=== PATIENT | female | born 1980 | race African-American/Black ===

== ENCOUNTER 2017-03-05 08:26 | Emergency (ER) | payer MEDICARE, MEDICAID ==
[~2017-03-05] VITALS: Ht 165.1 cm; Wt 99.8 kg
[~2017-03-05 08:26] MED LIST: DEXAMETHASONE PO; INSLANTI SUBCUT; LEVE100012 PO; NOVOLOG INSULIN SUBCUT
[2017-03-05 08:37] VITALS: BP 148/95
== END 2017-03-05 09:20 | disposition home or self-care (01) ==
LOC: ER 08:29
DX: J03.90 Acute tonsillitis, unspecified (principal); E11.9 Type 2 diabetes mellitus without complications; E78.5 Hyperlipidemia, unspecified; I10 Essential (primary) hypertension; Z98.51 Tubal ligation status

== ENCOUNTER 2017-07-09 14:19 | Emergency (ER) | payer MEDICARE, MEDICAID ==
[~2017-07-09] VITALS: Ht 165.1 cm; Wt 100.7 kg
[2017-07-09 14:36] VITALS: BP 144/93
[2017-07-09] MEDS ORDERED: methylPREDNISolone SOD SUCC 125 MG/2 ML VL IM ONE (19:00)
[2017-07-09] MEDS ORDERED: KETOROLAC TROMETH 60MG/2ML VIAL IM ONE (19:00)
== END 2017-07-09 19:11 | disposition home or self-care (01) ==
LOC: ER 14:25
DX: M54.16 Radiculopathy, lumbar region (principal); M79.1 Myalgia; E11.9 Type 2 diabetes mellitus without complications; E78.5 Hyperlipidemia, unspecified; I10 Essential (primary) hypertension; Z79.899 Other long term (current) drug therapy; Z98.51 Tubal ligation status
CPT/HCPCS: 96372; 99284; J1885; J2930

== ENCOUNTER 2017-09-16 08:16 | Emergency (ER) | payer MEDICAID, MEDICARE ==
[~2017-09-16] VITALS: Ht 165.1 cm; Wt 99.8 kg
[2017-09-16 08:35] VITALS: BP 138/91
== END 2017-09-16 09:39 | disposition home or self-care (01) ==
LOC: ER 08:16
DX: J20.9 Acute bronchitis, unspecified (principal); E11.9 Type 2 diabetes mellitus without complications; E78.5 Hyperlipidemia, unspecified; I10 Essential (primary) hypertension; Z98.51 Tubal ligation status

== ENCOUNTER 2018-04-25 17:12 | Emergency (ER) | payer MEDICARE ==
[~2018-04-25] VITALS: Ht 165.1 cm; Wt 103.9 kg
[2018-04-25 17:54] VITALS: BP 143/97
== END 2018-04-25 18:35 | disposition home or self-care (01) ==
LOC: ER 17:12
DX: R05 Cough (principal); E11.9 Type 2 diabetes mellitus without complications; E78.5 Hyperlipidemia, unspecified; I10 Essential (primary) hypertension; Z98.51 Tubal ligation status

== ENCOUNTER 2019-04-07 19:25 | Emergency (ER) | payer MEDICARE ==
[~2019-04-07] VITALS: Ht 165.1 cm; Wt 99.8 kg
[~2019-04-07 19:25] MED LIST changes: -DEXAMETHASONE PO; +KEP500T PO; -LEVE100012 PO; +LISI-646 PO; +SIMV-8 PO; +TRAZ100T2 PO
[2019-04-07 19:30] VITALS: BP 118/68
[2019-04-07 22:23] LABS: Urine Bacteria NONE SEEN /hpf (None Seen); Urine Blood Negative /uL (Negative); Urine Mucus FEW (None Seen); Urine Specific Gravity 1.034 (1.001-1.035); Urine WBC 3 /hpf (0 - 5)
[2019-04-07] MEDS ORDERED: methylPREDNISolone SOD SUCC 125 MG/2 ML VL IM ONE (22:45)
[2019-04-07] MEDS ORDERED: KETOROLAC TROMETH 60MG/2ML VIAL IM ONE (22:45)
== END 2019-04-07 23:46 | disposition home or self-care (01) ==
LOC: ER 19:28
DX: S86.912A Strain of unspecified muscle(s) and tendon(s) at lower leg level, left leg, initial encounter (principal); S86.911A Strain of unspecified muscle(s) and tendon(s) at lower leg level, right leg, initial encounter; M65.231 Calcific tendinitis, right forearm; E11.9 Type 2 diabetes mellitus without complications; E78.5 Hyperlipidemia, unspecified; I10 Essential (primary) hypertension; Z98.51 Tubal ligation status; X58.XXXA Exposure to other specified factors, initial encounter; Y93.89 Activity, other specified; Y99.8 Other external cause status; Y92.89 Other specified places as the place of occurrence of the external cause
CPT/HCPCS: 81001; 96372; 99283; J1885; J2930

== ENCOUNTER 2020-05-09 18:35 | Emergency (ER) | payer MEDICARE ==
[~2020-05-09] VITALS: Ht 165.1 cm; Wt 104.3 kg
[~2020-05-09 18:35] MED LIST changes: -TRAZ100T2 PO; +TRAZ100T3 PO
[2020-05-09 21:08] VITALS: BP 134/83
== END 2020-05-09 21:28 | disposition home or self-care (01) ==
LOC: ER 18:35
DX: S16.1XXA Strain of muscle, fascia and tendon at neck level, initial encounter (principal); M62.838 Other muscle spasm; M25.511 Pain in right shoulder; E11.9 Type 2 diabetes mellitus without complications; E78.5 Hyperlipidemia, unspecified; I10 Essential (primary) hypertension; Z98.51 Tubal ligation status; W18.39XA Other fall on same level, initial encounter; Y93.89 Activity, other specified; Y92.89 Other specified places as the place of occurrence of the external cause; Y99.8 Other external cause status

== ENCOUNTER 2021-09-08 07:27 | Emergency (ER) | payer MEDICARE, OTHER ==
[~2021-09-08] VITALS: Ht 165.1 cm; Wt 102.1 kg
[~2021-09-08 07:27] MED LIST changes: -LISI-646 PO; +LISI20TA28 PO
[2021-09-08] MEDS ORDERED: predniSONE 20 MG TAB PO ONE (08:00)
[2021-09-08] MEDS ORDERED: AZITHROMYCIN 250 MG TAB PO ONE (10:00)
[2021-09-08] MEDS ORDERED: AZIT250T9 PO (10:05)
[2021-09-08 10:43] VITALS: BP 142/93
== END 2021-09-08 10:50 | disposition home or self-care (01) ==
LOC: ER 07:27
DX: R05.9 Cough, unspecified (principal); H00.019 Hordeolum externum unspecified eye, unspecified eyelid; J32.9 Chronic sinusitis, unspecified; I10 Essential (primary) hypertension; E11.9 Type 2 diabetes mellitus without complications; E78.5 Hyperlipidemia, unspecified; Z79.4 Long term (current) use of insulin; Z79.899 Other long term (current) drug therapy; Z20.822 Contact with and (suspected) exposure to COVID-19
CPT/HCPCS: 36415; 87426; 99283; J7512

== ENCOUNTER 2023-12-30 07:24 | Emergency (ER) | payer OTHER ==
[~2023-12-30] VITALS: Ht 165.1 cm; Wt 108.2 kg
[~2023-12-30 07:24] MED LIST changes: -LISI20TA28 PO; +LISI20TA56 PO; -SIMV-8 PO; +SIMV20TA20 PO; +TRAZ-228 PO; -TRAZ100T3 PO
[2023-12-30 08:11] LABS: Hemoglobin 11.2 g/dL (12.2-16.2); Lymphocytes # (auto) 2.2 10 ^3/uL (0.4-5.4); Monocytes # (auto) 0.6 10 ^3/uL (0-1.3); Red Cell Distribution Width 15.4 % (11.8-14.3)
[2023-12-30 08:12] LABS: Basophils # (auto) 0 10 ^3/uL (0-0.2); Basophils % (auto) 0.5 % (0.0-2.0); Eosinophils # (auto) 0.2 10 ^3/uL (0-0.8); Hematocrit 34.9 % (36.0-46.0); Lymphocytes % (auto) 27.9 % (10.0-50.0); Mean Corpuscular Hgb Conc. 32.1 g/dL (32.0-36.0); Mean Corpuscular Volume 81.1 fL (80.0-100.0); Monocytes % (auto) 7.4 % (0.0-12.0); Neutrophils # (auto) 4.9 10 ^3/uL (1.6-8.6); Neutrophils % (auto) 61.2 % (37.0-80.0); Red Blood Cells 4.31 10^6/uL (4.0-5.20); White Blood Cell 8.1 10^3/uL (4.4-10.8)
[2023-12-30 09:08] LABS: Urine Bacteria FEW /hpf (None Seen); Urine Blood 3+ /uL (Negative); Urine Clarity HAZY (Clear); Urine Color Red (Yellow); Urine Protein, UAD 1+ (Negative); Urine Urobilinogen Normal (Negative); Urine WBC 87 /hpf (0 - 5); Urine pH 6.5 (5.0-8.0)
[2023-12-30] MEDS ORDERED: MEDR5TAB28 PO ×3 (11:27→11:58)
[2023-12-30] MEDS ORDERED: CEPH500T PO ×3 (11:31→11:58)
[2023-12-30 12:00] VITALS: BP 157/100; PULSE 83; RESP 16; TEMP 98; O2SAT 95
== END 2023-12-30 12:02 | disposition home or self-care (01) ==
LOC: ER 07:24
DX: N85.00 Endometrial hyperplasia, unspecified (principal); R10.2 Pelvic and perineal pain; N39.0 Urinary tract infection, site not specified; I10 Essential (primary) hypertension; E11.9 Type 2 diabetes mellitus without complications; E78.5 Hyperlipidemia, unspecified; Z98.890 Other specified postprocedural states; Z79.899 Other long term (current) drug therapy
CPT/HCPCS: 36415; 76856; 81001; 84702; 85025

== ENCOUNTER → 2024-01-10 | Outpatient (CLI) | payer OTHER ==
[~2024-01-10] MED LIST changes: +CEPH500T PO; +MEDR5TAB28 PO
[2024-01-10 14:18] LABS: Monocytes # (auto) 0.5 10 ^3/uL (0-1.3); Neutrophils # (auto) 4.5 10 ^3/uL (1.6-8.6)
[2024-01-10 14:20] LABS: Basophils # (auto) 0.1 10 ^3/uL (0-0.2); Basophils % (auto) 0.8 % (0.0-2.0); Eosinophils # (auto) 0.1 10 ^3/uL (0-0.8); Eosinophils % (auto) 2.1 % (0.0-7.0); Hematocrit 33.4 % (36.0-46.0); Hemoglobin 10.8 g/dL (12.2-16.2); Lymphocytes % (auto) 27.7 % (10.0-50.0); Mean Corpuscular Hgb Conc. 32.5 g/dL (32.0-36.0); Mean Corpuscular Volume 80.2 fL (80.0-100.0); Monocytes % (auto) 6.3 % (0.0-12.0); Neutrophils % (auto) 63.1 % (37.0-80.0); Red Blood Cells 4.16 10^6/uL (4.0-5.20); Red Cell Distribution Width 15.4 % (11.8-14.3); White Blood Cell 7.2 10^3/uL (4.4-10.8)
[2024-01-10 14:27] LABS: Urine Bacteria NONE SEEN /hpf (None Seen); Urine Blood 3+ /uL (Negative); Urine Clarity HAZY (Clear); Urine Color Yellow (Yellow); Urine Protein, UAD 1+ (Negative); Urine Specific Gravity 1.022 (1.001-1.035); Urine Urobilinogen Normal (Negative); Urine WBC 21 /hpf (0 - 5); Urine pH 6.5 (5.0-8.0)
[2024-01-10 14:55] LABS: Alanine Aminotransferase 13 U/L (7-40); Albumin 4.2 g/dL (3.2-4.8); Alkaline Phosphatase 111 U/L (46-116); Anion Gap 4 (5-15); Aspartate Aminotransferase 11 U/L (13-40); BUN/Creatinine Ratio 13.3 (10.0-20.0); Bilirubin, Total 0.5 mg/dL (0.2-1.0); Blood Urea Nitrogen 11 mg/dL (9-23); Calcium 8.7 mg/dL (8.7-10.4); Carbon Dioxide 28 mmol/L (20-30); Chloride 108 mmol/L (98-107); Glucose 86 mg/dL (74-106); Potassium 3.6 mmol/L (3.5-5.1); Sodium 140 mmol/L (136-145); Total Protein 7.2 g/dL (5.7-8.2)
[2024-01-10 15:09] LABS: Triglycerides 49 mg/dL (< 150)
[2024-01-10 15:10] LABS: LDL Cholesterol 77 mg/dL (< 100)
[2024-01-10 15:11] LABS: Cholesterol 119 mg/dL (< 200); HDL Cholesterol 33 mg/dL (40-59)
== END | disposition home or self-care (01) ==
LOC: LAB 13:55
PROVIDERS: ATTEND Nurse Practitioner Gerontology
DX: Z29.9 Encounter for prophylactic measures, unspecified (principal); I10 Essential (primary) hypertension; G93.89 Other specified disorders of brain; Z86.73 Personal history of transient ischemic attack (TIA), and cerebral infarction without residual deficits
CPT/HCPCS: 36415; 80053; 80061; 81001; 83036; 84436; 84443; 84480; 85025; 87086

== ENCOUNTER 2024-01-16 13:37 | Emergency (ER) | payer OTHER ==
[~2024-01-16] VITALS: Ht 165.1 cm; Wt 108.3 kg
[2024-01-16 15:36] LABS: Basophils # (auto) 0 10 ^3/uL (0-0.2); Basophils % (auto) 0.6 % (0.0-2.0); Eosinophils # (auto) 0.3 10 ^3/uL (0-0.8); Eosinophils % (auto) 3.3 % (0.0-7.0); Hematocrit 33.4 % (36.0-46.0); Hemoglobin 10.8 g/dL (12.2-16.2); Lymphocytes # (auto) 2.4 10 ^3/uL (0.4-5.4); Lymphocytes % (auto) 29.4 % (10.0-50.0); Mean Corpuscular Hemoglobin 25.9 pg (28.0-32.0); Mean Corpuscular Hgb Conc. 32.4 g/dL (32.0-36.0); Mean Corpuscular Volume 80.1 fL (80.0-100.0); Monocytes # (auto) 0.6 10 ^3/uL (0-1.3); Monocytes % (auto) 7.2 % (0.0-12.0); Neutrophils # (auto) 4.8 10 ^3/uL (1.6-8.6); Neutrophils % (auto) 59.5 % (37.0-80.0); Nucleated Red Blood Cells % 0.1 %; Red Blood Cells 4.17 10^6/uL (4.0-5.20); Red Cell Distribution Width 15.1 % (11.8-14.3)
[2024-01-16 15:52] LABS: Alanine Aminotransferase 12 U/L (7-40); Albumin 4.4 g/dL (3.2-4.8); Alkaline Phosphatase 124 U/L (46-116); Anion Gap 5 (5-15); Aspartate Aminotransferase 14 U/L (13-40); BUN/Creatinine Ratio 12.6 (10.0-20.0); Bilirubin, Total 0.4 mg/dL (0.2-1.0); Blood Urea Nitrogen 11 mg/dL (9-23); Calcium 9.2 mg/dL (8.5-10.1); Carbon Dioxide 29 mmol/L (20-30); Chloride 106 mmol/L (98-107); Glucose 124 mg/dL (74-106); Potassium 4.1 mmol/L (3.5-5.1); Sodium 140 mmol/L (136-145); Total Protein 7.1 g/dL (5.7-8.2)
[2024-01-16] MEDS: KETOROLAC TROMETH 60MG/2ML VIAL IM ONE (19:16)
[2024-01-16 19:20] VITALS: BP 156/95; PULSE 84; RESP 18; O2SAT 97
== END 2024-01-16 19:21 | disposition home or self-care (01) ==
LOC: ER 13:37
DX: N85.00 Endometrial hyperplasia, unspecified (principal); D50.0 Iron deficiency anemia secondary to blood loss (chronic); N93.9 Abnormal uterine and vaginal bleeding, unspecified; I10 Essential (primary) hypertension; E11.9 Type 2 diabetes mellitus without complications; E78.5 Hyperlipidemia, unspecified; Z98.890 Other specified postprocedural states; Z79.899 Other long term (current) drug therapy
CPT/HCPCS: 36415; 76856; 80053; 83690; 83735; 85025; 96372; 99285; J1885

== ENCOUNTER 2024-01-23 16:42 | Emergency (ER) | payer OTHER ==
[~2024-01-23] VITALS: Ht 165.1 cm; Wt 109.0 kg
[2024-01-23 16:42] VITALS: BP 157/93; PULSE 92; RESP 18; O2SAT 97
[2024-01-23 18:48] LABS: Basophils # (auto) 0.1 10 ^3/uL (0-0.2); Basophils % (auto) 0.6 % (0.0-2.0); Eosinophils # (auto) 0.2 10 ^3/uL (0-0.8); Eosinophils % (auto) 2.4 % (0.0-7.0); Hematocrit 31.6 % (36.0-46.0); Hemoglobin 10.1 g/dL (12.2-16.2); Lymphocytes # (auto) 2.3 10 ^3/uL (0.4-5.4); Lymphocytes % (auto) 24.3 % (10.0-50.0); Mean Corpuscular Hemoglobin 25.4 pg (28.0-32.0); Mean Corpuscular Hgb Conc. 31.9 g/dL (32.0-36.0); Mean Corpuscular Volume 79.6 fL (80.0-100.0); Monocytes # (auto) 0.8 10 ^3/uL (0-1.3); Neutrophils # (auto) 6.2 10 ^3/uL (1.6-8.6); Neutrophils % (auto) 64.7 % (37.0-80.0); Red Blood Cells 3.98 10^6/uL (4.0-5.20); Red Cell Distribution Width 15.1 % (11.8-14.3); White Blood Cell 9.6 10^3/uL (4.4-10.8)
[2024-01-23 19:13] LABS: Chloride 108 mmol/L (98-107); Potassium 3.8 mmol/L (3.5-5.1); Sodium 141 mmol/L (136-145)
[2024-01-23 19:14] LABS: Anion Gap 4 (5-15); Calcium 9.2 mg/dL (8.5-10.1); Carbon Dioxide 29 mmol/L (20-30)
[2024-01-23 19:19] LABS: Blood Urea Nitrogen 10 mg/dL (9-23); Glucose 83 mg/dL (74-106)
[2024-01-23] MEDS ORDERED: MEDR10TA9 PO (20:57)
[2024-01-23] MEDS ORDERED: HYDR-4902 PO (20:57)
== END 2024-01-23 22:11 | disposition home or self-care (01) ==
LOC: ER 16:42
DX: D50.0 Iron deficiency anemia secondary to blood loss (chronic) (principal); N93.9 Abnormal uterine and vaginal bleeding, unspecified; R93.89 Abnormal findings on diagnostic imaging of other specified body structures; I10 Essential (primary) hypertension; E11.9 Type 2 diabetes mellitus without complications; E78.5 Hyperlipidemia, unspecified; Z98.890 Other specified postprocedural states; Z79.899 Other long term (current) drug therapy
CPT/HCPCS: 36415; 80048; 85025; 86850; 86900; 86901

== ENCOUNTER 2024-05-01 14:28 | Emergency (ER) | payer OTHER ==
[~2024-05-01] VITALS: Ht 165.1 cm; Wt 107.3 kg
[~2024-05-01 14:28] MED LIST changes: +HYDR-4902 PO; +MEDR10TA9 PO
[2024-05-01 15:40] LABS: Urine Bacteria None Seen /hpf (None Seen)
[2024-05-01 15:57] LABS: Urine Blood 3+ /uL (Negative); Urine Clarity Ex.Turbid (Clear); Urine Color Light-Red (Yellow); Urine Mucus FEW (None Seen); Urine Protein, UAD 1+ (Negative); Urine Specific Gravity 1.026 (1.001-1.035); Urine Urobilinogen Normal (Negative); Urine WBC 312 /hpf (0 - 5); Urine WBC Clumps PRESENT /hpf (None Seen); Urine pH 5.5 (5.0-9.0)
[2024-05-01 16:07] LABS: Basophils # (auto) 0 10 ^3/uL (0-0.2); Basophils % (auto) 0.5 % (0.0-2.0); Hemoglobin 9.4 g/dL (12.2-16.2); Lymphocytes # (auto) 1.7 10 ^3/uL (0.4-5.4); Monocytes # (auto) 0.5 10 ^3/uL (0-1.3); Red Cell Distribution Width 17.9 % (11.8-14.3); White Blood Cell 7.2 10^3/uL (4.4-10.8)
[2024-05-01 16:09] LABS: Eosinophils # (auto) 0.2 10 ^3/uL (0-0.8); Eosinophils % (auto) 2.2 % (0.0-7.0); Hematocrit 30.2 % (36.0-46.0); Lymphocytes % (auto) 23.3 % (10.0-50.0); Mean Corpuscular Hemoglobin 21.8 pg (28.0-32.0); Mean Corpuscular Hgb Conc. 31.1 g/dL (32.0-36.0); Mean Corpuscular Volume 70.2 fL (80.0-100.0); Monocytes % (auto) 7.1 % (0.0-12.0); Neutrophils # (auto) 4.9 10 ^3/uL (1.6-8.6); Neutrophils % (auto) 66.9 % (37.0-80.0); Nucleated Red Blood Cells % 0.1 %
[2024-05-01 16:27] LABS: Alanine Aminotransferase 12 U/L (7-40); Alkaline Phosphatase 93 U/L (46-116); Anion Gap 3 (5-15); Aspartate Aminotransferase < 8 U/L (13-40); BUN/Creatinine Ratio 12.5 (10.0-20.0); Blood Urea Nitrogen 11 mg/dL (9-23); Calcium 9.5 mg/dL (8.5-10.1); Carbon Dioxide 30 mmol/L (20-30); Chloride 106 mmol/L (98-107); Glucose 91 mg/dL (74-106); Potassium 3.7 mmol/L (3.5-5.1); Sodium 139 mmol/L (136-145)
[2024-05-01 16:28] LABS: Bilirubin, Total 0.3 mg/dL (0.2-1.0)
[2024-05-01 16:29] LABS: Total Protein 6.8 g/dL (5.7-8.2)
[2024-05-01] MEDS: SODIUM CHLORIDE 0.9% 1,000 ML IV ONE (17:17)
[2024-05-01] MEDS ORDERED: NITR-87 PO (18:19)
[2024-05-01 19:16] LABS: Hemoglobin 9.6 g/dL (12.2-16.2)
[2024-05-01 19:19] LABS: Hematocrit 30.5 % (36.0-46.0)
[2024-05-01 21:00] VITALS: BP 146/92; PULSE 83; RESP 18; TEMP 98.3; O2SAT 100
== END 2024-05-01 21:09 | disposition home or self-care (01) ==
LOC: ER 14:28
DX: N93.9 Abnormal uterine and vaginal bleeding, unspecified (principal); D50.0 Iron deficiency anemia secondary to blood loss (chronic); N39.0 Urinary tract infection, site not specified; I10 Essential (primary) hypertension; E11.9 Type 2 diabetes mellitus without complications; E78.5 Hyperlipidemia, unspecified; Z98.890 Other specified postprocedural states; Z79.899 Other long term (current) drug therapy
CPT/HCPCS: 36415; 76830; 76856; 80053; 81001; 85014; 85018; 85025; 86850; 86900; 86901; 96360; 99284; J7030

== ENCOUNTER 2024-05-13 00:58 | Emergency (ER) | payer OTHER ==
[~2024-05-13] VITALS: Ht 165.1 cm; Wt 107.8 kg
[~2024-05-13 00:58] MED LIST changes: +NITR-87 PO
[2024-05-13 01:30] VITALS: BP 117/87; PULSE 74; RESP 16; O2SAT 99
[2024-05-13] MEDS: FAMOTIDINE (10MG/ML) 2ML VL IV ONE (01:57)
[2024-05-13] MEDS: DexAMETHasone SOD PHOS 10MG/1ML VIAL INJ IV ONE (01:57)
[2024-05-13] MEDS: diphenhdrAMINE HCL 50 MG/1 ML VL IV ONE (01:57)
[2024-05-13] MEDS ORDERED: methylPREDNISolone SOD SUCC 125 MG/2 ML VL IM ONE (02:00)
[2024-05-13] MEDS ORDERED: FAMO20TA10 PO (02:07)
[2024-05-13] MEDS ORDERED: DIPH25TA54 PO (02:07)
[2024-05-13] MEDS ORDERED: PRED20TA2 PO (02:07)
[2024-05-13] MEDS: EPINEPHrine HCL 1 MG/1 ML AMP IM ONE (02:22)
== END 2024-05-13 03:22 | disposition home or self-care (01) ==
LOC: ER 00:58
DX: T78.40XA Allergy, unspecified, initial encounter (principal); E78.5 Hyperlipidemia, unspecified; I10 Essential (primary) hypertension; Z79.899 Other long term (current) drug therapy; Z98.51 Tubal ligation status; Z79.4 Long term (current) use of insulin; X58.XXXA Exposure to other specified factors, initial encounter
CPT/HCPCS: 96372; 96374; 96375; 99284; J0171; J1100; J1200; J3490

== ENCOUNTER 2024-05-21 21:43 | Emergency (ER) | payer OTHER ==
[~2024-05-21] VITALS: Ht 165.1 cm; Wt 107.1 kg
[~2024-05-21 21:43] MED LIST changes: +DIPH25TA54 PO; +FAMO20TA10 PO; +PRED20TA2 PO
[2024-05-21 22:56] LABS: Basophils # (auto) 0.1 10 ^3/uL (0-0.2); Basophils % (auto) 0.8 % (0.0-2.0); Eosinophils # (auto) 0.3 10 ^3/uL (0-0.8); Eosinophils % (auto) 2.5 % (0.0-7.0); Hematocrit 26.8 % (36.0-46.0); Hemoglobin 8.4 g/dL (12.2-16.2); Lymphocytes # (auto) 2.5 10 ^3/uL (0.4-5.4); Lymphocytes % (auto) 22.1 % (10.0-50.0); Mean Corpuscular Hemoglobin 21.6 pg (28.0-32.0); Mean Corpuscular Hgb Conc. 31.2 g/dL (32.0-36.0); Monocytes % (auto) 8.5 % (0.0-12.0); Neutrophils # (auto) 7.4 10 ^3/uL (1.6-8.6); Neutrophils % (auto) 66.1 % (37.0-80.0); Nucleated Red Blood Cells % 0.1 %; Red Blood Cells 3.88 10^6/uL (4.0-5.20); Red Cell Distribution Width 18.3 % (11.8-14.3); White Blood Cell 11.2 10^3/uL (4.4-10.8)
[2024-05-21 23:03] LABS: Urine Bacteria None Seen /hpf (None Seen)
[2024-05-21 23:17] LABS: Chloride 108 mmol/L (98-107); Potassium 3.6 mmol/L (3.5-5.1); Sodium 140 mmol/L (136-145)
[2024-05-21 23:18] LABS: Anion Gap 6 (5-15); Carbon Dioxide 26 mmol/L (20-30)
[2024-05-21 23:19] LABS: Calcium 8.9 mg/dL (8.5-10.1)
[2024-05-21 23:23] LABS: Urine Blood 3+ /uL (Negative); Urine Clarity Turbid (Clear); Urine Mucus FEW (None Seen); Urine Protein, UAD 1+ (Negative); Urine Specific Gravity 1.026 (1.001-1.035); Urine Urobilinogen Normal (Negative); Urine WBC 9 /hpf (0 - 5); Urine pH 7.5 (5.0-9.0)
[2024-05-21 23:23] LABS: Glucose 121 mg/dL (74-106)
[2024-05-21 23:24] LABS: BUN/Creatinine Ratio 14.5 (10.0-20.0); Blood Urea Nitrogen 12 mg/dL (9-23)
[2024-05-21 23:25] LABS: Urine Color Red (Yellow)
[2024-05-22 06:20] VITALS: PULSE 71; RESP 16; O2SAT 97
[2024-05-22 07:25] VITALS: PULSE 70; RESP 13; TEMP 97.9; O2SAT 99
[2024-05-22] MEDS: SULFAMETHOX W/TRIMETH(800/160MG) DS TAB PO ONE (08:02)
[2024-05-22] MEDS ORDERED: BACDST PO (08:52)
[2024-05-22 09:35] VITALS: BP 133/77; PULSE 76; RESP 12; O2SAT 99
== END 2024-05-22 09:53 | disposition home or self-care (01) ==
LOC: ER 21:43
DX: N39.0 Urinary tract infection, site not specified (principal); E78.5 Hyperlipidemia, unspecified; I10 Essential (primary) hypertension; Z98.51 Tubal ligation status; Z79.52 Long term (current) use of systemic steroids; Z79.4 Long term (current) use of insulin; Z79.899 Other long term (current) drug therapy
CPT/HCPCS: 36415; 80048; 81001; 81025; 85025; 86850; 86900; 86901

== ENCOUNTER → 2024-05-27 | Outpatient (CLI) | payer OTHER ==
[~2024-05-27] MED LIST changes: +BACDST PO; -FAMO20TA10 PO
[2024-05-27 08:26] LABS: Urine Bacteria None Seen /hpf (None Seen)
[2024-05-27 08:31] LABS: Red Cell Distribution Width 18.5 % (11.8-14.3)
[2024-05-27 08:37] LABS: Basophils # (auto) 0.1 10 ^3/uL (0-0.2); Basophils % (auto) 0.7 % (0.0-2.0); Eosinophils # (auto) 0.2 10 ^3/uL (0-0.8); Eosinophils % (auto) 2.5 % (0.0-7.0); Hematocrit 26.3 % (36.0-46.0); Hemoglobin 8.5 g/dL (12.2-16.2); Lymphocytes # (auto) 2.3 10 ^3/uL (0.4-5.4); Mean Corpuscular Hgb Conc. 32.1 g/dL (32.0-36.0); Mean Corpuscular Volume 68.5 fL (80.0-100.0); Monocytes # (auto) 0.7 10 ^3/uL (0-1.3); Monocytes % (auto) 7.2 % (0.0-12.0); Neutrophils # (auto) 6.3 10 ^3/uL (1.6-8.6); Neutrophils % (auto) 65.6 % (37.0-80.0); Red Blood Cells 3.85 10^6/uL (4.0-5.20); White Blood Cell 9.5 10^3/uL (4.4-10.8)
[2024-05-27 08:46] LABS: Urine Blood Negative /uL (Negative); Urine Clarity Clear (Clear); Urine Color Yellow (Yellow); Urine Mucus FEW (None Seen); Urine Protein, UAD TRACE (Negative); Urine Specific Gravity 1.025 (1.001-1.035); Urine Urobilinogen Normal (Negative); Urine WBC 4 /hpf (0 - 5)
[2024-05-27 09:07] LABS: Alanine Aminotransferase 11 U/L (7-40); Alkaline Phosphatase 105 U/L (46-116); Anion Gap 5 (5-15); Aspartate Aminotransferase < 8 U/L (13-40); BUN/Creatinine Ratio 14.2 (10.0-20.0); Blood Urea Nitrogen 15 mg/dL (9-23); Calcium 9.1 mg/dL (8.5-10.1); Carbon Dioxide 24 mmol/L (20-30); Chloride 109 mmol/L (98-107); Glucose 147 mg/dL (74-106); LDL Cholesterol 92 mg/dL (< 100); Potassium 3.7 mmol/L (3.5-5.1); Sodium 138 mmol/L (136-145); Triglycerides 104 mg/dL (< 150)
[2024-05-27 09:08] LABS: Bilirubin, Total 0.2 mg/dL (0.2-1.0); Cholesterol 130 mg/dL (< 200); HDL Cholesterol 28 mg/dL (40-59); Total Protein 6.5 g/dL (5.7-8.2)
== END | disposition home or self-care (01) ==
LOC: LAB 08:17
PROVIDERS: ATTEND Internal Medicine
DX: Z13.1 Encounter for screening for diabetes mellitus (principal); Z00.01 Encounter for general adult medical examination with abnormal findings; D50.9 Iron deficiency anemia, unspecified; N39.0 Urinary tract infection, site not specified; D21.9 Benign neoplasm of connective and other soft tissue, unspecified; Z79.899 Other long term (current) drug therapy
CPT/HCPCS: 36415; 80053; 80061; 81001; 83036; 84439; 84443; 85025

== ENCOUNTER → 2024-05-28 | Outpatient (CLI) | payer OTHER ==
[2024-05-29 08:06] LABS: RPR Non Reactive (Non Reactive)
[2024-05-30 08:06] LABS: Chlamydia Trachomatis, NAA Negative (Negative); Neisseria gonorrhoeae, NAA Negative (Negative)
== END | disposition home or self-care (01) ==
LOC: LAB 09:37
PROVIDERS: ATTEND Obstetrics & Gynecology
DX: Z11.3 Encounter for screening for infections with a predominantly sexual mode of transmission (principal)
CPT/HCPCS: 36415; 86592; 86703; 87340; 87902

== ENCOUNTER → 2024-08-12 | Outpatient (CLI) | payer OTHER ==
[~2024-08-12] MED LIST changes: +METH4PAK PO
[2024-08-12 11:27] LABS: Basophils # (auto) 0.1 10 ^3/uL (0-0.2); Basophils % (auto) 0.9 % (0.0-2.0); Eosinophils # (auto) 0.3 10 ^3/uL (0-0.8); Eosinophils % (auto) 4.1 % (0.0-7.0); Hematocrit 25.4 % (36.0-46.0); Lymphocytes # (auto) 2.1 10 ^3/uL (0.4-5.4); Lymphocytes % (auto) 33.3 % (10.0-50.0); Mean Corpuscular Hemoglobin 19.7 pg (28.0-32.0); Mean Corpuscular Hgb Conc. 31.5 g/dL (32.0-36.0); Mean Corpuscular Volume 62.6 fL (80.0-100.0); Monocytes # (auto) 0.6 10 ^3/uL (0-1.3); Monocytes % (auto) 9.6 % (0.0-12.0); Neutrophils # (auto) 3.3 10 ^3/uL (1.6-8.6); Neutrophils % (auto) 52.1 % (37.0-80.0); Platelet Count (auto) 435 10^3/uL (140-450); Red Blood Cells 4.06 10^6/uL (4.0-5.20); Red Cell Distribution Width 17.8 % (11.8-14.3); White Blood Cell 6.3 10^3/uL (4.4-10.8)
[2024-08-12 11:47] LABS: Chloride 109 mmol/L (98-107); Potassium 3.6 mmol/L (3.5-5.1); Sodium 140 mmol/L (136-145)
[2024-08-12 11:48] LABS: Anion Gap 3 (5-15); Carbon Dioxide 28 mmol/L (20-30)
[2024-08-12 11:49] LABS: Calcium 9.4 mg/dL (8.7-10.4)
[2024-08-12 11:53] LABS: BUN/Creatinine Ratio 11.5 (10.0-20.0); Blood Urea Nitrogen 10 mg/dL (9-23); Glucose 119 mg/dL (74-106)
== END | disposition home or self-care (01) ==
LOC: LAB 11:01
PROVIDERS: ATTEND Internal Medicine
DX: I13.10 Hypertensive heart and chronic kidney disease without heart failure, with stage 1 through stage 4 chronic kidney disease, or unspecified chronic kidney disease (principal); N18.2 Chronic kidney disease, stage 2 (mild); D50.0 Iron deficiency anemia secondary to blood loss (chronic)
CPT/HCPCS: 36415; 80048; 85025

== ENCOUNTER 2024-09-27 18:01 | Emergency (ER) | payer OTHER ==
[~2024-09-27] VITALS: Ht 165.1 cm; Wt 106.2 kg
[~2024-09-27 18:01] MED LIST changes: +AMLO1TAB23 PO; +ATOR-507 PO; -BACDST PO; -CEPH500T PO; -DIPH25TA54 PO; +DOCU-94 PO; +FER325T PO; -HYDR-4902 PO; -INSLANTI SUBCUT; -KEP500T PO; -LISI20TA56 PO; -MEDR5TAB28 PO; -METH4PAK PO; -NITR-87 PO; -NOVOLOG INSULIN SUBCUT; -PRED20TA2 PO; -SIMV20TA20 PO; -TRAZ-228 PO
[2024-09-27 18:11] VITALS: TEMP 98
[2024-09-27 18:16] VITALS: BP 139/75; PULSE 94; RESP 18; O2SAT 98
[2024-09-27] MEDS ORDERED: METH4PAK PO (18:32)
[2024-09-27] MEDS ORDERED: BENZ100C97 PO (18:32)
== END 2024-09-27 18:40 | disposition home or self-care (01) ==
LOC: ER 18:01
DX: B08.5 Enteroviral vesicular pharyngitis (principal); E78.5 Hyperlipidemia, unspecified; I10 Essential (primary) hypertension; Z88.8 Allergy status to other drugs, medicaments and biological substances; Z79.899 Other long term (current) drug therapy; Z98.891 History of uterine scar from previous surgery

== ENCOUNTER 2024-11-14 05:55 | Inpatient (IN) | payer OTHER ==
[2024-11-10 11:03] LABS: Urine Bacteria None Seen /hpf (None Seen)
[2024-11-10 11:06] LABS: Basophils # (auto) 0.1 10 ^3/uL (0-0.2); Basophils % (auto) 1.1 % (0.0-2.0); Eosinophils # (auto) 0.2 10 ^3/uL (0-0.8); Eosinophils % (auto) 2.8 % (0.0-7.0); Hematocrit 29.9 % (36.0-46.0); Lymphocytes # (auto) 1.6 10 ^3/uL (0.4-5.4); Lymphocytes % (auto) 27.1 % (10.0-50.0); Mean Corpuscular Hgb Conc. 30.3 g/dL (32.0-36.0); Mean Corpuscular Volume 62.7 fL (80.0-100.0); Monocytes # (auto) 0.7 10 ^3/uL (0-1.3); Monocytes % (auto) 11.1 % (0.0-12.0); Neutrophils # (auto) 3.5 10 ^3/uL (1.6-8.6); Neutrophils % (auto) 57.9 % (37.0-80.0); Platelet Count (auto) 430 10^3/uL (140-450); Red Blood Cells 4.77 10^6/uL (4.0-5.20); Red Cell Distribution Width 20.1 % (11.8-14.3); White Blood Cell 6.1 10^3/uL (4.4-10.8)
[2024-11-10 11:14] LABS: Urine Blood Negative /uL (Negative); Urine Clarity Clear (Clear); Urine Color Colorless (Yellow); Urine Protein, UAD Negative (Negative); Urine Specific Gravity 1.009 (1.001-1.035); Urine Squamous Epithelial Cell FEW /hpf (<5); Urine Urobilinogen Normal (Negative); Urine WBC <1 /hpf (0 - 5); Urine pH 7.5 (5.0-9.0)
[2024-11-10 11:29] LABS: INR 1.01 (0.9-1.15); Prothrombin Time 10.7 sec (9.3-11.8)
[2024-11-10 11:50] LABS: Alanine Aminotransferase 13 U/L (7-40); Albumin 4.3 g/dL (3.2-4.8); Anion Gap 6 (5-15); BUN/Creatinine Ratio 9.8 (10.0-20.0); Calcium 9.4 mg/dL (8.7-10.4); Carbon Dioxide 29 mmol/L (20-31); Chloride 104 mmol/L (98-107); Glucose 88 mg/dL (74-106); Sodium 139 mmol/L (136-145); Total Protein 7.4 g/dL (5.7-8.2)
[2024-11-10 11:51] LABS: Potassium 3.5 mmol/L (3.5-5.1)
[2024-11-10 11:52] LABS: Alkaline Phosphatase 125 U/L (46-116); Aspartate Aminotransferase 11 U/L (13-40); Bilirubin, Total 0.3 mg/dL (0.2-1.0); Blood Urea Nitrogen 8 mg/dL (9-23)
[2024-11-14] VITALS (7 sets, daily range): BP systolic 96–123; BP diastolic 56–77; PULSE 82–104; RESP 13–18; TEMP 97.6–98.2; O2SAT 93–97
[~2024-11-14] VITALS: Ht 165.1 cm; Wt 111.8 kg
[~2024-11-14 05:55] MED LIST changes: -DOCU-94 PO; -FER325T PO; -MEDR10TA9 PO
[2024-11-14] MEDS ORDERED: METOCLOPRAMIDE HCL 5MG/ml INJ 2ml VIAL IV ONE (07:00)
[2024-11-14] MEDS ORDERED: HYDROmorphone HCL 2 MG/ML VL/or syr IV PRN (07:00)
[2024-11-14] MEDS ORDERED: fentaNYL CITRATE 100 MCG/2 ML VL IV PRN (07:00)
[2024-11-14] MEDS ORDERED: MORPHINE SULFATE INJ 2 MG/ml SYRG IV PRN (07:00)
[2024-11-14] MEDS ORDERED: MIDAZOLAM HCL 2MG/2ML 2ml VIAL (1mg/ml) ONE (07:03)
[2024-11-14] MEDS ORDERED: LIDOCAINE 1% INJ PF 5ML AMP ONE (07:03)
[2024-11-14] MEDS ORDERED: NEOSTIGMINE 1 MG/ML INJ (10mg/10ML VIAL) ONE (07:03)
[2024-11-14] MEDS ORDERED: GLYCOPYRROLATE 0.2 MG/ML 1ML VIAL ONE (07:03)
[2024-11-14] MEDS ORDERED: ROCURONIUM 10MG/ML 10ML VIAL IV ONE (07:03)
[2024-11-14] MEDS ORDERED: ONDANSETRON HCL 4 MG/2 ML VIAL ONE (07:03)
[2024-11-14] MEDS ORDERED: PROPOFOL 10 MG/ML 20 ML IV ONE (07:03)
[2024-11-14] MEDS ORDERED: LIDOCAINE 2% TOPICAL JELLY 5 ML URJT TOP ONE (07:03)
[2024-11-14] MEDS ORDERED: MEPERIDINE HCL (50 MG/ML) 1 ML VIAL ONE (07:03)
[2024-11-14] MEDS ORDERED: fentaNYL CITRATE 100 MCG/2 ML VL ONE ×2 (07:03→09:17)
--- NOTE | 2024-11-14 07:18 | DVHHP ---
ADMIT DATE: 11/14/2024 CHIEF COMPLAINT: Heavy menstrual bleeding. HISTORY OF PRESENT ILLNESS: This is a 44-year-old -[place] female, 8, para 8, status post BTL. Last menstrual period 10/10/2024. The patient has had 8 prior vaginal deliveries. She has had a long history of menorrhagia with symptomatic anemia. She has had a prior blood transfusion. Ultrasound shows an enlarged 13 cm uterus with multiple small intramural fibroids. The patient also endorses pelvic pain and dysmenorrhea. She has failed outpatient conservative therapy with Provera. Her hemoglobin is currently 9 and she is not currently bleeding. PAST MEDICAL HISTORY: Significant for hypertension, history of CVA with right-sided weakness and deafness, increased cholesterol, history of seizure disorder since 2016. PAST SURGICAL HISTORY: Brain surgery x 2 for aneurysm, status post bilateral tubal ligation. CURRENT MEDICATIONS: Amlodipine and atorvastatin. ALLERGIES: LISINOPRIL. FAMILY HISTORY: Negative and noncontributory. REVIEW OF SYSTEMS: Fourteen-point review of systems is negative as otherwise stated in history of present illness. PHYSICAL EXAMINATION: GENERAL: She is obese, pleasant, no acute distress. HEENT: Normocephalic, atraumatic. EOMI. CHEST AND LUNGS: Clear to auscultation. CARDIOVASCULAR: Normal heart sounds. No murmurs or gallops. ABDOMEN: Obese, soft, nontender. No palpable masses. EXTREMITIES: Without cyanosis, deformity, or edema. PELVIC: Exam shows normal external female genitalia. Vagina is without lesions or discharge. Cervix is parous, no gross lesions. Uterus is enlarged, 12-14 week size, mobile; multiple fibroids are palpated. There is a moderate amount of uterine descensus. No adnexal palpable masses. RECTOVAGINAL: Exam is within normal limits. No masses or nodularity in the cul-de-sac. DIAGNOSTIC TESTING: The patient's latest Pap smear is normal. HPV negative. Endometrial biopsy is negative for hyperplasia or malignancy. ASSESSMENT: * Symptomatic fibroid uterus. * Pelvic pain. * Anemia. PLAN: The patient will be admitted for hysterectomy. The approach is a vNOTES natural orifice vaginal hysterectomy, possible laparoscopy, possible laparotomy, possible cystoscopy. The patient is also consented for possible bilateral salpingo-oophorectomy. She desires to keep her ovaries if normal. We will just attempt to remove the fallopian tubes. The risks, benefits and alternatives to surgery have been discussed with the patient. Informed consent has been obtained. Risks of pain, scar, bleeding, infection, injury to bowel, bladder, adjacent organs, possible sexual dysfunction, possible need for blood transfusion, have all been discussed with the patient and informed consent has been obtained. DO BENEDICT Cheney/CASTILLO TID: [id number] RECEIPT: [id number] MTDD
[2024-11-14] MEDS: ceFAZolin 2 GM/D5W100ml 100 ML IV ONE (07:35)
[2024-11-14] MEDS: VASOPRESSIN 20 UNIT/ML ONE (08:07)
[2024-11-14] MEDS ORDERED: IBUPROFEN 800 MG TAB PO PRN (10:30)
[2024-11-14] MEDS ORDERED: ONDANSETRON HCL 4 MG/2 ML VIAL IV PRN (10:30)
--- NOTE | 2024-11-14 10:37 | DVHOP ---
DATE OF SURGERY: 11/14/2024 PREOPERATIVE DIAGNOSES: * Symptomatic uterine fibroids. * Menorrhagia. * Pelvic pain. * Blood loss anemia, chronic. * Morbid obesity. * Status post bilateral tubal ligation. FINAL DIAGNOSES: * Symptomatic uterine fibroids. * Menorrhagia. * Pelvic pain. * Blood loss anemia, chronic. * Morbid obesity. * Status post bilateral tubal ligation. PROCEDURES PERFORMED: * Pelvic exam under anesthesia. * vNOTES. Total vaginal hysterectomy. * Left salpingectomy. * Drainage of left ovarian cyst. * Diagnostic cystoscopy. SURGEON: Cleveland Corona DO DENTAL CERAMIST HELPER: Hemant Ardon NP TYPE OF ANESTHESIA: General endotracheal. ANESTHESIOLOGIST: Asuncion Adame MD INDICATION FOR PROCEDURE: The patient is a 44-year-old -[place] female with longstanding history of menorrhagia, symptomatic anemia, status post blood transfusion. Uterus is enlarged 14-week size with multiple uterine fibroids. The patient has pelvic pain. She has failed conservative therapy and desires definitive treatment with hysterectomy. She has had a prior bilateral tubal ligation in the past. She desires to keep her ovaries. DESCRIPTION OF FINDINGS: An enlarged uterus 14-week size with multiple intramural leiomyoma. Benign-appearing bilateral ovaries. Benign-appearing fallopian tubes. The left fallopian tube was removed. The right fallopian tube could not be accessed vaginally and was not removed. No intraperitoneal evidence of lesions or malignancy. TECHNICAL PROCEDURE: After informed consent was obtained, the patient was taken to the operating room where she underwent smooth induction with general anesthesia. The patient was placed in dorsal lithotomy position in [facility]. The vagina, perineum, and abdomen were thoroughly prepped and draped in usual sterile fashion. A pelvic exam was then performed under anesthesia with the above-noted findings. A weighted speculum was placed into the patient's vagina. A transurethral Treviño was placed. The vaginal mucosa was injected with a dilute solution of vasopressin until blanching of the tissue was noted. The cervix was circumscribed sharply with the scalpel. A posterior colpotomy was performed sharply with Constantino scissors. The incision was stretched laterally and a weighted speculum was placed into the incision. Anteriorly, the vesicocervical tissues were dissected sharply, and entry into the anterior cul-de-sac was performed sharply. The anterior colpotomy was extended digitally. A right-angle retractor was placed into this incision. Next, the left uterosacral ligament was clamped, transected, and suture ligated with 0 Vicryl suture. It was repeated on the contralateral uterosacral ligament. Next, the cardinal and uterine vessels were clamped, transected, and suture ligated with 0 Vicryl bilaterally. Good tissue hemostasis was obtained. Next, the Toño v- Path vaginal ring retractor was placed in usual fashion into the anterior and posterior cul-de-sacs with use of the introducer device. It was verified digitally that the ring was completely placed intraperitoneally.. The gel cap was placed over the Toño retractor and the patient was placed in 20 degrees of Trendelenburg position. Pressure of 10 mmHg was used for insufflation and pneumoperitoneum. The surgery proceeded laparoscopically where the GL 2ours laparoscopic bipolar energy device was used to divide the broad ligaments bilaterally with good tissue division and hemostasis obtained. The dissection was carried on the left all the way to the level of the uteroovarian ligament. The pedicle was left intact. The procedure was repeated on the contralateral broad ligament and pedicles dividing the vascular structures and the uteroovarian and round ligaments bilaterally. The uterus was removed transvaginally after removal of the gel port cap, The specimen was submitted to pathology. All vascular pedicles were inspected for hemostasis with no bleeding noted. Next, the left ovary contained a 3 cm follicular cyst that was drained with electrocautery transvaginally. Serous fluid was removed. The left fallopian tube was found and it had evidence of prior bilateral tubal ligation; only a small segment of remnant fallopian tube and its fimbriated end were seen. It was grasped with a tom clamps and the left tubal segment was dissected off the mesosalpinx with the bipolar device. Good hemostasis was noted. No bleeding from the left mesosalpinx. The right fallopian tube was high in the pelvis, and only a small fragment of tube was also present. Therefore, it was not attempted to remove the right fallopian tube transvaginally. The right ovary appeared visually normal.. At this point, the Toño vaginal retractor was removed. I then proceeded to close the vaginal cuff. The posterior vaginal cuff was closed with 0 Vicryl in running locking fashion incorporating the posterior peritoneum to obtain hemostasis. A Sullivan culdoplasty was performed approximating the posterior vaginal peritoneum using #1 Vicryl. Following this, the vaginal mucosa was closed in vertical fashion using a Stratafix PDS 0 suture in running vertical fashion. This was closed in continuous running fashion incorporating the ipsilateral cardinal and uterosacral ligaments. The uterosacral ligaments were approximated in the midline and the two sutures of 0 Vicryl tied together. The vaginal cuff was closed completely. The suture was cut. The vagina was packed with iodoform packing. Next, the Treviño was removed. A diagnostic cystoscopy was performed using normal saline to distend the bladder. Bilateral ureteral orifices were noted to efflux urine. The dome and trigone of the bladder were inspected. There was no evidence of suture material, injury, or lesions. The cystoscope was removed. The transurethral Treviño was replaced. The patient was taken out of lithotomy position, awakened, and taken to recovery room in stable condition. INTRAOPERATIVE COMPLICATIONS: None. ESTIMATED BLOOD LOSS: 100 mL. POSTOPERATIVE CONDITION: Stable. SPECIMENS: Uterus and cervix, left fallopian tube. COMPLICATIONS: None. MEDICATIONS: The patient received 2 grams of Ancef prior to skin incision. DO BENEDICT Cheney/SAVANNAH TID: [id number] RECEIPT: [id number] [facility] SYSTEM[facility]
[2024-11-14] MEDS: KETOROLAC TROMETH 30 MG/ML 1ML VIAL IV ONE (11:34)
[2024-11-14] MEDS: HYDROmorphone HCL 2 MG/ML VL/or syr IV PRN ×2 (11:34→15:34)
[2024-11-14] MEDS: LIDOCAINE W/ EPINEPHRINE 1% 20ML VIAL ONE (12:07)
[2024-11-14] MEDS: BUPIVACAINE 0.25% INJ 50ML VIAL ONE (12:07)
[2024-11-14] MEDS: ROCURONIUM 10MG/ML 10ML VIAL IV ONE (12:08)
[2024-11-14] MEDS: HYDROmorphone HCL 2 MG/ML VL/or syr ONE (12:08)
[2024-11-14] MEDS: DOXAPRAM HCL 20 MG/ML 20ML VIAL INJ IV ONE (12:08)
[2024-11-14] MEDS: SUCCINYLCHOLINE CHLORIDE 20 MG/ML 10ML VIAL IV ONE (12:08)
[2024-11-14] MEDS: METHYLENE BLUE 0.5% 5MG/ML 10ml AMP IV ONE (12:08)
[2024-11-14] MEDS: HYDROcodone-ACET 10/325MG TAB PO PRN (18:02)
[2024-11-14] MEDS: LACTATED RINGER'S 1,000 ML IV SCH (18:34)
[2024-11-14 20:41] LABS: Basophils # (auto) 0 10 ^3/uL (0-0.2); Eosinophils # (auto) 0 10 ^3/uL (0-0.8); Hemoglobin 8.8 g/dL (12.2-16.2); Monocytes # (auto) 0.2 10 ^3/uL (0-1.3); Monocytes % (auto) 1.4 % (0.0-12.0)
[2024-11-14 20:44] LABS: Lymphocytes # (auto) 0.7 10 ^3/uL (0.4-5.4); Lymphocytes % (auto) 4.6 % (10.0-50.0); Mean Corpuscular Hemoglobin 18.9 pg (28.0-32.0); Mean Corpuscular Hgb Conc. 30.4 g/dL (32.0-36.0); Mean Corpuscular Volume 62.3 fL (80.0-100.0); Neutrophils # (auto) 13.9 10 ^3/uL (1.6-8.6); Platelet Count (auto) 417 10^3/uL (140-450); Red Blood Cells 4.66 10^6/uL (4.0-5.20); Red Cell Distribution Width 19.8 % (11.8-14.3); White Blood Cell 14.8 10^3/uL (4.4-10.8)
[2024-11-14 20:51] LABS: Hypochromia Marked; Platelet Estimate Adequate
--- NOTE | 2024-11-14 21:58 | DVHPN2 ---
Subjective Progress Notes Subjective POD#0 s/p vNOTES vaginal Hysterectomy , Cystoscopy S: Pain mild to moderate. Currently no pain, resting comfortably. Ambulated today and voiding well w/out romero catheter. Denies fever/chills or N/V Objective PHYSICAL EXAM Physical Exam: Gen: sleeping comfortably Abd: soft, NT , ND Ext soft, neg navdeep sign Vagina: Vaginal packing removed, scant blood staining only, no vaginal bleeding noted. RN Guardian Ad Litem present. Vital Signs and I&O Vital Signs Date Time Temp Pulse Resp B/P (MAP) Pulse Ox O2 Delivery O2 Flow Rate FiO2 11/14/24 17:19 97.6 93 18 123/77 (92) 95 97.6 11/14/24 13:31 Nasal Cannula* 1 24 Intake and Output 11/14/24 07:00 Intake Total 200 ml Balance 200 ml IV Total 200 ml Lab results Laboratory Tests Test 11/10/24 10:43 11/14/24 20:00 Range/Units White Blood Count 6.1 14.8 #H 4.4-10.8 10^3/uL Red Blood Count 4.77 4.66 4.0-5.20 10^6/uL Hemoglobin 9.0 L 8.8 L 12.2-16.2 g/dL Hematocrit 29.9 L 29.0 L 36.0-46.0 % Mean Corpuscular Volume 62.7 L 62.3 L 80.0-100.0 fL Mean Corpuscular Hemoglobin 19.0 L 18.9 L 28.0-32.0 pg Mean Corpuscular Hemoglobin Concent 30.3 L 30.4 L 32.0-36.0 g/dL Red Cell Distribution Width 20.1 H 19.8 H 11.8-14.3 % Platelet Count 430 417 140-450 10^3/uL Mean Platelet Volume 8.5 9.0 6.9-10.8 fL Neutrophils (%) (Auto) 57.9 94.0 H 37.0-80.0 % Lymphocytes (%) (Auto) 27.1 4.6 L 10.0-50.0 % Monocytes (%) (Auto) 11.1 1.4 0.0-12.0 % Eosinophils (%) (Auto) 2.8 0.0 0.0-7.0 % Basophils (%) (Auto) 1.1 0.0 0.0-2.0 % Neutrophils # (Auto) 3.5 13.9 H 1.6-8.6 10 ^3/uL Lymphocytes # (Auto) 1.6 0.7 0.4-5.4 10 ^3/uL Monocytes # (Auto) 0.7 0.2 0-1.3 10 ^3/uL Eosinophils # (Auto) 0.2 0 0-0.8 10 ^3/uL Basophils # (Auto) 0.1 0 0-0.2 10 ^3/uL Nucleated Red Blood Cells 0.0 0.0 % Prothrombin Time 10.7 9.3-11.8 sec Prothrombin Time INR 1.01 0.9-1.15 Activated Partial Thromboplast Time 26.0 24.5-34.5 SEC Urine Color Colorless Yellow Urine Clarity Clear Clear Urine pH 7.5 5.0-9.0 Urine Specific [place] 1.009 1.001-1.035 Urine Protein Negative Negative Urine Ketones Negative Negative Urine Blood Negative Negative /uL Urine Nitrite Negative Negative Urine Bilirubin Negative Negative Urine Urobilinogen Normal Negative mg/dL Urine Leukocyte Esterase Negative Negative /uL Urine RBC None seen 0 - 4 /hpf Urine WBC <1 0 - 5 /hpf Urine Squamous Epithelial Cells Few <5 /hpf Urine Bacteria None seen None Seen /hpf Urine Glucose Normal Normal mg/dL Urine Test Negative Negative Sodium Level 139 136-145 mmol/L Potassium Level 3.5 3.5-5.1 mmol/L Chloride Level 104 98-107 mmol/L Carbon Dioxide Level 29 20-31 mmol/L Anion Gap 6 5-15 Blood Urea Nitrogen 8 L 9-23 mg/dL Creatinine 0.82 0.550-1.02 mg/dL Glomerular Filtration Rate Calc 89 >90 mL/min BUN/Creatinine Ratio 9.8 L 10.0-20.0 Serum Glucose 88 74-106 mg/dL Calcium Level 9.4 8.7-10.4 mg/dL Total Bilirubin 0.3 0.2-1.0 mg/dL Aspartate Amino Transferase (AST) 11 L 13-40 U/L Alanine Aminotransferase (ALT) 13 7-40 U/L Alkaline Phosphatase 125 H 46-116 U/L Total Protein 7.4 5.7-8.2 g/dL Albumin 4.3 3.2-4.8 g/dL Beta HCG, Quantitative 1.6 1.5-4.2 mIU/mL Platelet Estimate Adequate Hypochromasia (manual) Marked Microcytosis Marked Assessment and Plan ASSESSMENT AND PLAN Assessment and Plan POD#0 s/p vNOTES TVH doing well Chronic iron def anemia Plan: IV iron infusion tomorrow a.m. Regular diet Ambulate Pain control Possible D/C tomorrow evening if remains stable and pain controlled. My orders: Orders - CHARLIE RANDLE DO Electrocardigram (11/11/24 15:33) Admit (11/14/24 10:23) To Pacu For Recovery (11/14/24 10:23) Lactated Ringer's (11/14/24 10:30) Ondansetron Hcl (Zofran) (11/14/24 10:30) Hydromorphone Injection (Dilaudid Inject (11/14/24 10:30) Sequential Compression Device (11/14/24 10:23) Oxygen By Nasal Cannula (11/14/24 10:23) D/C Romero (11/14/24 10:23) Ketorolac Injection (Toradol Injection) (11/14/24 10:30) Hydrocodone-Acet 10/325mg Tab (Citronelle 10/ (11/14/24 10:30) Ibuprofen Tablet (Motrin Tablet) (11/14/24 10:30) Regular Diet (11/14/24 Lunch) Magnesium Hydroxide Suspension (Milk Of (11/14/24 22:00) Comprehensive Metabolic Panel (11/15/24 04:00) Ambulate X 4 Daily On Pod #1 (11/14/24 10:30) Complete Blood Count (11/15/24 04:00) Amlodipine Tablet (Norvasc Tablet) (11/15/24 10:00) Iron Ivpb (11/15/24 12:00) Plan discussed with: Patient Date of Service: Nov 14, 2024 Billing Provider: CHARLIE RANDLE DO Common Visit Codes: [id number] INP/OBS CARE(MOD) CHARLIE RANDLE DO Nov 14, 2024 21:58
[2024-11-14] MEDS ORDERED: IBUP-1455 PO (22:00)
[2024-11-14] MEDS ORDERED: FER325T PO (22:00)
[2024-11-14] MEDS ORDERED: HYDR-4798 PO (22:00)
[2024-11-14] MEDS: MILK OF MAGNESIA 30ML SUSP PO SCH (22:00)
[2024-11-15] VITALS (7 sets, daily range): BP systolic 109–135; BP diastolic 62–76; PULSE 79–91; RESP 18–20; TEMP 36.4; O2SAT 9–98
[2024-11-15 07:06] LABS: Basophils # (auto) 0 10 ^3/uL (0-0.2); Eosinophils # (auto) 0 10 ^3/uL (0-0.8); Lymphocytes # (auto) 1.1 10 ^3/uL (0.4-5.4); Monocytes % (auto) 5.7 % (0.0-12.0)
[2024-11-15 07:09] LABS: Hematocrit 24.4 % (36.0-46.0); Hemoglobin 7.5 g/dL (12.2-16.2); Lymphocytes % (auto) 6.5 % (10.0-50.0); Mean Corpuscular Hemoglobin 18.9 pg (28.0-32.0); Mean Corpuscular Hgb Conc. 30.5 g/dL (32.0-36.0); Mean Corpuscular Volume 61.8 fL (80.0-100.0); Neutrophils # (auto) 15.1 10 ^3/uL (1.6-8.6); Neutrophils % (auto) 87.8 % (37.0-80.0); Platelet Count (auto) 367 10^3/uL (140-450); Red Blood Cells 3.95 10^6/uL (4.0-5.20); White Blood Cell 17.2 10^3/uL (4.4-10.8)
--- NOTE | 2024-11-15 07:19 | DVHDS2 ---
Physician Discharge Progress N Final Diagnosis: s/p vNOTES vaginal hysterectomy for menorrhagia w/ anemia Secondary Diagnosis: Uterine leiomyoma Chronic blood loss anemia Operations or Procedures: Operations or Procedures vNOTES TVH Left salpingectomy, cystoscopy Commentary: Commentary Normal post op course VS stable normal bowel/bladder function post op Hb pending Anemia, Rx IV Iron before discharge and PO iron outpatient Condition on Discharge: Stable Disposition: Home Discharge Instructions: Diet: Regular Activity: Light activity Activity comment: Pelvic rest NO SEX, nothing per vagina x 6 weeks No heavy lifting > 20 lbs x 6 weeks Follow Up/Referral: [address] Randle office [employer] Medications: erx NOrco and Ibuprofen Follow Up Care: Discharge Statement: "Patient was advised to return to the ER or call 911 if any headaches, dizziness, shortness of breath, chest pain, abdominal pain, bleeding, fevers, or worsening of medical condition. Patient was counseled about treatment plan, medications, possible side effects, patientverbalized understanding. All questions were answered to the best of my ability. This discharge took greater then 30 minutes in planning, reviewing documentation, counseling the patient, and discussing with other team members." CHARLIE RANDLE DO Nov 15, 2024 07:19
[2024-11-15 07:22] LABS: Alanine Aminotransferase 15 U/L (7-40); Albumin 3.8 g/dL (3.2-4.8); Alkaline Phosphatase 98 U/L (46-116); Anion Gap 5 (5-15); Aspartate Aminotransferase 15 U/L (13-40); BUN/Creatinine Ratio 18.2 (10.0-20.0); Blood Urea Nitrogen 18 mg/dL (9-23); Calcium 9.6 mg/dL (8.7-10.4); Carbon Dioxide 29 mmol/L (20-31); Chloride 102 mmol/L (98-107); Potassium 3.9 mmol/L (3.5-5.1); Sodium 136 mmol/L (136-145); Total Protein 6.5 g/dL (5.7-8.2)
[2024-11-15 07:24] LABS: Bilirubin, Total 0.2 mg/dL (0.2-1.0); Glucose 151 mg/dL (74-106)
[2024-11-15] MEDS ORDERED: IRON SUCROSE COMPLEX 110 ML IV SCH ×2 (07:30→12:00)
[2024-11-15] MEDS: amLODIPine BESYLATE 5 MG TAB PO SCH (10:43)
[2024-11-15] MEDS: IRON SUCROSE COMPLEX 110 ML IV SCH (12:00)
[2024-11-15] MEDS: IBUPROFEN 800 MG TAB PO SCH (14:33)
[2024-11-15] MEDS: KETOROLAC TROMETH 30 MG/ML 1ML VIAL IV PRN (22:47)
[2024-11-16 01:00] VITALS: BP 120/69; PULSE 82; RESP 16; TEMP 97.8; O2SAT 91
[2024-11-16 05:06] VITALS: BP 134/76; PULSE 81; RESP 16; TEMP 97.5; O2SAT 93
[2024-11-16 09:00] VITALS: BP 108/57; PULSE 93; RESP 69; TEMP 98; O2SAT 90
--- NOTE | 2024-11-16 09:34 | DVHPN2 ---
Chief Complaints Patient reports: No new complaints (ambulating , tolerating diet , pain controlled 03/05 , No leg or calf pain, no CP, SOB, NO leg pain), Feels better Nursing reports: No new complaints, No abdominal pain, No chest pain, No dizziness, No cough Objective Vitals Vital Signs Date Time Temp Pulse Resp B/P (MAP) Pulse Ox O2 Delivery O2 Flow Rate FiO2 11/16/24 09:00 98.0 69 108/57 (74) 90 98.0 11/16/24 05:06 81 11/15/24 20:00 Room Air* 0 21 Medications Current Medications Medications (Trade) Dose Ordered Sig/Axel Route PRN Reason Start Time Stop Time Status Last Admin Amlodipine Besylate (Norvasc Tablet) 5 mg DAILY PO 11/15/24 10:00 11/15/24 10:43 Ibuprofen (Motrin Tablet) 800 mg Q8HP PO 11/15/24 14:00 11/16/24 05:28 Iron Sucrose 110 ml @ 110 mls/hr DAILY@1200 IV 11/15/24 12:00 11/19/24 12:59 11/15/24 12:00 General: Normal Lungs: Normal Cardiovascular: Normal Abdominal: Normal (soft + BS , minimal vaginal bleeding/ spotting per RN) Musculoskeletal: Normal Extremities: Normal Skin: Normal Neurological: Normal Studies Laboratory Tests 11/15/24 06:24 Test 11/15/24 06:24 Range/Units Serum Glucose 151 H 74-106 mg/dL Ass/Plan Assessment POD #2 stable improved ; help DC yesterday for pain control Plan See DC summary See Rebeka BOURNE Surgeon's DC orders. DIPESH BIRCH DO Nov 16, 2024 09:34
[2024-11-16 12:52] VITALS: BP 126/75; PULSE 92; RESP 17; TEMP 98.3; O2SAT 94
--- NOTE | 2024-11-16 15:22 | DVH ---
EXAM: XY CHEST XRAY 1 VIEW TECHNIQUE: Single frontal chest radiograph CLINICAL HISTORY: pna COMPARISON: None Findings/Impression: Frontal chest radiograph demonstrates no acute osseous or superficial soft tissue abnormalities. The trachea is midline. The cardiac silhouette and mediastinum are within normal limits. No pneumothorax, pleural effusions, or consolidations.
[2024-11-16 17:00] VITALS: BP 125/83; PULSE 98; RESP 18; TEMP 98.1; O2SAT 96
--- NOTE | 2024-11-16 17:19 | DVH ---
Exam: CT CT AB PEL WO CON-NO ORAL OR IV History: HYSTERECTOMY Comparison Study: None available at time of dictation. TECHNIQUE: Multidetector CT of the abdomen and pelvis without contrast. Axial, coronal and sagittal m ultiplanar reformats were obtained from the axial data set by the technologist. Radiation Dose Information: CT Dose: CTDI volume is 16.96 mGy. Dose-length product is 849.86 mGy*cm FINDINGS: Bibasilar atelectasis/scarring. 3 mm left-sided pleural-based solid nodule. Partially visualized hear t is unremarkable. Liver, spleen, pancreas and adrenal glands unremarkable. The gallbladder is decompressed. 1.1 cm hyperdense right renal interpolar region lesion which may represent a hemorrhagic / proteinace ous cyst. Additional 1.9 cm right renal lower pole cyst is noted. No hydronephrosis or renal calculi bilaterally. Bilateral ureters unremarkable. There is focus of nondependent air within the mildly dis tended urinary bladder. No evidence of urinary bladder wall thickening. Uterus is not definitely visu alized consistent with history of hysterectomy. There is non-loculated density posterior to the urina ry bladder with associated internal areas of hypodensity. Stomach is unremarkable. Small bowel loops unremarkable. Appendix is not definitely visualized. Large amount of fecal material within the colon. No evidence of intraperitoneal free air. No evidence of aortic aneurysm. There is right-sided pelvic sidewall prominent lymph node measuring u p to 1.7 cm in short axis 2.8 x 3 cm nodular lesion of the left upper abdominal mesentery with irregular discontinuous wall bryce cification which may represent a lymph node. Additional 1.6 right 2.2 cm nodular lesion with irregula r peripheral calcification is noted over the right upper abdominal mesentery with a 1.3 by 1.1 cm nod ular lesion with peripheral continuous calcification of the left upper abdominal mesentery which May also represent lymph nodes. 0.7 cm focus of calcification of the left upper abdominal mesentery. Cipriano tional shotty mesenteric lymph nodes are noted. Moderate narrow neck fat and minimal fluidcontaining ventral upper abdominal hernia. Minimal fat stra nding of the bilateral lateral abdomen and pelvis. No destructive osseous lesions are noted. IMPRESSION: Status post hysterectomy with hypodensity with internal densities posterior to the urinary bladder wh ich may represent blood products associated with hysterectomy. Focus of nondependent air within the urinary bladder. Correlate for recent instrumentation. Infectio us process can not be excluded. 1.7 cm in short axis right pelvic wall prominent lymph node with additional upper abdominal periphera lly calcified nodules which may represent lymph nodes, largest measuring up to 0.8 cm in short axis. Correlate for possible neoplastic nodes. No prior CT is available for size comparison. Constipation. 3 mm left lateral lower lobe pleural-based solid nodule. Recommend follow-up per Fleischner criteria and CT chest for further evaluation. Additional findings as above.
[2024-11-16] MEDS ORDERED: METR-344 PO (20:46)
[2024-11-16] MEDS ORDERED: LEVO500T91 PO (20:46)
--- NOTE | 2024-11-16 20:52 | DVHPN2 ---
Subjective Progress Notes Subjective Chart Review Patient wtih minimal vaginal spotting/bleeding s/p CT Scan today with non specific non loculated fluid collection posterior to bladder (? hematoma) WBC trending up, but afebrile H/H decreased post op, but VS stable Dr. Chaudhary saw patient today, I am not in hospital, and related patient is clinically stable and appears well. Objective PHYSICAL EXAM Physical Exam: [place] [address] Ph: [phone] DIAGNOSTIC IMAGING Diagnostic Imaging Report : [id number] Signed PATIENT: RABIA KLINEACCT: [id number] UNIT: [id number] : 1980 LOC: [facility] ROOM / [facility] / A AGE / SEX: 44 / F ADM STATUS: ADM IN SERVICE 1140 ORDERING PHYSICIAN: DIPESH CHAUDHARY DO PROCEDURE(s): ABPL - CT AB PEL WO CON-NO ORAL OR IV REASON: HYSTERECTOMY ORDER NUMBER(s): [id number], ACCESSION NUMBER(s): [id number] Exam: CT CT AB PEL WO CON-NO ORAL OR IV History: HYSTERECTOMY Comparison Study: None available at time of dictation. TECHNIQUE: Multidetector CT of the abdomen and pelvis without contrast. Axial, coronal and sagittal multiplanar reformats were obtained from the axial data set by the technologist. Radiation Dose Information: CT Dose: CTDI volume is 16.96 mGy. Dose-length product is 849.86 mGy*cm FINDINGS: Bibasilar atelectasis/scarring. 3 mm left-sided pleural-based solid nodule. Partially visualized heart is unremarkable. Liver, spleen, pancreas and adrenal glands unremarkable. The gallbladder is decompressed. 1.1 cm hyperdense right renal interpolar region lesion which may represent a hemorrhagic / proteinaceous cyst. Additional 1.9 cm right renal lower pole cyst is noted. No hydronephrosis or renal calculi bilaterally. Bilateral ureters unremarkable. There is focus of nondependent air within the mildly distended urinary bladder. No evidence of urinary bladder wall thickening. Uterus is not definitely visualized consistent with history of hysterectomy. There is non- loculated density posterior to the urinary bladder with associated internal areas of hypodensity. Stomach is unremarkable. Small bowel loops unremarkable. Appendix is not definitely visualized. Large amount of fecal material within the colon. No evidence of intraperitoneal free air. No evidence of aortic aneurysm. There is right-sided pelvic sidewall prominent lymph node measuring up to 1.7 cm in short axis 2.8 x 3 cm nodular lesion of the left upper abdominal mesentery with irregular discontinuous wall calcification which may represent a lymph node. Additional 1.6 right 2.2 cm nodular lesion with irregular peripheral calcification is noted over the right upper abdominal mesentery with a 1.3 by 1.1 cm nodular lesion with peripheral continuous calcification of the left upper abdominal mesentery which May also represent lymph nodes. 0.7 cm focus of calcification of the left upper abdominal mesentery. Additional shotty mesenteric lymph nodes are noted. Moderate narrow neck fat and minimal fluidcontaining ventral upper abdominal hernia. Minimal fat stranding of the bilateral lateral abdomen and pelvis. No destructive osseous lesions are noted. IMPRESSION: Status post hysterectomy with hypodensity with internal densities posterior to the urinary bladder which may represent blood products associated with hysterectomy. Focus of nondependent air within the urinary bladder. Correlate for recent instrumentation. Infectious process can not be excluded. 1.7 cm in short axis right pelvic wall prominent lymph node with additional upper abdominal peripherally calcified nodules which may represent lymph nodes, largest measuring up to 0.8 cm in short axis. Correlate for possible neoplastic nodes. No prior CT is available for size comparison. Constipation. 3 mm left lateral lower lobe pleural-based solid nodule. Recommend follow-up per Fleischner criteria and CT chest for further evaluation. Additional findings as above. ATED BY: LINDSEY BUTT DO DICTATED DATE/TIME: 11/16/24 1716 Vital Signs and I&O Vital Signs Date Time Temp Pulse Resp B/P (MAP) Pulse Ox O2 Delivery O2 Flow Rate FiO2 11/16/24 17:00 98.1 98 18 125/83 (97) 96 98.1 11/16/24 08:00 Room Air* 0 21 Intake and Output 11/16/24 07:00 Intake Total 3660 ml Balance 3660 ml Intake Oral 1860 ml IV Total 1800 ml # Voids 6 Lab results Laboratory Tests Test 11/10/24 10:43 11/14/24 20:00 11/15/24 06:24 Range/Units White Blood Count 6.1 14.8 #H 17.2 H 4.4-10.8 10^3/uL Red Blood Count 4.77 4.66 3.95 L 4.0-5.20 10^6/uL Hemoglobin 9.0 L 8.8 L 7.5 L 12.2-16.2 g/dL Hematocrit 29.9 L 29.0 L 24.4 #L 36.0-46.0 % Mean Corpuscular Volume 62.7 L 62.3 L 61.8 L 80.0-100.0 fL Mean Corpuscular Hemoglobin 19.0 L 18.9 L 18.9 L 28.0-32.0 pg Mean Corpuscular Hemoglobin Concent 30.3 L 30.4 L 30.5 L 32.0-36.0 g/dL Red Cell Distribution Width 20.1 H 19.8 H 20.0 H 11.8-14.3 % Platelet Count 430 417 367 140-450 10^3/uL Mean Platelet Volume 8.5 9.0 9.0 6.9-10.8 fL Neutrophils (%) (Auto) 57.9 94.0 H 87.8 H 37.0-80.0 % Lymphocytes (%) (Auto) 27.1 4.6 L 6.5 L 10.0-50.0 % Monocytes (%) (Auto) 11.1 1.4 5.7 0.0-12.0 % Eosinophils (%) (Auto) 2.8 0.0 0.0 0.0-7.0 % Basophils (%) (Auto) 1.1 0.0 0.0 0.0-2.0 % Neutrophils # (Auto) 3.5 13.9 H 15.1 H 1.6-8.6 10 ^3/uL Lymphocytes # (Auto) 1.6 0.7 1.1 0.4-5.4 10 ^3/uL Monocytes # (Auto) 0.7 0.2 1.0 0-1.3 10 ^3/uL Eosinophils # (Auto) 0.2 0 0 0-0.8 10 ^3/uL Basophils # (Auto) 0.1 0 0 0-0.2 10 ^3/uL Nucleated Red Blood Cells 0.0 0.0 0.0 % Prothrombin Time 10.7 9.3-11.8 sec Prothrombin Time INR 1.01 0.9-1.15 Activated Partial Thromboplast Time 26.0 24.5-34.5 SEC Urine Color Colorless Yellow Urine Clarity Clear Clear Urine pH 7.5 5.0-9.0 Urine Specific [place] 1.009 1.001-1.035 Urine Protein Negative Negative Urine Ketones Negative Negative Urine Blood Negative Negative /uL Urine Nitrite Negative Negative Urine Bilirubin Negative Negative Urine Urobilinogen Normal Negative mg/dL Urine Leukocyte Esterase Negative Negative /uL Urine RBC None seen 0 - 4 /hpf Urine WBC <1 0 - 5 /hpf Urine Squamous Epithelial Cells Few <5 /hpf Urine Bacteria None seen None Seen /hpf Urine Glucose Normal Normal mg/dL Urine Test Negative Negative Sodium Level 139 136 136-145 mmol/L Potassium Level 3.5 3.9 3.5-5.1 mmol/L Chloride Level 104 102 98-107 mmol/L Carbon Dioxide Level 29 29 20-31 mmol/L Anion Gap 6 5 5-15 Blood Urea Nitrogen 8 L 18 9-23 mg/dL Creatinine 0.82 0.99 0.550-1.02 mg/dL Glomerular Filtration Rate Calc 89 71 >90 mL/min BUN/Creatinine Ratio 9.8 L 18.2 10.0-20.0 Serum Glucose 88 151 H 74-106 mg/dL Calcium Level 9.4 9.6 8.7-10.4 mg/dL Total Bilirubin 0.3 0.2 0.2-1.0 mg/dL Aspartate Amino Transferase (AST) 11 L 15 13-40 U/L Alanine Aminotransferase (ALT) 13 15 7-40 U/L Alkaline Phosphatase 125 H 98 46-116 U/L Total Protein 7.4 6.5 5.7-8.2 g/dL Albumin 4.3 3.8 3.2-4.8 g/dL Beta HCG, Quantitative 1.6 1.5-4.2 mIU/mL Platelet Estimate Adequate Hypochromasia (manual) Marked Microcytosis Marked Assessment and Plan ASSESSMENT AND PLAN Assessment and Plan POD#2 s/p vNOTES hysterectomy Possible post op hematoma vs other fluid collection Leukocytosis plan: Continue current care Repeat CBC in a.m Start on oral antibiotics Levaquin/Flagyl for possible pelvic abscess vs hematoma Urine culture pending. I will evaluate patient in the morning personally My orders: Orders - GARIBALDI,CHARLIE G DO Electrocardigram (11/11/24 15:33) Admit (11/14/24 10:23) To Pacu For Recovery (11/14/24 10:23) Lactated Ringer's (11/14/24 10:30) Ondansetron Hcl (Zofran) (11/14/24 10:30) Hydromorphone Injection (Dilaudid Inject (11/14/24 10:30) Sequential Compression Device (11/14/24 10:23) Oxygen By Nasal Cannula (11/14/24 10:23) D/C Treviño (11/14/24 10:23) Ketorolac Injection (Toradol Injection) (11/14/24 10:30) Hydrocodone-Acet 10/325mg Tab ([place] 10/ (11/14/24 10:30) Regular Diet (11/14/24 Lunch) Ambulate X 4 Daily On Pod #1 (11/14/24 10:30) Amlodipine Tablet (Norvasc Tablet) (11/15/24 10:00) Pt Request For Service (11/15/24 07:54) Iron Sucrose Complex (Venofer) (11/15/24 12:00) Ibuprofen Tablet (Motrin Tablet) (11/15/24 14:00) Communication Order (11/15/24 13:14) Discharge (11/16/24 15:00) * Application Architect Consult (11/15/24 ) Metronidazole Tablet (Flagyl Tablet) (11/16/24 20:45) Levofloxacin Tablet (Levaquin Tablet) (11/16/24 20:45) Plan discussed with: Other (Dr. Chaudhary) Date of Service: Nov 16, 2024 Billing Provider: CHARLIE RANDLE DO Common Visit Codes: NOT BILLABLE CHARLIE RANDLE DO Nov 16, 2024 20:52
[2024-11-16 21:00] VITALS: BP 145/89; PULSE 86; RESP 18; TEMP 98; O2SAT 93
[2024-11-16] MEDS: DOCUSATE SOD 100 MG CAP PO SCH (21:09)
[2024-11-16] MEDS: levoFLOXacin 250 MG TAB PO SCH (21:19)
[2024-11-16] MEDS: metroNIDAZOLE 500 MG TAB PO SCH (21:19)
[2024-11-16] MEDS ORDERED: ceFAZolin 1GM/50ML 50 ML IV SCH (22:00)
[2024-11-17 01:00] VITALS: BP 152/99; PULSE 90; RESP 19; TEMP 98.5; O2SAT 91
[2024-11-17 03:06] LABS: Basophils # (auto) 0.1 10 ^3/uL (0-0.2); Hemoglobin 8.3 g/dL (12.2-16.2); Monocytes # (auto) 0.8 10 ^3/uL (0-1.3); Monocytes % (auto) 7.1 % (0.0-12.0); Nucleated Red Blood Cells % 0.3 %; White Blood Cell 11.8 10^3/uL (4.4-10.8)
[2024-11-17 03:07] LABS: Basophils % (auto) 1.2 % (0.0-2.0); Eosinophils # (auto) 0.3 10 ^3/uL (0-0.8); Eosinophils % (auto) 2.9 % (0.0-7.0); Hematocrit 27.8 % (36.0-46.0); Lymphocytes # (auto) 2.1 10 ^3/uL (0.4-5.4); Lymphocytes % (auto) 17.5 % (10.0-50.0); Mean Corpuscular Hemoglobin 18.5 pg (28.0-32.0); Mean Corpuscular Hgb Conc. 29.7 g/dL (32.0-36.0); Mean Corpuscular Volume 62.3 fL (80.0-100.0); Neutrophils # (auto) 8.4 10 ^3/uL (1.6-8.6); Neutrophils % (auto) 71.3 % (37.0-80.0); Platelet Count (auto) 364 10^3/uL (140-450); Red Blood Cells 4.46 10^6/uL (4.0-5.20)
[2024-11-17 03:25] LABS: INR 1.05 (0.9-1.15); Partial Thromboplastin Time 26.6 SEC (24.5-34.5); Prothrombin Time 11.1 sec (9.3-11.8)
[2024-11-17 03:26] LABS: Alanine Aminotransferase 21 U/L (7-40); Albumin 4.2 g/dL (3.2-4.8); Alkaline Phosphatase 101 U/L (46-116); Anion Gap 7 (5-15); Aspartate Aminotransferase 13 U/L (13-40); BUN/Creatinine Ratio 14.7 (10.0-20.0); Blood Urea Nitrogen 11 mg/dL (9-23); Calcium 9.7 mg/dL (8.7-10.4); Carbon Dioxide 30 mmol/L (20-31); Chloride 101 mmol/L (98-107); Glucose 96 mg/dL (74-106); Potassium 3.5 mmol/L (3.5-5.1); Red Cell Distribution Width 20.2 % (11.8-14.3); Sodium 138 mmol/L (136-145)
[2024-11-17 03:27] LABS: Bilirubin, Total 0.3 mg/dL (0.2-1.0); Total Protein 7.2 g/dL (5.7-8.2)
[2024-11-17 05:00] VITALS: BP 130/80; PULSE 80; RESP 20; TEMP 98; O2SAT 93
[2024-11-17] MEDS ORDERED: DOCU-94 PO (07:38)
--- NOTE | 2024-11-17 07:43 | DVHPN2 ---
Subjective Progress Notes Subjective Patient doing better. Pain controlled. Denies Fever, Abd pain, or vaginal bleeding Tolerating regular diet, + flatus but no BM yet. Voiding well w/out difficulty or hematuria. Objective PHYSICAL EXAM Physical Exam: Alert, NAD CV RRR Pulm CTAB Abd Soft, NT, No guarding, BS x 4 normal Ext Soft, NT neg navdeep sign CXR negative for acute process CT SCAN PATIENT: RABIA KLINEACCT: [id number] UNIT: [id number] : 1980 LOC: [facility] ROOM / BED: [facility] / A AGE / SEX: 44 / F ADM STATUS: ADM IN SERVICE 1140 ORDERING PHYSICIAN: DIPESH BIRCH DO PROCEDURE(s): ABPL - CT AB PEL WO CON-NO ORAL OR IV REASON: HYSTERECTOMY ORDER NUMBER(s): [id number], ACCESSION NUMBER(s): [id number] Exam: CT CT AB PEL WO CON-NO ORAL OR IV History: HYSTERECTOMY Comparison Study: None available at time of dictation. TECHNIQUE: Multidetector CT of the abdomen and pelvis without contrast. Axial, coronal and sagittal multiplanar reformats were obtained from the axial data set by the technologist. Radiation Dose Information: CT Dose: CTDI volume is 16.96 mGy. Dose-length product is 849.86 mGy*cm FINDINGS: Bibasilar atelectasis/scarring. 3 mm left-sided pleural-based solid nodule. Partially visualized heart is unremarkable. Liver, spleen, pancreas and adrenal glands unremarkable. The gallbladder is decompressed. 1.1 cm hyperdense right renal interpolar region lesion which may represent a hemorrhagic / proteinaceous cyst. Additional 1.9 cm right renal lower pole cyst is noted. No hydronephrosis or renal calculi bilaterally. Bilateral ureters unremarkable. There is focus of nondependent air within the mildly distended uri nary bladder. No evidence of urinary bladder wall thickening. Uterus is not definitely visualized consistent with history of hysterectomy. There is non- loculated density posterior to the urinary bladder with associated internal areas of hypodensity. Stomach is unremarkable. Small bowel loops unremarkable. Appendix is not definitely visualized. Large amount of fecal material within the colon. No evidence of intraperitoneal free air. No evidence of aortic aneurysm. There is right-sided pelvic sidewall prominent lymph node measuring up to 1.7 cm in short axis 2.8 x 3 cm nodular lesion of the left upper abdominal mesentery with irregular discontinuous wall calcification which may represent a lymph node. Additional 1.6 right 2.2 cm nodular lesion with irregular peripheral calcification is noted over the right upper abdominal mesentery with a 1.3 by 1.1 cm nodular lesion with peripheral continuous calcification of the left upper abdominal mesentery which May also represent lymph nodes. 0.7 cm focus of calcification of the left upper abdominal mesentery. Additional shotty mesenteric lymph nodes are noted. Moderate narrow neck fat and minimal fluidcontaining ventral upper abdominal hernia. Minimal fat stranding of the bilateral lateral abdomen and pelvis. No destructive osseous lesions are noted. IMPRESSION: Status post hysterectomy with hypodensity with internal densities posterior to the urinary bladder which may represent blood products associated with hysterectomy. Focus of nondependent air within the urinary bladder. Correlate for recent instrumentation. Infectious process can not be excluded. 1.7 cm in short axis right pelvic wall prominent lymph node with additional upper abdominal peripherally calcified nodules which may represent lymph nodes, largest measuring up to 0.8 cm in short axis. Correlate for possible neoplastic nodes. No prior CT is available for size comparison. Constipation. 3 mm left lateral lower lobe pleural-based solid nodule. Recommend follow-up per Fleischner criteria and CT chest for further evaluation. Additional findings as above. ATED BY: LINDSEY BUTT DO DICTATED DATE/TIME: 11/16/24 1716 Vital Signs and I&O Vital Signs Date Time Temp Pulse Resp B/P (MAP) Pulse Ox O2 Delivery O2 Flow Rate FiO2 11/17/24 05:00 98.0 80 20 130/80 (97) 93 98.0 11/16/24 20:00 Room Air* 0 21 Intake and Output 11/17/24 07:00 Intake Total 1190 ml Balance 1190 ml Intake Oral 1080 ml IV Total 110 ml # Voids 7 # Bowel Movements 1 Lab results Laboratory Tests Test 11/10/24 10:43 11/14/24 20:00 11/15/24 06:24 11/17/24 02:40 Range/Units White Blood Count 6.1 14.8 #H 17.2 H 11.8 #H 4.4-10.8 10^3/uL Red Blood Count 4.77 4.66 3.95 L 4.46 4.0-5.20 10^6/uL Hemoglobin 9.0 L 8.8 L 7.5 L 8.3 L 12.2-16.2 g/dL Hematocrit 29.9 L 29.0 L 24.4 #L 27.8 #L 36.0-46.0 % Mean Corpuscular Volume 62.7 L 62.3 L 61.8 L 62.3 L 80.0-100.0 fL Mean Corpuscular Hemoglobin 19.0 L 18.9 L 18.9 L 18.5 L 28.0-32.0 pg Mean Corpuscular Hemoglobin Concent 30.3 L 30.4 L 30.5 L 29.7 L 32.0-36.0 g/dL Red Cell Distribution Width 20.1 H 19.8 H 20.0 H 20.2 H 11.8-14.3 % Platelet Count 430 417 367 364 140-450 10^3/uL Mean Platelet Volume 8.5 9.0 9.0 8.9 6.9-10.8 fL Neutrophils (%) (Auto) 57.9 94.0 H 87.8 H 71.3 37.0-80.0 % Lymphocytes (%) (Auto) 27.1 4.6 L 6.5 L 17.5 10.0-50.0 % Monocytes (%) (Auto) 11.1 1.4 5.7 7.1 0.0-12.0 % Eosinophils (%) (Auto) 2.8 0.0 0.0 2.9 0.0-7.0 % Basophils (%) (Auto) 1.1 0.0 0.0 1.2 0.0-2.0 % Neutrophils # (Auto) 3.5 13.9 H 15.1 H 8.4 1.6-8.6 10 ^3/uL Lymphocytes # (Auto) 1.6 0.7 1.1 2.1 0.4-5.4 10 ^3/uL Monocytes # (Auto) 0.7 0.2 1.0 0.8 0-1.3 10 ^3/uL Eosinophils # (Auto) 0.2 0 0 0.3 0-0.8 10 ^3/uL Basophils # (Auto) 0.1 0 0 0.1 0-0.2 10 ^3/uL Nucleated Red Blood Cells 0.0 0.0 0.0 0.3 % Prothrombin Time 10.7 11.1 9.3-11.8 sec Prothrombin Time INR 1.01 1.05 0.9-1.15 Activated Partial Thromboplast Time 26.0 26.6 24.5-34.5 SEC Urine Color Colorless Yellow Urine Clarity Clear Clear Urine pH 7.5 5.0-9.0 Urine Specific [place] 1.009 1.001-1.035 Urine Protein Negative Negative Urine Ketones Negative Negative Urine Blood Negative Negative /uL Urine Nitrite Negative Negative Urine Bilirubin Negative Negative Urine Urobilinogen Normal Negative mg/dL Urine Leukocyte Esterase Negative Negative /uL Urine RBC None seen 0 - 4 /hpf Urine WBC <1 0 - 5 /hpf Urine Squamous Epithelial Cells Few <5 /hpf Urine Bacteria None seen None Seen /hpf Urine Glucose Normal Normal mg/dL Urine Test Negative Negative Sodium Level 139 136 138 136-145 mmol/L Potassium Level 3.5 3.9 3.5 3.5-5.1 mmol/L Chloride Level 104 102 101 98-107 mmol/L Carbon Dioxide Level 29 29 30 20-31 mmol/L Anion Gap 6 5 7 5-15 Blood Urea Nitrogen 8 L 18 11 9-23 mg/dL Creatinine 0.82 0.99 0.75 0.550-1.02 mg/dL Glomerular Filtration Rate Calc 89 71 99 >90 mL/min BUN/Creatinine Ratio 9.8 L 18.2 14.7 10.0-20.0 Serum Glucose 88 151 H 96 74-106 mg/dL Calcium Level 9.4 9.6 9.7 8.7-10.4 mg/dL Total Bilirubin 0.3 0.2 0.3 0.2-1.0 mg/dL Aspartate Amino Transferase (AST) 11 L 15 13 13-40 U/L Alanine Aminotransferase (ALT) 13 15 21 7-40 U/L Alkaline Phosphatase 125 H 98 101 46-116 U/L Total Protein 7.4 6.5 7.2 5.7-8.2 g/dL Albumin 4.3 3.8 4.2 3.2-4.8 g/dL Beta HCG, Quantitative 1.6 1.5-4.2 mIU/mL Platelet Estimate Adequate Hypochromasia (manual) Marked Microcytosis Marked Assessment and Plan ASSESSMENT AND PLAN Assessment and Plan POD#3 s/p vNOTES Hysterectomy doing well H/H stable post op WBC trending down, no clinical evidence of infection Plan: D/C home today w/ NORCO/Ibuprofen PRN for pain IRON TID for chronic blood loss anemia Colace stool softener Rx Levaquin/Flagyl PO x 7 days possible small hematoma, prophylaxis prevent cuff cellulitis/pelvic abscess - F/U w/ me in clinic on 11/25/24 for pelvic exam and repeat LABS - Notify MD or go to ER for any warning signs, fever, severe N/V or heavy vaginal bleeding. Pt verbalized understanding - Pelvic rest 6-8 wk discussed. My orders: Orders - CHARLIE RANDLE DO Electrocardigram (11/11/24 15:33) Admit (11/14/24 10:23) To Pacu For Recovery (11/14/24 10:23) Lactated Ringer's (11/14/24 10:30) Ondansetron Hcl (Zofran) (11/14/24 10:30) Hydromorphone Injection (Dilaudid Inject (11/14/24 10:30) Sequential Compression Device (11/14/24 10:23) Oxygen By Nasal Cannula (11/14/24 10:23) D/C Treviño (11/14/24 10:23) Hydrocodone-Acet 10/325mg Tab ([place] 10/ (11/14/24 10:30) Ambulate X 4 Daily On Pod #1 (11/14/24 10:30) Amlodipine Tablet (Norvasc Tablet) (11/15/24 10:00) Pt Request For Service (11/15/24 07:54) Iron Sucrose Complex (Venofer) (11/15/24 12:00) Ibuprofen Tablet (Motrin Tablet) (11/15/24 14:00) Communication Order (11/15/24 13:14) * Civil Drafter Consult (11/15/24 ) Metronidazole Tablet (Flagyl Tablet) (11/16/24 20:45) Levofloxacin Tablet (Levaquin Tablet) (11/16/24 20:45) Npo After Midnight (11/17/24 Breakfast) Discharge (11/17/24 11:00) Plan discussed with: Patient, Other (RN) Date of Service: Nov 17, 2024 Billing Provider: CHARLIE RANDLE DO Common Visit Codes: [id number]/OBS DISCH DAY >30min CHARLIE RANDLE DO Nov 17, 2024 07:43
[2024-11-17 08:00] VITALS: PULSE 83; RESP 18; O2SAT 96
[2024-11-17 08:28] VITALS: BP 123/75; PULSE 83; RESP 18; TEMP 97.7; O2SAT 91
[2024-11-17 12:35] VITALS: BP 116/72; PULSE 77; RESP 14; TEMP 97.8; O2SAT 91
== END 2024-11-17 13:31 | disposition home or self-care (01) | DRG 742 ==
LOC: SUR 05:55 → OVERFLOW 10:23 → WEST WING 12:52
PROVIDERS: ADMIT Obstetrics & Gynecology; ATTEND Obstetrics & Gynecology
PROC: 0UB68ZZ Excision of Left Fallopian Tube, Via Natural or Artificial Opening Endoscopic (ICD-10-PCS; 2024-11-14)
PROC: 0U9 Female Reproductive System, Drainage (ICD-10-PCS; 2024-11-14)
PROC: 0UT98ZZ Resection of Uterus, Via Natural or Artificial Opening Endoscopic (ICD-10-PCS; principal; 2024-11-14 07:35)
DX: D25.1 Intramural leiomyoma of uterus (principal); I69.351 Hemiplegia and hemiparesis following cerebral infarction affecting right dominant side; Z68.41 Body mass index [BMI] 40.0-44.9, adult; R00.0 Tachycardia, unspecified; D50.0 Iron deficiency anemia secondary to blood loss (chronic); D72.829 Elevated white blood cell count, unspecified; E66.01 Morbid (severe) obesity due to excess calories; I10 Essential (primary) hypertension; G40.909 Epilepsy, unspecified, not intractable, without status epilepticus; N94.6 Dysmenorrhea, unspecified; N92.0 Excessive and frequent menstruation with regular cycle; K59.00 Constipation, unspecified; N83.02 Follicular cyst of left ovary; R10.2 Pelvic and perineal pain; Z30.2 Encounter for sterilization; Z98.51 Tubal ligation status
CPT/HCPCS: 36415; 71045; 74176; 80053; 81001; 81025; 84702; 85025; 85610; 85730; 86850; 86900; 86901; 87040; 87086; 97110; 97116; 97163; 97530; G0378; J0330; J1756; J1885; J2250; J2405; J2704; J3490

== ENCOUNTER → 2024-11-25 | Outpatient (CLI) | payer OTHER ==
[~2024-11-25] MED LIST changes: +DOCU-94 PO; +FER325T PO; +HYDR-4798 PO; +IBUP-1455 PO; +LEVO500T91 PO; +METR-344 PO
[2024-11-25 11:00] LABS: Alanine Aminotransferase 12 U/L (7-40); Alkaline Phosphatase 110 U/L (46-116); Anion Gap 5 (5-15); BUN/Creatinine Ratio 14.9 (10.0-20.0); Blood Urea Nitrogen 14 mg/dL (9-23); Calcium 9.9 mg/dL (8.7-10.4); Carbon Dioxide 30 mmol/L (20-31); Chloride 106 mmol/L (98-107); Sodium 141 mmol/L (136-145); Total Protein 6.8 g/dL (5.7-8.2)
[2024-11-25 11:07] LABS: Glucose 112 mg/dL (74-106)
[2024-11-25 11:08] LABS: Aspartate Aminotransferase 11 U/L (13-40); Bilirubin, Total 0.2 mg/dL (0.2-1.0)
[2024-11-25 11:09] LABS: Basophils # (auto) 0 10 ^3/uL (0-0.2); Basophils % (auto) 0.5 % (0.0-2.0); Eosinophils # (auto) 0.4 10 ^3/uL (0-0.8); Hematocrit 30.5 % (36.0-46.0); Monocytes # (auto) 0.7 10 ^3/uL (0-1.3); White Blood Cell 9.1 10^3/uL (4.4-10.8)
[2024-11-25 11:12] LABS: Eosinophils % (auto) 4.5 % (0.0-7.0); Hemoglobin 9.4 g/dL (12.2-16.2); Lymphocytes # (auto) 2.1 10 ^3/uL (0.4-5.4); Lymphocytes % (auto) 22.7 % (10.0-50.0); Mean Corpuscular Hemoglobin 20.3 pg (28.0-32.0); Mean Corpuscular Hgb Conc. 30.9 g/dL (32.0-36.0); Mean Corpuscular Volume 65.8 fL (80.0-100.0); Monocytes % (auto) 8.1 % (0.0-12.0); Neutrophils # (auto) 5.8 10 ^3/uL (1.6-8.6); Neutrophils % (auto) 64.2 % (37.0-80.0); Platelet Count (auto) 392 10^3/uL (140-450); Red Blood Cells 4.64 10^6/uL (4.0-5.20)
[2024-11-25 11:32] LABS: Red Cell Distribution Width 21.8 % (11.8-14.3)
[2024-11-25 14:17] LABS: Anisocytosis Slight; Hypochromia Moderate
[2024-11-25 14:18] LABS: Large Platelets FEW; Platelet Estimate Adequa
[2024-11-25 14:19] LABS: Ovalocytes MODERATE
[2024-11-25 14:21] LABS: Giant Platelets Few; Stomatocytes Few
== END | disposition home or self-care (01) ==
LOC: LAB 09:34
PROVIDERS: ATTEND Obstetrics & Gynecology
DX: Z01.419 Encounter for gynecological examination (general) (routine) without abnormal findings (principal)
CPT/HCPCS: 36415; 80053; 85025

== ENCOUNTER 2024-12-02 12:17 | Emergency (ER) | payer OTHER ==
[~2024-12-02] VITALS: Ht 165.1 cm; Wt 107.6 kg
[2024-12-02 14:56] VITALS: BP 149/87; PULSE 99; RESP 16; TEMP 97.3; O2SAT 97
--- NOTE | 2024-12-02 15:24 | ED.PDOC ---
Back pain HPI HPI Comments 44 year old with right upper scapula pain x 3 days Woke up with symptoms and been present since No trauma or injury Denies CP/SOB Chief Complaint: Back Pain Time Seen by MD: 14:48 Primary Care Provider: unknown Reviewed Notes: Nurses Notes, Medications, Allergies Allergies: Coded Allergies: Lisinopril (Unverified Allergy, Severe, facial edema, 08/25/24) Home Meds Active Scripts Amoxicillin & Pot Clavulanate (AUGMENTIN TABLET) 875 Mg Tb, 875 MG PO BID for 7 Days, #14 TAB 0 Refills Prov:SHIRAZ SPAULDING GOLF CADDIE 12/02/24 Docusate Sodium (Colace) 100 Mg Cap, 1 CAP PO BID, #30 CAP Prov:CHARLIE RANDLE DO 11/17/24 Metronidazole (Flagyl) 500 Mg Tab, 500 MG PO TID for 7 Days, #21 TAB Prov:CHARLIE RANDLE DO 11/16/24 Levofloxacin Hemihydrate (LEVAQUIN 500 MG) 500 Mg Tab, 500 MG PO DAILY for 10 Days, #10 TAB Prov:CHARLIE RANDLE DO 11/16/24 Ferrous Sulfate (Ferrous Sulfate) 325 Mg Tab, 325 MG PO TID, #60 TAB Prov:CHARLIE RANDLE DO 11/14/24 Ibuprofen Micronized (Ibuprofen) 800 Mg Tab, 800 MG PO Q8HP PRN, #40 TAB Prov:CHARLIE RANDLE DO 11/14/24 Hydrocodone-Acetaminophen (Hydrocodone Bitartrate/AC 10-325 mg) 1 Tab Tab, 1 TAB PO Q6HP PRN for 5 Days, #20 TAB Prov:CHARLIE RANDLE DO 11/14/24 Reported Medications Amlodipine Besylate (Amlodipine Besylate) 10 Mg Tab, 10 MG PO DAILY, TAB 08/25/24 Atorvastatin Calcium (Lipitor) 40 Mg Tab, 40 MG PO DAILY, TAB 08/25/24 Mode of Arrival: Ambulatory Past Medical History PAST MEDICAL HISTORY: High Lipids, HTN, Seizures Surgical History: Tubal Ligation VIOLENT CRIMES DETECTIVE History: No Pertinent VIOLENT CRIMES DETECTIVE History Family History Family History: Reviewed,noncontributory to illness Social History Smoker: Non-Smoker Alcohol: Occasionally Drugs: Denies Drug Use Lives In: Home All Other Systems: Reviewed and Negative (per hpi) Physical Exam General Appearance: No Apparent Distress, Normal HEENT: Normal ENT Inspection, Pharynx Normal, TMs Normal Neck: Full Range of Motion, Non-Tender, Normal, Normal Inspection Respiratory: Chest Non-Tender, Lungs Clear, No Accessory Muscle Use, No Respiratory Distress, Normal Breath Sounds Cardiovascular: No Edema, No JVD, No Murmur, No Gallop, Normal Peripheral Pulses, Regular Rate/Rhythm Breast Exam: Deferred Gastrointestinal: No Organomegaly, Non Tender, No Pulsatile Mass, Normal Bowel Sounds, Soft Genitalia: Deferred Pelvic: Deferred Rectal: Deferred Extremities: No calf tenderness, Normal capillary refill, Normal inspection, Normal range of motion, Non-tender, No pedal edema Musculoskeletal : Apperance: Normal Neurologic: Alert, wire bound box machine helper II-XII nml as Tested, No Motor Deficits, Normal Affect, Normal Mood, No Sensory Deficits Cerebellar Function: Normal Reflexes: Normal Skin: Dry, Normal Color, Warm Lymphatic: No Adenopathy Was a procedure done? Was a procedure done?: No Back Pain Differential Dx Differential Diagnosis: Fracture, Musculoskeletal Pain, Strain, Other X-Ray, Labs, Meds, VS Vital Signs Date Time Temp Pulse Resp B/P (MAP) Pulse Ox O2 Delivery O2 Flow Rate FiO2 12/02/24 14:56 97.3 99 16 149/87 (107) 97 97.3 12/02/24 14:56 99 16 97 Room Air 12/02/24 12:37 97.3 94 16 149/87 (107) 97 X-Ray, Labs, Meds, VS Comment On reevaluation, patient had symptomatic improvement. Patient is stable for discharge at this time. Test results and diagnostic imaging interpreted. All diagnostic findings, discharge care, education and instructions provided Follow-up with PCP in 2 to 3 days Patient verbalized understanding and agreed to treatment plan Vital signs stable, afebrile, no acute distress noted Patient ambulatory with strong steady gait Advised to return precautions for any new or worsening symptoms, return to ER immediately for re-evaluation Patient is aware that the purpose of this visit was for an acute medical emergency requiring emergent stabilization. Chronic conditions, including malignancies have not been ruled out. Patient is instructed to follow up with PCP as directed and discharge instructions for continued care and workup. If unable to arrange follow-up, patient is to return to the emergency department for reassessment. Patient (parent or legal guardian if applicable) was given verbal and written discharge instructions and acknowledges understanding. Time of 1ST Reevaluation: 16:00 Reevaluation 1ST: Improved Patient Education/Counseling: Diagnosis, Treatment Family Education/Counseling: Diagnosis, Treatment Departure 1 Departure Time of Disposition: 16:07 Impression: Primary Impression: Infiltrate of lung present on chest x-ray Disposition: HOME / SELF CARE / HOMELESS Condition: Stable e-Prescriptions Amoxicillin & Pot Clavulanate (AUGMENTIN TABLET) 875 Mg Tb 875 MG PO BID for 7 Days, #14 TAB 0 Refills Prov: SHIRAZ SPAULDING GOLF CADDIE 12/02/24 Discharged With: Self Critical Care Note Critical Care Time?: No Stability Stability form required: No Heart Score Heart Score: Heart Score Response (Comments) Value History N/A 0 EKG N/A 0 Age N/A 0 Risk Factors N/A 0 Troponin N/A 0 Total 0 SHIRAZ SPAULDING NP Dec 02, 2024 15:24
--- NOTE | 2024-12-02 15:45 | DVH ---
XY CHEST TWO VIEWS ROUTINE CLINICAL HISTORY: r/o serious pathology COMPARISON: None TECHNIQUE: Frontal and lateral view of the chest was obtained FINDINGS: Lines and Tubes: None Lungs: No focal consolidation. Left basilar curvilinear opacities. Pleura: No effusion. No pneumothorax. Cardiomediastinal contours: Unremarkable Bones: No acute osseous abnormality. IMPRESSION: 1. Left basilar probable atelectasis, less likely infiltrate. HS:Y
[2024-12-02] MEDS ORDERED: AUG875T PO (16:08)
== END 2024-12-02 16:25 | disposition home or self-care (01) ==
LOC: ER 12:17
DX: R91.8 Other nonspecific abnormal finding of lung field (principal); E78.5 Hyperlipidemia, unspecified; I10 Essential (primary) hypertension; Z98.890 Other specified postprocedural states; Z88.8 Allergy status to other drugs, medicaments and biological substances; Z79.899 Other long term (current) drug therapy
CPT/HCPCS: 71046

== ENCOUNTER → 2024-12-26 | Outpatient (CLI) | payer OTHER ==
[~2024-12-26] MED LIST changes: +AUG875T PO
[2024-12-26 10:18] LABS: Eosinophils # (auto) 0.2 10 ^3/uL (0-0.8); Lymphocytes # (auto) 1.7 10 ^3/uL (0.4-5.4); Monocytes # (auto) 0.4 10 ^3/uL (0-1.3); Neutrophils # (auto) 3.7 10 ^3/uL (1.6-8.6)
[2024-12-26 10:21] LABS: Basophils # (auto) 0 10 ^3/uL (0-0.2); Basophils % (auto) 0.6 % (0.0-2.0); Eosinophils % (auto) 3.2 % (0.0-7.0); Lymphocytes % (auto) 28.7 % (10.0-50.0); Mean Corpuscular Hemoglobin 22.7 pg (28.0-32.0); Mean Corpuscular Hgb Conc. 32.5 g/dL (32.0-36.0); Monocytes % (auto) 6.9 % (0.0-12.0); Neutrophils % (auto) 60.6 % (37.0-80.0); Platelet Count (auto) 381 10^3/uL (140-450); Red Blood Cells 4.85 10^6/uL (4.0-5.20)
[2024-12-26 10:41] LABS: Alanine Aminotransferase 16 U/L (7-40); Albumin 4.5 g/dL (3.2-4.8); Alkaline Phosphatase 160 U/L (46-116); Anion Gap 6 (5-15); Aspartate Aminotransferase 10 U/L (13-40); BUN/Creatinine Ratio 15.7 (10.0-20.0); Blood Urea Nitrogen 13 mg/dL (9-23); Calcium 9.6 mg/dL (8.7-10.4); Carbon Dioxide 29 mmol/L (20-31); Chloride 103 mmol/L (98-107); Glucose 111 mg/dL (74-106); Potassium 3.6 mmol/L (3.5-5.1); Sodium 138 mmol/L (136-145)
[2024-12-26 10:42] LABS: Total Protein 7.4 g/dL (5.7-8.2)
[2024-12-26 10:43] LABS: Bilirubin, Total 0.2 mg/dL (0.2-1.0)
[2024-12-26 11:05] LABS: Red Cell Distribution Width 25.7 % (11.8-14.3)
[2024-12-26 11:28] LABS: Folate (Folic Acid) 9.56 ng/mL (>5.38)
[2024-12-26 11:29] LABS: Ferritin 5.6 ng/mL (10-291); Platelet Estimate Adequate
[2024-12-26 11:30] LABS: Anisocytosis Slight
[2024-12-26 11:31] LABS: Hypochromia Moderate
== END | disposition home or self-care (01) ==
LOC: LAB 09:49
DX: D64.9 Anemia, unspecified (principal)
CPT/HCPCS: 36415; 80053; 82607; 82728; 82746; 85025

== ENCOUNTER 2025-03-10 17:31 | Inpatient (IN) | payer OTHER ==
[~2025-03-10] VITALS: Ht 165.1 cm; Wt 108.6 kg
[2025-03-10 18:23] LABS: Basophils # (auto) 0 10 ^3/uL (0-0.2); Hemoglobin 11.3 g/dL (12.2-16.2); Monocytes # (auto) 0.5 10 ^3/uL (0-1.3); Red Cell Distribution Width 19.3 % (11.8-14.3); White Blood Cell 7.7 10^3/uL (4.4-10.8)
[2025-03-10 18:26] LABS: Basophils % (auto) 0.4 % (0.0-2.0); Eosinophils # (auto) 0.2 10 ^3/uL (0-0.8); Eosinophils % (auto) 2.1 % (0.0-7.0); Hematocrit 34.7 % (36.0-46.0); Lymphocytes # (auto) 1.8 10 ^3/uL (0.4-5.4); Lymphocytes % (auto) 22.9 % (10.0-50.0); Mean Corpuscular Hemoglobin 24.5 pg (28.0-32.0); Mean Corpuscular Hgb Conc. 32.6 g/dL (32.0-36.0); Mean Corpuscular Volume 75.1 fL (80.0-100.0); Monocytes % (auto) 6.8 % (0.0-12.0); Neutrophils # (auto) 5.2 10 ^3/uL (1.6-8.6); Neutrophils % (auto) 67.8 % (37.0-80.0); Platelet Count (auto) 340 10^3/uL (140-450); Red Blood Cells 4.62 10^6/uL (4.0-5.20)
[2025-03-10 18:50] LABS: Partial Thromboplastin Time 26.4 SEC (24.5-34.5); Prothrombin Time 10.6 sec (9.3-11.8)
[2025-03-10 18:55] LABS: Urine Bacteria None Seen /hpf (None Seen)
[2025-03-10 18:58] LABS: Alanine Aminotransferase 27 U/L (7-40); Albumin 4.3 g/dL (3.2-4.8); Alkaline Phosphatase 114 U/L (46-116); Anion Gap 6 (5-15); Aspartate Aminotransferase 21 U/L (13-40); Blood Urea Nitrogen 13 mg/dL (9-23); Calcium 9.8 mg/dL (8.7-10.4); Carbon Dioxide 29 mmol/L (20-31); Chloride 103 mmol/L (98-107); Glucose 79 mg/dL (74-106); Lipase 32 U/L (12-53); Sodium 138 mmol/L (136-145); Total Protein 7.2 g/dL (5.7-8.2)
[2025-03-10 19:05] LABS: Bilirubin, Total 0.3 mg/dL (0.2-1.0)
[2025-03-10 19:07] LABS: Urine Blood Negative /uL (Negative); Urine Clarity Clear (Clear); Urine Color Colorless (Yellow); Urine Protein, UAD Negative (Negative); Urine Specific Gravity 1.014 (1.001-1.035); Urine Squamous Epithelial Cell FEW /hpf (<5); Urine Urobilinogen Normal (Negative); Urine WBC 2 /HPF (0-5)
--- NOTE | 2025-03-10 19:13 | ED.PDOC ---
GI ASSESSMENT HPI Comments HPI: Poor Historian. 45-year-old female presents to emergency department for onset of right upper quadrant pain started 9:00 a.m. this morning with the associated nausea. The patient states having some constipation as well. Patient states the pain is similar to previous episode of pancreatitis. Later in the ED course while the patient was still in the ER she stated that she developed a right facial numbness and tingling. Stroke protocol was activated. Past Medical History: Brain tumor, hypertension, pancreatitis, right facial droop Past Surgical History: Hysterectomy, brain tumor resection REVIEW OF SYSTEMS: CONSTITUTIONAL: Denies acute: fever, diaphoresis, chills, generalized weakness. HEAD: Denies acute: headache, photophobia Eyes: Denies acute: Double vision, vision loss, eye pain, eye discharge. EARS: Denies acute: tinnitus, hearing loss, ear discharge, ear pain, THROAT: Denies acute: sore throat, swelling, difficulty swallowing , pain with swallowing, change in voice. NECK: Denies acute: neck pain, neck swelling, stiff neck. HEART: Denies acute : chest pain, palpitations, LUNGS: Denies acute: SOB, wheezing, cough, hemoptysis ABDOMEN: Denies acute: , Nausea, Vomiting, diarrhea, melena , hematemesis, hematochezia SKIN: Denies acute: rash, redness, lesions, itchiness. EXTREMITIES: Denies acute: calf pain, weakness, denies pain in extremity. Denies acute: Low back pain. Neuro: Denies acute: focal neurological deficit, motor or sensory focal neurological deficit, tremors, seizure like activity, confusion, dizziness, change in mental status, loss of bowel or bladder function, cauda equina like symptoms. : Denies acute: dysuria, hematuria, flank pain, increase in urinary frequency. PSYCH: Denies acute: hallucination, suicidal ideation, homicidal ideation. FEMALE: Denies acute: abnormal vaginal bleeding, foul odor, unusual discharge. PHYSICAL EXAM: General: ----mild----acute distress, awake and alert. Head: normocephalic, atraumatic. Neck: supple, trachea is midline, no swelling. Throat: Normal phonation. Eyes:, no erythema, no purulent discharge, no proptosis, no icterus. Heart: regular rate, regular rhythm, no significant murmur appreciated. Lungs: no apparent respiratory distress, Able to speak in full sentences. No wheezing, no rhonchi, no crackles. No stridors Clear to auscultation bilaterally. Abdomen: Right upper quadrant tender to palpation, non distended, soft, no guarding, no rebound, + bowel sounds. Obese Neuro: Awake, Alert, oriented to name, self, situation, follows commands GCS=15. Speech is normal. Skin: no petechia, no purpura, no cyanosis, non-pale, not jaundice. Lower extremities: --no - Pitting edema no deformity, no focal swelling, no calf TTP. Makes eye contact. moves all four extremities. Face: Chronic right facial droop Ambulating in the ED independently. PERRLA, EOM-I CN 2-12 are grossly intact, No nystagmus. No nuchal rigidity, Kernig's sign, Brudzinski's sign, no meningeal signs. ED COURSE: Chief Complaint: Abdominal Pain Time Seen by MD: 17:33 Primary Care Provider: unknown Reviewed Notes: Nurses Notes, Allergies Allergies: Coded Allergies: Lisinopril (Unverified Allergy, Severe, facial edema, 08/25/24) Home Meds Active Scripts Amoxicillin & Pot Clavulanate (AUGMENTIN TABLET) 875 Mg Tb, 875 MG PO BID for 7 Days, #14 TAB 0 Refills Prov:SHIRAZ SPAULDING MOLD STRIPPER 12/02/24 Docusate Sodium (Colace) 100 Mg Cap, 1 CAP PO BID, #30 CAP Prov:CHARLIE RANDLE DO 11/17/24 Metronidazole (Flagyl) 500 Mg Tab, 500 MG PO TID for 7 Days, #21 TAB Prov:CHARLIE RANDLE DO 11/16/24 Levofloxacin Hemihydrate (LEVAQUIN 500 MG) 500 Mg Tab, 500 MG PO DAILY for 10 Days, #10 TAB Prov:CHARLIE RANDLE DO 11/16/24 Ferrous Sulfate (Ferrous Sulfate) 325 Mg Tab, 325 MG PO TID, #60 TAB Prov:CHARLIE RANDLE DO 11/14/24 Ibuprofen Micronized (Ibuprofen) 800 Mg Tab, 800 MG PO Q8HP PRN, #40 TAB Prov:CHARLIE RANDLE DO 11/14/24 Hydrocodone-Acetaminophen (Hydrocodone Bitartrate/AC 10-325 mg) 1 Tab Tab, 1 TAB PO Q6HP PRN for 5 Days, #20 TAB Prov:CHARLIE RANDLE DO 11/14/24 Reported Medications Amlodipine Besylate (Amlodipine Besylate) 10 Mg Tab, 10 MG PO DAILY, TAB 08/25/24 Atorvastatin Calcium (Lipitor) 40 Mg Tab, 40 MG PO DAILY, TAB 08/25/24 Information Source: Patient Mode of Arrival: Ambulatory Past Medical History PAST MEDICAL HISTORY: High Lipids, HTN, Seizures Surgical History: Tubal Ligation 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 Was a procedure done?: No GI differential Dx Differential Diagnosis: Other (DDX include Diverticulitis, colitis, gastroenteritis, acute abdomen, SBO, enteritis, constipation, volvulus, appendicitis, Gallbladder disease, choledocolithiasis, ascending cholangitis, pancreatitis, intraAbdominal mass/neoplasm, hepatitis, UTI, pylonephritis, kidney stone, aneurysm, dissection, Inflammatory bowel disease, gastroparesis, ischemic bowel, ovarian torsion, ovarian cyst/mass, tubo-ovarian abscess, , ectopic , PID, STD.) X-Ray, Labs, Meds, VS Vital Signs Date Time Temp Pulse Resp B/P (MAP) Pulse Ox O2 Delivery O2 Flow Rate FiO2 03/10/25 21:00 81 16 99 Room Air* 0 21 03/10/25 20:57 81 16 156/86 (109) 99 03/10/25 19:05 78 16 178/107 (130) 98 03/10/25 17:56 98.5 82 16 175/104 (127) 96 98.5 Lab Test 03/10/25 22:00 03/10/25 18:42 03/10/25 18:09 Range/Units Troponin I High Sensitivity < 3 L < 3 L </=34 ng/L Urine Color Colorless Yellow Urine Clarity Clear Clear Urine pH 7.0 5.0-9.0 Urine Specific Henniker 1.014 1.001-1.035 Urine Protein Negative Negative Urine Ketones Negative Negative Urine Blood Negative Negative /uL Urine Nitrite Negative Negative Urine Bilirubin Negative Negative Urine Urobilinogen Normal Negative mg/dL Urine Leukocyte Esterase 1+ Negative /uL Urine RBC 1 0 - 4 /hpf Urine Microscopic WBC 2 0-5 /HPF Urine Squamous Epithelial Cells Few <5 /hpf Urine Bacteria None seen None Seen /hpf Urine Glucose Normal Normal mg/dL White Blood Count 7.7 4.4-10.8 10^3/uL Red Blood Count 4.62 4.0-5.20 10^6/uL Hemoglobin 11.3 L 12.2-16.2 g/dL Hematocrit 34.7 L 36.0-46.0 % Mean Corpuscular Volume 75.1 L 80.0-100.0 fL Mean Corpuscular Hemoglobin 24.5 L 28.0-32.0 pg Mean Corpuscular Hemoglobin Concent 32.6 32.0-36.0 g/dL Red Cell Distribution Width 19.3 H 11.8-14.3 % Platelet Count 340 140-450 10^3/uL Mean Platelet Volume 8.6 6.9-10.8 fL Neutrophils (%) (Auto) 67.8 37.0-80.0 % Lymphocytes (%) (Auto) 22.9 10.0-50.0 % Monocytes (%) (Auto) 6.8 0.0-12.0 % Eosinophils (%) (Auto) 2.1 0.0-7.0 % Basophils (%) (Auto) 0.4 0.0-2.0 % Neutrophils # (Auto) 5.2 1.6-8.6 10 ^3/uL Lymphocytes # (Auto) 1.8 0.4-5.4 10 ^3/uL Monocytes # (Auto) 0.5 0-1.3 10 ^3/uL Eosinophils # (Auto) 0.2 0-0.8 10 ^3/uL Basophils # (Auto) 0 0-0.2 10 ^3/uL Nucleated Red Blood Cells 0.0 % Prothrombin Time 10.5 9.3-11.8 sec Prothrombin Time INR 0.99 0.9-1.15 Activated Partial Thromboplast Time 25.9 24.5-34.5 SEC Sodium Level 138 136-145 mmol/L Potassium Level 4.0 3.5-5.1 mmol/L Chloride Level 103 98-107 mmol/L Carbon Dioxide Level 29 20-31 mmol/L Anion Gap 6 5-15 Blood Urea Nitrogen 13 9-23 mg/dL Creatinine 0.81 0.550-1.02 mg/dL Glomerular Filtration Rate Calc 90 >90 mL/min BUN/Creatinine Ratio 16.0 10.0-20.0 Serum Glucose 79 74-106 mg/dL Lactic Acid Level 0.6 0.4-2.0 mmol/L Calcium Level 9.8 8.7-10.4 mg/dL Total Bilirubin 0.3 0.2-1.0 mg/dL Aspartate Amino Transferase (AST) 21 13-40 U/L Alanine Aminotransferase (ALT) 27 7-40 U/L Alkaline Phosphatase 114 46-116 U/L B-Type Natriuretic Peptide 11.59 0-100 pg/mL Total Protein 7.2 5.7-8.2 g/dL Albumin 4.3 3.2-4.8 g/dL Lipase 32 12-53 U/L Current Medications Medications (Trade) Dose Ordered Sig/Axel Route Start Time Stop Time Status Last Admin Prednisone 60 mg ONCE ONCE PO 03/10/25 19:45 03/10/25 19:46 DC 03/10/25 20:52 Aspirin (Ecotrin Enteric Coated Tablet) 325 mg ONCE ONCE PO 03/10/25 20:45 03/10/25 20:46 DC 03/10/25 20:52 [place] [address] Ph: [phone] DIAGNOSTIC IMAGING Diagnostic Imaging Report : [id number] Signed PATIENT: RABIA KLINE ACCT: [id number] UNIT: [id number] : 1980 LOC: ER ROOM / BED: / AGE / SEX: 45 / F ADM STATUS: REG ER SERVICE 06 ORDERING PHYSICIAN: JENNIFER AMARAL DO PROCEDURE(s): [place] - ANGIO HEAD/Neck REASON: r facial numbness ORDER NUMBER(s): [id number], ACCESSION NUMBER(s): [id number] INDICATION: r facial numbness COMPARISON: None TECHNIQUE: CTA head without and with intravenous contrast. CTA neck with intravenous contrast. 3D image postprocessing was performed on a dedicated workstation and images were used for interpretation and reporting. Radiation Dose Information: CT Dose: CTDI volume is 54.34 mGy. Dose-length product is 1575.39 mGy*cm Omnipaque 350: 99 mL FINDINGS: CT head: There is no evidence of acute intracranial hemorrhage, extra-axial collection, mass effect, midline shift, herniation or hydrocephalus. The ventricles, sulci and cisterns are age appropriate. The bautista-white differentiation is intact. The visualized paranasal sinuses and mastoid air cells are clear. The surrounding soft tissues and osseous structures are unremarkable. CTA head: There is normal enhancement of the visualized distal internal carotid, anterior and middle cerebral arteries. There is a normal anterior communicating artery complex. There are bilateral posterior communicating arteries. The vertebral, basilar, cerebellar and posterior cerebral arteries are within normal limits. The early parenchymal enhancement is grossly unremarkable. The visualized intracranial venous structures are grossly unremarkable. CTA neck: The visualized thoracic aortic arch and proximal great vessels are unremarkable. The left common, internal and external carotid arteries are within normal limits. The right common, internal and external carotid arteries are within normal limits. The cervical segments of the right and left vertebral arteries are within normal limits. The limited visualized lung apices are clear. The surrounding soft tissues and osseous structures are otherwise unremarkable. IMPRESSION: 1. No evidence of acute intracranial hemorrhage, mass effect or hydrocephalus. 2. No evidence of hemodynamically significant intracranial stenosis, proximal occlusion or aneurysm. 3. No evidence of hemodynamically significant cervical stenosis or dissection. 4. No large vessel occlusion. All CT scans at this medical facility are performed using dose modulation techni ques as appropriate to a performed exam including the following: Automated exposure control was utilized; adjustment of the MA and/or KV according to patient size; and use of iterative reconstruction technique. ATED BY: RUBEN QUINONES Jr., DO DICTATED DATE/TIME: 03/10/252032 SIGNED BY: RUBEN QUINONES Jr., SIGNED DATE/TIME: 03/10/252032 CC: [address] [address] Ph: [phone] DIAGNOSTIC IMAGING Diagnostic Imaging Report : [id number] Signed PATIENT: RABIA KLINE ACCT: [id number] UNIT: [id number] : 1980 LOC: ER ROOM / BED: / AGE / SEX: 45 / F ADM STATUS: REG ER SERVICE 03 ORDERING PHYSICIAN: JENNIFER AMARAL DO PROCEDURE(s): CTH - STROKE CTH REASON: R facial neuro complaints ORDER NUMBER(s): [id number], ACCESSION NUMBER(s): [id number] Procedure: CT STROKE CTH Study Date and Requested Time: 03/10/2025 07:18 PM Study R facial neuro complaints Comparison: None Dose: CTDI: 57.5 mGy DLP: 1018.09 mGycm Technique: Multiplanar images obtained through the brain without intravenous contrast. Findings: Hypodensity involving the jzurm-etvybqv-edko-left cerebellum with dilatation of the 4th ventricle which may be from encephalomalacia. Suggested Postsurgical changes of occipital craniotomy. Mild chronic small-vessel ischemic changes. Nonspecific hypodensity over the right christiano. No hemorrhages, mass effect, midline shift, or herniation. No intra-axial or extra-axial fluid collections. No evidence of hydrocephalus. The basal cisterns are patent. The pituitary gland, sella and parasellar regions are unremarkable. The cerebellar tonsils are in normal position. The cerebellum is unremarkable. The orbits and globes are unremarkable. There is partial opacification of left mid ethmoid air cells. The remainder of the paranasal sinuses and mastoids are clear. paranasal sinuses and mastoids are clear. There are no worrisome calvarial lesions. Impression: Postsurgical changes of craniotomy with njqkv-yolfqcq-qajs-left cerebellar hypodensities which most likely represent encephalomalacia and associated dilatation of the 4th ventricle. Superimposed acute infarct can not be excluded. If symptoms persist, consider MRI for further evaluation. Nonspecific hyperdensities /calcification within the right side of the chrisitano. ATED BY: LINDSEY BUTT DO DICTATED DATE/TIME: 03/10/252013 SIGNED BY: LINDSEY BUTT DO SIGNED DATE/TIME: 03/10/252013 CC: [place] [address] Ph: [phone] DIAGNOSTIC IMAGING Diagnostic Imaging Report : [id number] Signed PATIENT: RABIA KLINE ACCT: [id number] UNIT: [id number] : 1980 LOC: ER ROOM / BED: / AGE / SEX: 45 / F ADM STATUS: REG ER SERVICE 1904 ORDERING PHYSICIAN: JENNIFER AMARAL DO PROCEDURE(s): CXR1 - CHEST XRAY 1 VIEW REASON: ruq pain ORDER NUMBER(s): [id number], ACCESSION NUMBER(s): [id number] CHEST RADIOGRAPH Indication: ruq pain Technique: Single frontal view of the chest was obtained COMPARISON: XY CHEST XRAY 1 VIEW on DOS: FINDINGS: Lines and Tubes: None Lungs: Clear Pleura: No effusion. No pneumothorax. Cardiomediastinal contours: Unremarkable Bones: Unremarkable IMPRESSION: No abnormality demonstrated. ATED BY: JOS BERTRAND MD DICTATED DATE/TIME: 03/10/252118 SIGNED BY: JOS BERTRAND MD SIGNED DATE/TIME: 03/10/252118 CC: [place] [address] Ph: [phone] DIAGNOSTIC IMAGING Diagnostic Imaging Report : [id number] Signed PATIENT: RABIA KLINE ACCT: [id number] UNIT: [id number] : 1980 LOC: ER ROOM / BED: / AGE / SEX: 45 / F ADM STATUS: REG ER SERVICE [id number] ORDERING PHYSICIAN: JENNIFER AMARAL DO PROCEDURE(s): ABPL - CT AB PEL WO CON-NO ORAL OR IV REASON: ruq pain and hematochezia ORDER NUMBER(s): [id number], ACCESSION NUMBER(s): [id number] CLINICAL HISTORY: ruq pain and hematochezia TECHNIQUE: CT of the abdomen and pelvis was performed without intravenous contrast. This exam was performed according to our departmental dose optimization program. Up-to-date CT equipment and radiation dose reduction techniques are utilized as appropriate. CTDI: 16.09 DLP: 822.84 WID: COMPARISON: CT CT AB PEL WO CON-NO ORAL OR IV on DOS: 11/16/24 FINDINGS: Lower Thorax: Tiny subpleural sub 5 mm nodule is unchanged in the left lower lobe on series 3, image 8. Normal-sized heart. Liver and Biliary system: Unremarkable. Spleen: Unremarkable. Adrenal Glands and Kidneys: Normal adrenal glands. No hydronephrosis or nephrolithiasis. There is a small hypodense lesion in the lower pole right kidney in the upper pole left kidney which is not optimally evaluated without contrast. Small hyperdense lesion in the interpolar right kidney is also unchanged. Pancreas and Retroperitoneum: Unremarkable. Aorta and Major Vessels: Unremarkable. Bowel, Mesentery and Peritoneal space: Normal caliber small and large bowel. Normal appendix. No free air or fluid collection. There are multiple partially calcified soft tissue nodules in the mesentery largest in the left upper abdomen measuring 3 cm on series 2, image 24. Pelvis: Prior hysterectomy. There is scattered gas in the vagina. Urinary bladder is mildly distended. There is a cystic lesion in the right adnexa measuring 3.8 cm on series 2 image 68. Abdominal wall and Osseous Structures: There is a fat containing left of midline anterior abdominal wall hernia above the level of the umbilicus. No destructive osseous lesion. IMPRESSION: 1. No bowel obstruction, fluid collection, or free air. Normal appendix. 2. Scattered unchanged partially calcified nodules in the abdomen. 3. Cystic lesion in the right adnexa which could reflect an ovarian cyst. ATED BY: URSZULA BURT MD DICTATED DATE/TIME: 03/10/251935 SIGNED BY: URSZULA BURT MD SIGNED DATE/TIME: 03/10/251935 CC: Time of 1ST Reevaluation: 19:31 (The case was discussed with the neurology on- call team (HPI, physical exam, labs and diagnostic tests that were available at the time of disposition, ED course, treatment plan) on the phone. They agreed to evaluate the patient and give further recommendation. So far Dr. Noriega suspects that this is stroke mimic and is not a candidate for anticoagulation. ) Reevaluation 1ST: Unchanged Patient Education/Counseling: Diagnosis, Treatment Family Education/Counseling: Other Comments Patient presented with the above HPI.---abdominal pain---workup was initiated. patient was found with the above mentioned diagnosis. the following medications were ordered: please refer to order lists of meds and tests obtained by myself Dr. Amaral. Patient ED course and VS have been stabilized. Patient has been reassessed in the ED and remained in a stable condition. Pertinent incidental findings were discussed with the patient and/or family. Patient/family voices understanding and is agreeable with plan. Patient has been observed in the ED adequate length of time to insure improveme nt/stability. Escalation of care considered: Consideration of escalation to observation or admission Patient had some neurological complaints. Stroke code was activated. Patient was taken CT scan with IV contrast. Contrast infiltrate in the upper extremity. Infiltration radiology department protocol was initiated for extremity contrast infiltration. Neurology was consulted who evaluated the patient via tele neuro. Please see their recommendation and consultation notes. Patient was ADMITTED to the medicine team for further evaluation and treatment of their presentation. I gave the patient prednisone in case she is developing early Cifuentes's palsy. Given her stroke-like symptoms I gave her an aspirin. All the reports of any imaging studies that were ordered by myself were reviewed by myself. Departure 1 Departure Time of Disposition: 20:00 Impression: Primary Impression: Neurological complaint Additional Impressions: Hypertension Right upper quadrant pain IV infiltration Disposition: ADMITTED INPATIENT Admit to: Tele Condition: Guarded Discharged With: Self Critical Care Note Critical Care Time?: Yes (1 hr-critical care time only) JENNIFER AMARAL DO Mar 10, 2025 19:13
[2025-03-10 19:34] LABS: INR 0.99 (0.9-1.15); Partial Thromboplastin Time 25.9 SEC (24.5-34.5); Prothrombin Time 10.5 sec (9.3-11.8)
--- NOTE | 2025-03-10 19:39 | DVH ---
CLINICAL HISTORY: ruq pain and hematochezia TECHNIQUE: CT of the abdomen and pelvis was performed without intravenous contrast. This exam was per formed according to our departmental dose optimization program. Up-to-date CT equipment and radiation dose reduction techniques are utilized as appropriate. CTDI: 16.09 DLP: 822.84 WID: COMPARISON: CT CT AB PEL WO CON-NO ORAL OR IV on DOS: 11/16/24 FINDINGS: Lower Thorax: Tiny subpleural sub 5 mm nodule is unchanged in the left lower lobe on series 3, image 8. Normal-sized heart. Liver and Biliary system: Unremarkable. Spleen: Unremarkable. Adrenal Glands and Kidneys: Normal adrenal glands. No hydronephrosis or nephrolithiasis. There is a s mall hypodense lesion in the lower pole right kidney in the upper pole left kidney which is not optim ally evaluated without contrast. Small hyperdense lesion in the interpolar right kidney is also unch anged. Pancreas and Retroperitoneum: Unremarkable. Aorta and Major Vessels: Unremarkable. Bowel, Mesentery and Peritoneal space: Normal caliber small and large bowel. Normal appendix. No free air or fluid collection. There are multiple partially calcified soft tissue nodules in the mesentery largest in the left upper abdomen measuring 3 cm on series 2, image 24. Pelvis: Prior hysterectomy. There is scattered gas in the vagina. Urinary bladder is mildly distended . There is a cystic lesion in the right adnexa measuring 3.8 cm on series 2 image 68. Abdominal wall and Osseous Structures: There is a fat containing left of midline anterior abdominal w all hernia above the level of the umbilicus. No destructive osseous lesion. IMPRESSION: 1. No bowel obstruction, fluid collection, or free air. Normal appendix. 2. Scattered unchanged partially calcified nodules in the abdomen. 3. Cystic lesion in the right adnexa which could reflect an ovarian cyst.
[2025-03-10] MEDS: IOHEXOL 350 MG/ML 100ML IJ ONE ×2 (20:09→20:49)
--- NOTE | 2025-03-10 20:16 | DVH ---
Procedure: CT STROKE [facility] Study Date and Requested Time: 03/10/2025 07:18 PM Study R facial neuro complaints Comparison: None Dose: CTDI: 57.5 mGy DLP: 1018.09 mGycm Technique: Multiplanar images obtained through the brain without intravenous contrast. Findings: Hypodensity involving the qedsn-fbarfur-nxrv-left cerebellum with dilatation of the 4th ventricle whi ch may be from encephalomalacia. Suggested Postsurgical changes of occipital craniotomy. Mild chronic small-vessel ischemic changes. Nonspecific hypodensity over the right christiano. No hemorrhages, mass effect, midline shift, or herniation. No intra-axial or extra-axial fluid colle ctions. No evidence of hydrocephalus. The basal cisterns are patent. The pituitary gland, sella and parasellar regions are unremarkable. The cerebellar tonsils are in nor mal position. The cerebellum is unremarkable. The orbits and globes are unremarkable. There is partial opacification of left mid ethmoid air cells. The remainder of the paranasal sinuses and mastoids are clear. paranasal sinuses and mastoids are cl ear. There are no worrisome calvarial lesions. Impression: Postsurgical changes of craniotomy with nnrmz-tqivzmi-pefe-left cerebellar hypodensities which most likely represent encephalomalacia and associated dilatation of the 4th ventricle. Superimposed acute infarct can not be excluded. If symptoms persist, consider MRI for further evaluation. Nonspecific hyperdensities /calcification within the right side of the christiano.
--- NOTE | 2025-03-10 20:35 | DVH ---
INDICATION: r facial numbness COMPARISON: None TECHNIQUE: CTA head without and with intravenous contrast. CTA neck with intravenous contrast. 3D image postprocessing was performed on a dedicated workstation and images were used for interpretation and reporting. Radiation Dose Information: CT Dose: CTDI volume is 54.34 mGy. Dose-length product is 1575.39 mGy*cm Omnipaque 350: 99 mL FINDINGS: CT head: There is no evidence of acute intracranial hemorrhage, extra-axial collection, mass effect, midline s hift, herniation or hydrocephalus. The ventricles, sulci and cisterns are age appropriate. The bautista -white differentiation is intact. The visualized paranasal sinuses and mastoid air cells are clear. The surrounding soft tissues and osseous structures are unremarkable. CTA head: There is normal enhancement of the visualized distal internal carotid, anterior and middle cerebral a rteries. There is a normal anterior communicating artery complex. There are bilateral posterior com municating arteries. The vertebral, basilar, cerebellar and posterior cerebral arteries are within n ormal limits. The early parenchymal enhancement is grossly unremarkable. The visualized intracrania l venous structures are grossly unremarkable. CTA neck: The visualized thoracic aortic arch and proximal great vessels are unremarkable. The left common, internal and external carotid arteries are within normal limits. The right common, internal and external carotid arteries are within normal limits. The cervical segments of the right and left vertebral arteries are within normal limits. The limited visualized lung apices are clear. The surrounding soft tissues and osseous structures ar e otherwise unremarkable. IMPRESSION: 1. No evidence of acute intracranial hemorrhage, mass effect or hydrocephalus. 2. No evidence of hemodynamically significant intracranial stenosis, proximal occlusion or aneurysm. 3. No evidence of hemodynamically significant cervical stenosis or dissection. 4. No large vessel occlusion. All CT scans at this medical facility are performed using dose modulation techniques as appropriate t o a performed exam including the following: Automated exposure control was utilized; adjustment of th e MA and/or KV according to patient size; and use of iterative reconstruction technique.
[2025-03-10] MEDS: predniSONE 20 MG TAB PO ONE (20:52)
[2025-03-10] MEDS: ASPirin-EC 325mg tab PO ONE (20:52)
[2025-03-10 21:00] VITALS: PULSE 81; RESP 16; O2SAT 99
--- NOTE | 2025-03-10 21:22 | DVH ---
CHEST RADIOGRAPH Indication: ruq pain Technique: Single frontal view of the chest was obtained COMPARISON: XY CHEST XRAY 1 VIEW on DOS: FINDINGS: Lines and Tubes: None Lungs: Clear Pleura: No effusion. No pneumothorax. Cardiomediastinal contours: Unremarkable Bones: Unremarkable IMPRESSION: No abnormality demonstrated.
[2025-03-11] MEDS: SUCRALFATE 1 GM TAB PO ONE (00:47)
[2025-03-11] MEDS: PANTOPRAZOLE 40 MG TAB PO ONE (00:47)
[2025-03-11] MEDS: LIDOCAINE VISCOUS 2% 15ML UD PO ONE (00:47)
[2025-03-11] MEDS ORDERED: ONDANSETRON HCL 4 MG/2 ML VIAL IV PRN (02:15)
[2025-03-11] MEDS ORDERED: IBUPROFEN 800 MG TAB PO PRN (02:15)
[2025-03-11] MEDS ORDERED: LORazepam 0.5 MG TAB PO PRN (02:15)
[2025-03-11] MEDS ORDERED: ACETAMINOPHEN 325 MG TAB PO PRN (02:15)
[2025-03-11] MEDS ORDERED: MORPHINE SULFATE INJ 2 MG/ml SYRG IV PRN (02:15)
--- NOTE | 2025-03-11 02:25 | DVHHPRES ---
History of Present Illness Resident Creating Document: ROSIE PIÑA History of Present Illness Elma Grace is a 45-year-old female patient who presents to the ED with chief complaint of painless hematochezia with normal bowel movements which started today, preceded by abdominal pain and nausea for two days before her admission. During her weight in the ED she presented right-sided facial numbness associated with high blood pressure. Patient reports history of craniotomy due to brain tumor with sequela of left facial droop. Denies fever, chills, syncope, palpitation, chest pain, dyspnea, dysuria, recent travel, sick contacts, previous history of endoscopies, diarrhea and other motor or sensory deficits. 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 Pancreatitis. Surgical history: Bilateral tubal ligation 2007, hysterectomy on 11/2024, craniectomy with tumor resection 2010 in 2011 Family history: Noncontributory Social history: Lives in [place] with father, (he is next of kin) and children. Denies current tobacco, alcohol and other drug abuse. Allergies: Lisinopril Home medication: Atorvastatin 40 mg p.o. daily, ibuprofen p.r.n., docusate p.r.n., ferrous sulfate, amlodipine 5 mg p.o. daily Patient seen and examined at bedside. Currently continues with mild right-sided facial numbness. Has not had a new bowel movement. Have ordered stool occult blood and brain MRI with contrast. Past Medical History Per HPI Past Surgical History Per HPI Family History Per HPI Past Social History Per HPI Review of Systems Review of Systems Per HPI Allergies: Coded Allergies: Lisinopril (Unverified Allergy, Severe, facial edema, 08/25/24) Medications Current Medications Medications Dose Ordered Sig/Axel Route Start Time Stop Time Status Last Admin Dose Admin Lorazepam 0.5 mg Q6HP PRN PO 03/11/25 02:15 UNV Acetaminophen 650 mg Q6HP PRN PO 03/11/25 02:15 Ondansetron HCl 4 mg Q4HP PRN IV 03/11/25 02:15 Morphine Sulfate 2 mg Q4HPRN PRN IV 03/11/25 02:15 Docusate Sodium 100 mg BID PO 03/11/25 10:00 UNV Ferrous Sulfate 325 mg TID PO 03/11/25 06:00 UNV Ibuprofen 800 mg Q8HP PRN PO 03/11/25 02:15 UNV Patient Own Medication 10 mg DAILY PO 03/11/25 10:00 UNV Patient Own Medication 40 mg DAILY PO 03/11/25 10:00 UNV Pantoprazole Sodium 40 mg DAILY IV 03/11/25 10:00 UNV Exam Vital Signs Vital Signs Date Time Temp Pulse Resp B/P (MAP) Pulse Ox O2 Delivery O2 Flow Rate FiO2 03/10/25 21:00 81 16 99 Room Air* 0 21 03/10/25 20:57 156/86 (109) 03/10/25 17:56 98.5 98.5 Exam Patient lying in bed, in no acute distress General: Lucid, afebrile, mucosae are moist. Presents xanthomas and palpebral area Cardiovascular: Normal S1 and S2. No murmurs, gallops or rubs Respiratory: Normal ventilation mechanics. Clear lung sounds on auscultation Abdomen: Soft, nontender, no organomegaly, normal bowel sounds MSK/skin: Mobilizes 4 limbs. Skin is dry and warm Neurological: Oriented in 3 spheres. Presents mild left-sided facial drooping. No apparent motor no sensitive deficits. Pupils are isocoric and reactive Labs/Xrays Labs Test 03/10/25 22:00 03/10/25 18:42 03/10/25 18:09 Range/Units Troponin I High Sensitivity < 3 L </=34 ng/L Urine Color Colorless Yellow Urine Clarity Clear Clear Urine pH 7.0 5.0-9.0 Urine Specific [place] 1.014 1.001-1.035 Urine Protein Negative Negative Urine Ketones Negative Negative Urine Blood Negative Negative /uL Urine Nitrite Negative Negative Urine Bilirubin Negative Negative Urine Urobilinogen Normal Negative mg/dL Urine Leukocyte Esterase 1+ Negative /uL Urine RBC 1 0 - 4 /hpf Urine Microscopic WBC 2 0-5 /HPF Urine Squamous Epithelial Cells Few <5 /hpf Urine Bacteria None seen None Seen /hpf Urine Glucose Normal Normal mg/dL White Blood Count 7.7 4.4-10.8 10^3/uL Red Blood Count 4.62 4.0-5.20 10^6/uL Hemoglobin 11.3 L 12.2-16.2 g/dL Hematocrit 34.7 L 36.0-46.0 % Mean Corpuscular Volume 75.1 L 80.0-100.0 fL Mean Corpuscular Hemoglobin 24.5 L 28.0-32.0 pg Mean Corpuscular Hemoglobin Concent 32.6 32.0-36.0 g/dL Red Cell Distribution Width 19.3 H 11.8-14.3 % Platelet Count 340 140-450 10^3/uL Mean Platelet Volume 8.6 6.9-10.8 fL Neutrophils (%) (Auto) 67.8 37.0-80.0 % Lymphocytes (%) (Auto) 22.9 10.0-50.0 % Monocytes (%) (Auto) 6.8 0.0-12.0 % Eosinophils (%) (Auto) 2.1 0.0-7.0 % Basophils (%) (Auto) 0.4 0.0-2.0 % Neutrophils # (Auto) 5.2 1.6-8.6 10 ^3/uL Lymphocytes # (Auto) 1.8 0.4-5.4 10 ^3/uL Monocytes # (Auto) 0.5 0-1.3 10 ^3/uL Eosinophils # (Auto) 0.2 0-0.8 10 ^3/uL Basophils # (Auto) 0 0-0.2 10 ^3/uL Nucleated Red Blood Cells 0.0 % Prothrombin Time 10.5 9.3-11.8 sec Prothrombin Time INR 0.99 0.9-1.15 Activated Partial Thromboplast Time 25.9 24.5-34.5 SEC Sodium Level 138 136-145 mmol/L Potassium Level 4.0 3.5-5.1 mmol/L Chloride Level 103 98-107 mmol/L Carbon Dioxide Level 29 20-31 mmol/L Anion Gap 6 5-15 Blood Urea Nitrogen 13 9-23 mg/dL Creatinine 0.81 0.550-1.02 mg/dL Glomerular Filtration Rate Calc 90 >90 mL/min BUN/Creatinine Ratio 16.0 10.0-20.0 Serum Glucose 79 74-106 mg/dL Lactic Acid Level 0.6 0.4-2.0 mmol/L Calcium Level 9.8 8.7-10.4 mg/dL Total Bilirubin 0.3 0.2-1.0 mg/dL Aspartate Amino Transferase (AST) 21 13-40 U/L Alanine Aminotransferase (ALT) 27 7-40 U/L Alkaline Phosphatase 114 46-116 U/L B-Type Natriuretic Peptide 11.59 0-100 pg/mL Total Protein 7.2 5.7-8.2 g/dL Albumin 4.3 3.2-4.8 g/dL Lipase 32 12-53 U/L Assessment/Plan Assessment/Plan Assessment: Rule out CVA and recurrence of brain tumor Lower GI bleed symptomatic by hematochezia Intractable abdominal pain Mild microcytic anemia UTI Questionable gastritis induced by ibuprofen Hypertension Dyslipidemia History of steroid induced diabetes History of CVA History of uterine fibroids status post hysterectomy Constipation induced by iron pills Plan: Obtain abdomen and pelvis CT which showed scattered calcified nodules in abdomen which are unchanged, cystic lesion of right adnexa compatible with cyst, no other acute findings. Head CT was completed and shows postsurgical changes of craniotomy in right greater than left cerebellar hypodensity (superimposed infarct can not be excluded). CTA of head and neck vessels shows no stenosis Reviewed laboratory results, mild microcytic anemia, patient is on iron treatment, we will ordered iron panel at this point. Pending stool occult blood. Discontinue ibuprofen at the moment, currently on pantoprazole, no blood thinners administered. Urine cultures positive for esterase and white blood cells. Currently under empiric IV antibiotic (ceftriaxone). Ordered urine culture. Neurology specialist was consulted. Per patient, neurologist over at [place] recommended evaluation by oncologist to rule out recurrence of brain tumor. Have ordered head MRI with contrast, pending. Goals of care discussed with patient for over 18 minutes: Full code status Discussed plan with Dr. Golden, patient and nurses: Patient is hemodynamically stable, admitted to telemetry until CVA is ruled out with head MRI, we will also evaluate recurrence of brain tumor. Stool occult blood was ordered, evaluate need for GI consult (patient is hemodynamically stable with mild anemia), per patient she never completed colonoscopy. Plan discussed with: Patient, Other (Nurses) My Orders Orders - ROSIE PIÑA RESIDENT Procedure Category Date Status Time Admit ADMIT 03/11/25 Transmitted 02:04 Code Status CODE 03/11/25 Transmitted 02:04 Review Orders With [facility] 03/11/25 In Process Adm. 02:04 Lorazepam Tablet [facility] 03/11/25 Logged (Ativan Tablet) 02:15 Acetaminophen Tablet [facility] 03/11/25 In Process (Tylenol Tablet) 02:15 Notify Md Of Changes [facility] 03/11/25 Transmitted From Base 02:04 Advance Directive [facility] 03/11/25 Transmitted 02:04 Patient Condition ORDERS 03/11/25 Transmitted 02:04 Allergies [facility] 03/11/25 Transmitted 02:04 Ondansetron Hcl [facility] 03/11/25 In Process (Zofran) 02:15 Morphine Sulfate [facility] 03/11/25 In Process Injection 02:15 Oxygen By Nasal RT 03/11/25 Transmitted Cannula 02:04 Stat Ekg For Chest [facility] 03/11/25 In Process Pain 02:04 Notify Md Of Changes [facility] 03/11/25 In Process From Base 02:04 Drill Operator Pneumatic For [facility] 03/11/25 In Process 24 Hours 02:04 Emergency Dysrhythmia [facility] 03/11/25 In Process Protocol 02:04 Rhythm Strips Once [facility] 03/11/25 In Process Every Shift 02:04 Brain Head Wo W MRI 03/11/25 Logged Contrast 02:04 Docusate Sodium [facility] 03/11/25 Logged Capsule (Colace 10:00 Ferrous Sulfate Tablet [facility] 03/11/25 Logged 06:00 Ibuprofen Tablet [facility] 03/11/25 Logged (Motrin Tablet) 02:15 (Nf) Amlodipine PHA 03/11/25 Logged Besylate 10:00 (Nf) Atorvastatin [facility] 03/11/25 Logged Calcium (Lipitor) 10:00 Stool Occult Blood LAB 03/11/25 Logged 02:08 Pantoprazole [facility] 03/11/25 Logged (Protonix) 10:00 Pantoprazole PHA 03/11/25 Logged (Protonix) 02:15 Date of Service: Mar 11, 2025 Billing Provider: MIRI GOLDEN MD Common Visit Codes: [id number] INP/OBS CARE (HIGH) ROSIE PIÑA RESIDENT Mar 11, 2025 02:24 MIRI GOLDEN MD Mar 11, 2025 13:24
[2025-03-11] MEDS: PANTOPRAZOLE 40 MG/10 ML VIAL INJ IV ONE (02:30)
[2025-03-11] MEDS: cefTRIAXone 1GM/50ML D5W 50 ML IV ONE (02:40)
[2025-03-11 03:37] LABS: Amphetamine Screen, Urine Neg (NEGATIVE); Barbiturate Scree,Urine Neg (NEGATIVE); Benzodiazephine Screen, Urine Neg (NEGATIVE); Cannabinoid Screen, Urine Neg (NEGATIVE); Cocaine Screen, Urine Neg (NEGATIVE); Opiate Scree,Urine Neg (NEGATIVE); Phencyclidine Screen, Urine Neg (NEGATIVE)
[2025-03-11 04:19] VITALS: BP 118/76; PULSE 92; RESP 20; TEMP 97.7; O2SAT 93
[2025-03-11 05:00] VITALS: BP 124/75; PULSE 90; RESP 18; O2SAT 94
[2025-03-11 06:45] LABS: Chloride 99 mmol/L (98-107); Potassium 4.5 mmol/L (3.5-5.1)
[2025-03-11 06:46] LABS: Anion Gap 9 (5-15); Carbon Dioxide 27 mmol/L (20-31)
[2025-03-11 06:49] LABS: Basophils # (auto) 0 10 ^3/uL (0-0.2); Eosinophils # (auto) 0 10 ^3/uL (0-0.8); Hemoglobin 12.4 g/dL (12.2-16.2); Lymphocytes # (auto) 0.8 10 ^3/uL (0.4-5.4); Lymphocytes % (auto) 8.5 % (10.0-50.0); Mean Corpuscular Hemoglobin 24.5 pg (28.0-32.0); Monocytes # (auto) 0.1 10 ^3/uL (0-1.3); Neutrophils # (auto) 8.4 10 ^3/uL (1.6-8.6)
[2025-03-11 06:50] LABS: Basophils % (auto) 0.2 % (0.0-2.0); Hematocrit 37.7 % (36.0-46.0); Mean Corpuscular Hgb Conc. 32.7 g/dL (32.0-36.0); Mean Corpuscular Volume 74.9 fL (80.0-100.0); Monocytes % (auto) 1.3 % (0.0-12.0); Platelet Count (auto) 362 10^3/uL (140-450); Red Blood Cells 5.04 10^6/uL (4.0-5.20); Red Cell Distribution Width 19.8 % (11.8-14.3); White Blood Cell 9.4 10^3/uL (4.4-10.8)
[2025-03-11 06:52] LABS: BUN/Creatinine Ratio 13.3 (10.0-20.0); Blood Urea Nitrogen 14 mg/dL (9-23); Magnesium 1.9 mg/dL (1.6-2.6); Triglycerides 63 mg/dL (< 150)
[2025-03-11 06:53] LABS: HDL Cholesterol 52 mg/dL (40-59)
[2025-03-11 06:58] LABS: Calcium 10.9 mg/dL (8.7-10.4); Cholesterol 222 mg/dL (< 200); Glucose 184 mg/dL (74-106); LDL Cholesterol 166 mg/dL (< 100); Sodium 135 mmol/L (136-145)
[2025-03-11 07:09] LABS: % Iron Saturation 10.6 % (15-50)
[2025-03-11 07:13] LABS: Ferritin 4.7 ng/mL (10-291); Folate (Folic Acid) 10.07 ng/mL (>5.38)
[2025-03-11] MEDS: FERROUS SULFATE 325mg EC TAB PO SCH (07:53)
[2025-03-11 08:00] VITALS: BP 152/86; PULSE 89; RESP 18; TEMP 98; O2SAT 95
[2025-03-11] MEDS ORDERED: GADOTERATE MEG 10 MMOL/20ml INJ (0.5MMOL/ml) IV ONE (08:17)
[2025-03-11 08:33] LABS: Hypochromia Slight; Large Platelets FEW; Platelet Estimate Adequate
[2025-03-11 08:34] LABS: Ovalocytes FEW
--- NOTE | 2025-03-11 09:07 | DVHINCON2 ---
Date of service: Mar 11, [address] Alcaraz Reason for Consultation Right facial numbness History of Present Illness Ms. Grace is a 45 years old right-handed female with a history of hypertension, diabetes, dyslipidemia, brain ependymoma status post resection, seizure disorder, chronic pain syndrome, she came to the [facility] on 03/10[facility]2025 with a chief company of right abdominal pain and right facial numbness. At this time, she is alert and fully oriented, but she was not a good historian I saw her on 01/14/2019 for headache She developed abdominal pain at home, soon after she had numbness in the right face, in the problem has been persistent with no changes till now. She denies facial weakness, numbness weakness right arm and the legs. She denies a history of stroke She was chronic pain syndrome involving the shoulder, and sometimes back She also has headache, seizure, as summarized below Headache Onset: 2010 Symptoms: She was constant bad, 7/10, right-sided throbbing headache, with se nsitivity to lights and noise, but no photophobia or sonophobia. No family history of migraine headache or headache She was no history of headache prior to 2010 Aura: None Triggers: None Relieved by: None Worsened by: None Current treatment: She was me on daily pain medication for many years, [place] 10/325 b.i.d., ibuprofen daily. She does not remember preventive treatments Seizure Onset: 2010, when she was going through brain tumor resection Time of last the seizure attack: 2018 Symptoms: The patient is not aware of her symptoms, and she has note been informed by her seizure symptoms Frequency: She has had 6 seizures total Previous evaluations: She is seen by her doctors Current treatment: Keppra 500 mg twice daily She has ependymoma and that she had craniectomy in 2010 and 2012 UDS, 03/10/2025: Negative Urinalysis, 03/10/2025: WBC: 2, urine leukocyte esterase: 1+ CBC, 03/11/2025: Unremarkable CMP, 03/10/2025: Unremarkable HGB A1c, 03/11/2025: 6.1 TG/HDL/LDL/HDL, 03/10/2025: 63/222/166/52 Vitamin B12, 03/11/25: 642 Folic acid, 03/11/25: 10.07 TSH, 03/11/25: 0.26 Iron profile, 03/11/2025: Iron deficiency Ferritin, 03/11/2025: 4.7 CTA head, neck, 03/10/25: 1. No evidence of acute intracranial hemorrhage, mass effect or hydrocephalus. 2. No evidence of hemodynamically significant intracranial stenosis, proximal occlusion or aneurysm. 3. No evidence of hemodynamically significant cervical stenosis or dissection. 4. No large vessel occlusion. CT head, 01/14/19: 1. No intracranial hemorrhage, mass effect or midline shift. 2. Unchanged prior suboccipital craniectomy changes with underlying e ncephalomalacia/gliosis involving the right cerebellum and vermis CT head, 03/10/2025: Postsurgical changes of craniotomy with geeqt-[id number]-brgb-left cerebellar hypodensities which most likely represent encephalomalacia and associated dilatation of the 4th ventricle. Superimposed acute infarct can not be excluded. If symptoms persist, consider MRI for further evaluation MRI head wwo, 03/11/2025: Scattered T2 hyperintensities in the right occipital lobe most likely old infarct. No diffusion restriction seen. Post surgical changes from an occipital craniectomy with encephalomalacia of the bilateral right > left cerebellum. Trace amount of contrast enhancement at the craniectomy site is most likely granulation tissue Past Medical History Hypertension, diabetes, dyslipidemia, seizure, brain tumor Past Surgical History Craniectomy, tubal ligation, hysterectomy Family History: Asthma G8 BROTHER Family History Asthma Social History The patient is a non-smoker, no history of alcohol or recreational substance abuse Allergies: Coded Allergies: Lisinopril (Unverified Allergy, Severe, facial edema, 08/25/24) Home Meds Active Scripts Docusate Sodium (Colace) 100 Mg Cap, 1 CAP PO BID, #30 CAP Prov:CHARLIE RANDLE DO 11/17/24 Ferrous Sulfate (Ferrous Sulfate) 325 Mg Tab, 325 MG PO TID, #60 TAB Prov:CHARLIE RANDLE DO 11/14/24 Ibuprofen Micronized (Ibuprofen) 800 Mg Tab, 800 MG PO Q8HP PRN, #40 TAB Prov:CHARLIE RANDLE DO 11/14/24 Hydrocodone-Acetaminophen (Hydrocodone Bitartrate/AC 10-325 mg) 1 Tab Tab, 1 TAB PO Q6HP PRN for 5 Days, #20 TAB Prov:CHARLIE RANDLE DO 11/14/24 Reported Medications Amlodipine Besylate (Amlodipine Besylate) 10 Mg Tab, 10 MG PO DAILY, TAB 08/25/24 Atorvastatin Calcium (Lipitor) 40 Mg Tab, 40 MG PO DAILY, TAB 08/25/24 Current Medications Current Medications Medications (Trade) Dose Ordered Sig/Axel Route PRN Reason Start Time Stop Time Status Last Admin Lorazepam (Ativan Tablet) 0.5 mg Q6HP PRN PO ANXIETY 03/11/25 02:15 Acetaminophen (Tylenol Tablet) 650 mg Q6HP PRN PO PAIN SCALE 1-3 OR TEMP>100.4 03/11/25 02:15 Ondansetron HCl (Zofran) 4 mg Q4HP PRN IV NAUSEA / VOMITING 03/11/25 02:15 Morphine Sulfate 2 mg Q4HPRN PRN IV SEVERE PAIN (7-10 PAIN SCALE) 03/11/25 02:15 Docusate Sodium (Colace Capsule) 100 mg BID PO 03/11/25 10:00 Ferrous Sulfate 325 mg TID PO 03/11/25 06:00 03/11/25 07:53 Ibuprofen (Motrin Tablet) 800 mg Q8HP PRN PO PAIN SCALE 7 THRU 10 03/11/25 02:15 Amlodipine Besylate (Norvasc Tablet) 10 mg DAILY PO 03/11/25 10:00 Atorvastatin Calcium (Lipitor) 40 mg HS PO 03/11/25 22:00 Pantoprazole Sodium (Protonix) 40 mg DAILY IV 03/11/25 10:00 Ceftriaxone Sodium 50 ml @ 100 mls/hr DAILY@09 IV 03/12/25 09:00 Review of Systems As above, the other systems are negative Vital Signs Vital Signs Date Time Temp Pulse Resp B/P (MAP) Pulse Ox O2 Delivery O2 Flow Rate FiO2 03/11/25 05:00 90 18 124/75 (91) 94 03/11/25 04:19 Room Air* 0 21 03/11/25 04:19 97.7 97.7 Physical Exam GENERAL EXAM: General: the patient is well developed and nourished. No acute distress. HEENT: Normocephalic, neck is supple, no carotid bruits. No mass RESPIRATORY: Normal respiratory effort with symmetrical lung expansion. Lungs clear to auscultation. CARDIOVASCULAR: Regular rate and rhythm with no murmurs. S1, S2. ABDOMEN: Soft, nontender, normal bowel sound NEUROLOGICAL: MENTAL STATUS: Awake and alert. Oriented to person, place, time and general circumstances. SPEECH, LANGUAGE, HIGHER CORTICAL FUNCTION: no aphasia or dysathria. CRANIAL NERVES: #2: Intact visual almanza to confrontation. The optic discs were sharp. #3,4,6: Pupils are equal, round and reactive. EOMs full and conjugate. There is gaze evoked nystagmus. #5: Facial sensation intact in all three divisions bilaterally. Mandibular strength intact. #7: Facial muscles symmetrical and strength intact. #8: Hearing grossly normal to voice. #9,10: Uvula and soft palate rise in the midline. Swallow and voice are normal. #11: Trapezius and sternomastoid strength intact bilaterally. #12: Tongue midline. No fasciculations or atrophy. SENSATION: Sensation to touch and pinprick is normal. MOTOR: Normal tone in the upper and lower extremity. Normal muscle bulk. No fasciculations. No abnormal movements or posturing. Muscle strength of the major groups in the upper extremities is 5/5. Muscle strength of the major groups in the lower extremities is 5/5. REFLEXES: Deep tendon reflexes normal and symmetrical. No pathological reflexes. CEREBELLAR/COORDINATION: She has mild to moderate degree of intentional tremor in the right hand, slight ataxia in the right leg GAIT/STATION: deferred. Labs/Diagnostic Data Labs Test 03/11/25 05:45 03/10/25 22:00 03/10/25 18:42 03/10/25 18:09 Range/Units White Blood Count 9.4 4.4-10.8 10^3/uL Red Blood Count 5.04 4.0-5.20 10^6/uL Hemoglobin 12.4 12.2-16.2 g/dL Hematocrit 37.7 36.0-46.0 % Mean Corpuscular Volume 74.9 L 80.0-100.0 fL Mean Corpuscular Hemoglobin 24.5 L 28.0-32.0 pg Mean Corpuscular Hemoglobin Concent 32.7 32.0-36.0 g/dL Red Cell Distribution Width 19.8 H 11.8-14.3 % Platelet Count 362 140-450 10^3/uL Mean Platelet Volume 9.2 6.9-10.8 fL Neutrophils (%) (Auto) 90.0 H 37.0-80.0 % Lymphocytes (%) (Auto) 8.5 L 10.0-50.0 % Monocytes (%) (Auto) 1.3 0.0-12.0 % Eosinophils (%) (Auto) 0.0 0.0-7.0 % Basophils (%) (Auto) 0.2 0.0-2.0 % Neutrophils # (Auto) 8.4 1.6-8.6 10 ^3/uL Lymphocytes # (Auto) 0.8 0.4-5.4 10 ^3/uL Monocytes # (Auto) 0.1 0-1.3 10 ^3/uL Eosinophils # (Auto) 0 0-0.8 10 ^3/uL Basophils # (Auto) 0 0-0.2 10 ^3/uL Nucleated Red Blood Cells 0.0 % Platelet Estimate Adequate Large Platelets Few Hypochromasia (manual) Slight Poikilocytosis (manual) Slight Microcytosis Slight Ovalocytes Few [place] Cells Few Reticulocyte Count (auto) 1.19 0.5-1.5 % Sodium Level 135 L 136-145 mmol/L Potassium Level 4.5 3.5-5.1 mmol/L Chloride Level 99 98-107 mmol/L Carbon Dioxide Level 27 20-31 mmol/L Anion Gap 9 5-15 Blood Urea Nitrogen 14 9-23 mg/dL Creatinine 1.05 H 0.550-1.02 mg/dL Glomerular Filtration Rate Calc 66 >90 mL/min BUN/Creatinine Ratio 13.3 10.0-20.0 Serum Glucose 184 H 74-106 mg/dL Hemoglobin A1c 6.1 H <5.7 % A1C Calcium Level 10.9 H 8.7-10.4 mg/dL Phosphorus Level 3.0 2.4-5.1 mg/dL Magnesium Level 1.9 1.6-2.6 mg/dL Iron Level 43 L 50-170 ug/dL Total Iron Binding Capacity 407 250-425 ug/dL Percent Iron Saturation 10.6 L 15-50 % Ferritin 4.7 L 10-291 ng/mL Triglycerides Level 63 < 150 mg/dL Cholesterol Level 222 H < 200 mg/dL LDL Cholesterol 166 H < 100 mg/dL HDL Cholesterol 52 40-59 mg/dL Vitamin B12 Level 642 211-911 pg/mL Vitamin D 25-Hydroxy 24.1 L 30.0-100 ng/mL Folic Acid 10.07 >5.38 ng/mL Thyroid Stimulating Hormone (TSH) 0.26 L 0.55-4.78 uIU/mL Troponin I High Sensitivity < 3 L </=34 ng/L Urine Color Colorless Yellow Urine Clarity Clear Clear Urine pH 7.0 5.0-9.0 Urine Specific [place] 1.014 1.001-1.035 Urine Protein Negative Negative Urine Ketones Negative Negative Urine Blood Negative Negative /uL Urine Nitrite Negative Negative Urine Bilirubin Negative Negative Urine Urobilinogen Normal Negative mg/dL Urine Leukocyte Esterase 1+ Negative /uL Urine RBC 1 0 - 4 /hpf Urine Microscopic WBC 2 0-5 /HPF Urine Squamous Epithelial Cells Few <5 /hpf Urine Bacteria None seen None Seen /hpf Urine Glucose Normal Normal mg/dL Urine Opiates Screen Neg NEGATIVE Urine Fentanyl Screen Neg NEGATIVE Urine Barbiturates Screen Neg NEGATIVE Urine Phencyclidine Screen Neg NEGATIVE Urine Amphetamines Screen Neg NEGATIVE Urine Benzodiazepines Screen Neg NEGATIVE Urine Cocaine Screen Neg NEGATIVE Urine Cannabinoids Screen Neg NEGATIVE Prothrombin Time 10.5 9.3-11.8 sec Prothrombin Time INR 0.99 0.9-1.15 Activated Partial Thromboplast Time 25.9 24.5-34.5 SEC Lactic Acid Level 0.6 0.4-2.0 mmol/L Total Bilirubin 0.3 0.2-1.0 mg/dL Aspartate Amino Transferase (AST) 21 13-40 U/L Alanine Aminotransferase (ALT) 27 7-40 U/L Alkaline Phosphatase 114 46-116 U/L B-Type Natriuretic Peptide 11.59 0-100 pg/mL Total Protein 7.2 5.7-8.2 g/dL Albumin 4.3 3.2-4.8 g/dL Lipase 32 12-53 U/L Assessment Left facial numbness/paresthesia, without acute abnormality in the MR brain scan Possible right occipital stroke per MRI Chronic constant right-sided headache Medication overuse headache Seizure Ependymoma status post surgical resection Chronic pain syndrome Right-sided ataxia Plan/Recommendation Monitoring Supportive treatment Telemetry Echocardiogram Keppra 500 mg twice daily Lipitor 40 mg daily Aspirin 81 mg daily A trial of IV fluids, dexamethasone 10 mg IV q.d., Reglan 15 mg t.i.d. for the headache Avoid daily pain medication for headache Good hydration Regular sleep schedule to avoid sleep deprivation Avoid headache triggers Have spent time discussing with her about my impression and recommendation Plan discussed with: Patient, Other MARKOS KENNY MD Mar 11, 2025 09:07
--- NOTE | 2025-03-11 09:16 | DVH ---
HISTORY: Rule out CVA vs recurrence of brain tumor COMPARISON: 03/10/2025 MRI BRAIN HEAD WO W CONTRAST INDICATION: Rule out CVA vs recurrence of brain tumor EXAM DATE: 03/11/2025 08:26 AM COMPARISON: 03/10/25 PROCEDURE: Using a 1.5 Latasha scanner, multisequence multiplanar imaging of the brain was obtained giulia or to and following intravenous administration of mL of David. FINDINGS: Post surgical changes from an occipital craniectomy with encephalomalacia of the bilateral right > left cerebellum. Scattered T2 hyperintensities in the right occipital lobe. Trace amount of c ontrast enhancement at the craniectomy site is most likely granulation tissue. The brain otherwise sh ows normal morphology and signal characteristics. No abnormal diffusion restriction, susceptibility hypointensity, is present. The ventricles are normal in size. The midline structures are intact. The major intracranial flow voids are present. The aerated spaces are unremarkable. The orbital contents and extracranial soft tissues appear normal. IMPRESSION: Scattered T2 hyperintensities in the right occipital lobe most likely old infarct. No diffusion restr iction seen. Post surgical changes from an occipital craniectomy with encephalomalacia of the bilateral right > le ft cerebellum. Trace amount of contrast enhancement at the craniectomy site is most likely granulati on tissue.
[2025-03-11] MEDS: DOCUSATE SOD 100 MG CAP PO SCH (10:00)
[2025-03-11] MEDS: PANTOPRAZOLE 40 MG/10 ML VIAL INJ IV SCH (10:06)
[2025-03-11] MEDS: amLODIPine BESYLATE 5 MG TAB PO SCH (10:07)
[2025-03-11] MEDS: SODIUM CHLORIDE 0.9% 1,000 ML IV SCH (11:00)
[2025-03-11] MEDS: HYDROcodone-ACET 10/325MG TAB PO PRN (11:50)
[2025-03-11] MEDS: levETIRAcetam 500 MG TAB PO ONE (12:30)
[2025-03-11] MEDS: DexAMETHasone INJECTION 10 MG in D5W 5% 50 ML IV ONE (12:31)
[2025-03-11 13:00] VITALS: BP 135/75; PULSE 89; RESP 18; TEMP 98; O2SAT 95
[2025-03-11] MEDS: METOCLOPRAMIDE HCL 10 MG TAB PO SCH (13:00)
--- NOTE | 2025-03-11 13:21 | DVHPNRES ---
Progress Note Date Seen: Mar 11, 2025 Resident Creating Document: LJ TUBBS RESIDENT Medical Necessity Reason Pt with a Central, PICC or Fol: No Subjective Review of Systems Elma Grace is a 45-year-old female patient who presents to the ED with chief complaint of painless hematochezia with normal bowel movements which started today, preceded by abdominal pain and nausea for two days before her admission. During her weight in the ED she presented right-sided facial numbness associated with high blood pressure. Patient reports history of craniotomy due to brain tumor with sequela of left facial droop. Denies fever, chills, syncope, palpitation, chest pain, dyspnea, dysuria, recent travel, sick contacts, previous history of endoscopies, diarrhea and other motor or sensory deficits. 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 Pancreatitis. Surgical history: Bilateral tubal ligation 2007, hysterectomy on 11/2024, craniectomy with tumor resection 2010 in 2011 Family history: Noncontributory Social history: Lives in [place] with father, (he is next of kin) and children. Denies current tobacco, alcohol and other drug abuse. Allergies: Lisinopril Home medication: Atorvastatin 40 mg p.o. daily, ibuprofen p.r.n., docusate p.r.n., ferrous sulfate, amlodipine 5 mg p.o. daily Patient is seen and examined at bedside. Complaining of mild headache. She will complaining of mild residual right-sided facial weakness, no motor or sensory deficits of lower or upper extremity, no bowel or bladder complaints. ROS Constitutional: Denies fever no chills no feeling of malaise HEENT: Denies headache, ear pain, ear discharges, conjunctivitis, nasal discharge throat pain Cardiovascular: Denies chest pain, palpitation, orthopnea, PND, or pedal edema Respiratory: Denies shortness of breath, cough cough, sputum production, hemoptysis, GI: Denies abdominal pain, nausea, vomiting, diarrhea, hematemesis, hematochezia, : Denies frequency, urgency, hematuria, Endocrine: Denies unintentional weight gain or weight loss, feeling of hot flashes, Crow: Denies easy bruising, bleeding disorders, epistaxis Musculoskeletal: Denies joint pains, muscle aches Psych: No evidence of depression, juan, suicidal ideation Objective vital signs Vital Sign Date Time Temp Pulse Resp B/P (MAP) Pulse Ox O2 Delivery O2 Flow Rate FiO2 03/11/25 10:07 156/92 03/11/25 05:00 90 18 94 03/11/25 04:19 Room Air* 0 21 03/11/25 04:19 97.7 97.7 Total Intake and Output 03/10/25 03/10/25 03/11/25 15:00 23:00 07:00 Intake Total 50 ml Balance 50 ml medications Current Medications Medications Dose Ordered Sig/Axel Route Start Time Stop Time Status Last Admin Dose Admin Lorazepam 0.5 mg Q6HP PRN PO 03/11/25 02:15 Acetaminophen 650 mg Q6HP PRN PO 03/11/25 02:15 Ondansetron HCl 4 mg Q4HP PRN IV 03/11/25 02:15 Morphine Sulfate 2 mg Q4HPRN PRN IV 03/11/25 02:15 Docusate Sodium 100 mg BID PO 03/11/25 10:00 Ferrous Sulfate 325 mg TID PO 03/11/25 06:00 03/11/25 13:00 325 MG Ibuprofen 800 mg Q8HP PRN PO 03/11/25 02:15 Amlodipine Besylate 10 mg DAILY PO 03/11/25 10:00 03/11/25 10:07 10 MG Atorvastatin Calcium 40 mg HS PO 03/11/25 22:00 Pantoprazole Sodium 40 mg DAILY IV 03/11/25 10:00 03/11/25 10:06 40 MG Ceftriaxone Sodium 50 ml @ 100 mls/hr DAILY@09 IV 03/12/25 09:00 Acetaminophen/ Hydrocodone Bitart 1 tab Q8HP PRN PO 03/11/25 10:00 03/11/25 11:50 1 TAB Aspirin 81 mg DAILY PO 03/12/25 10:00 Levetiracetam 500 mg BID PO 03/11/25 22:00 Dexamethasone Sodium Phosphate 10 mg/Dextrose 51 ml @ 204 mls/hr DAILY IV 03/12/25 10:00 Sodium Chloride 1,000 ml @ 100 mls/hr Q10H IV 03/11/25 11:00 03/11/25 11:00 100 MLS/HR Metoclopramide HCl 15 mg Q8HR PO 03/11/25 14:00 03/11/25 13:00 15 MG Examination General Appearance: Cooperative. Well developed. Well nourished. NAD Head Exam: Normal inspection Neck Exam: Normal inspection. Non-tender. Normal alignment Pulmonary/Respiratory: Chest non-tender. Clear bilateral breath sounds Cardiovascular/Chest: Regular rate and rhythm. No murmurs. No JVD. Peripheral Pulses: 2+ Radial (R). 2+ Radial (L). 2+ Pedal (R). 2+ Pedal (L) Abdominal Exam: Normal bowel sounds. Soft. Nontender. No hepatospenomegaly. No masses Ankle Exam: Negative ankle edema Lower extremities: Negative lower extremity edema Neuro/Mental Status: A&O x4. Coherent, residual left-sided facial drooping, no motor or sensory deficits, reactive pupil, all other cranial nerves intact. Thoughts/Psych: Normal thought pattern. Appropriate mood and affect. Good judgement and insight Appearance: In no acute distress Skin Exam: Normal inspection. Normal color. Warm. Dry laboratory and microbiology Laboratory Tests 03/11/25 05:45 Test 03/11/25 05:45 Range/Units Serum Glucose 184 H 74-106 mg/dL Problem List/Assessment/Plan Problem List/Assessment/Plan Acute on chronic right occipital lobe CVA Residual left-sided numbness/paresthesia Right-sided headache ? Medication overdose, she takes [id number] ibuprofen as needed. History of ependymoma, status post surgical resection Lower GI bleed symptomatic by hematochezia Mild microcytic anemia, likely iron-deficiency anemia. UTI Hypertension Dyslipidemia History of steroid induced diabetes History of CVA History of uterine fibroids status post hysterectomy History of constipation Plan/recommendation -reviewed MRI which showed possible right occipital stroke likely old infarct. Continue with aspirin 81 mg p.o. daily, atorvastatin 40 mg p.o. daily. -IV Decadron 10 mg per neurology -seizure : Keppra 500 mg p.o. b.i.d.. Follow up Neurology recommendation. -reviewed brain MRI:Scattered T2 hyperintensities in the right occipital lobe most likely old infarct. No diffusion restriction seen.Post surgical changes from an occipital craniectomy with encephalomalacia of the bilateral right > left cerebellum. -microcytic anemia: Ferrous sulfate 325 mg p.o. daily -acute fluid with normal saline 100 mL/hour -PUD prophylaxis with Protonix -DVT prophylaxis with SCD: Avoid anticoagulation given possible hematochezia. GI consultation has been done for hematochezia. Stool occult pending. Goals of care discussed greater than 24 minutes, full code status. Plan discussed with Dr. Golden Plan discussed with: Patient, Other (RN) Date of Service: Mar 11, 2025 Billing Provider: MIRI GOLDEN MD Common Visit Codes: [id number] INP/OBS CARE(HIGH) LJ TUBBS RESIDENT Mar 11, 2025 13:21 MIRI GOLDEN MD Mar 11, 2025 13:57
[2025-03-11 16:10] LABS: Hemoglobin 12.3 g/dL (12.2-16.2)
[2025-03-11 16:14] LABS: Hematocrit 39.1 % (36.0-46.0)
[2025-03-11] MEDS ORDERED: PANT40TA2 PO (16:37)
[2025-03-11 16:42] VITALS: BP 130/75; PULSE 90; RESP 18; TEMP 97.6; O2SAT 94
--- NOTE | 2025-03-11 17:20 | DVHDSRES ---
Discharge Summary Date of Admission Resident Creating Document: LJ TUBBS RESIDENT Mar 11, 2025 at 02:04 Date of Discharge: Mar 11, 2025 Labs/Diagnostic Data: Laboratory Results Test 03/11/25 15:55 03/11/25 05:45 03/10/25 22:00 03/10/25 18:42 Hemoglobin 12.3 g/dL (12.2-16.2) Hematocrit 39.1 % (36.0-46.0) White Blood Count 9.4 10^3/uL (4.4-10.8) Red Blood Count 5.04 10^6/uL (4.0-5.20) Mean Corpuscular Volume 74.9 fL (80.0-100.0) Mean Corpuscular Hemoglobin 24.5 pg (28.0-32.0) Mean Corpuscular Hemoglobin Concent 32.7 g/dL (32.0-36.0) Red Cell Distribution Width 19.8 % (11.8-14.3) Platelet Count 362 10^3/uL (140-450) Mean Platelet Volume 9.2 fL (6.9-10.8) Neutrophils (%) (Auto) 90.0 % (37.0-80.0) Lymphocytes (%) (Auto) 8.5 % (10.0-50.0) Monocytes (%) (Auto) 1.3 % (0.0-12.0) Eosinophils (%) (Auto) 0.0 % (0.0-7.0) Basophils (%) (Auto) 0.2 % (0.0-2.0) Neutrophils # (Auto) 8.4 10 ^3/uL (1.6-8.6) Lymphocytes # (Auto) 0.8 10 ^3/uL (0.4-5.4) Monocytes # (Auto) 0.1 10 ^3/uL (0-1.3) Eosinophils # (Auto) 0 10 ^3/uL (0-0.8) Basophils # (Auto) 0 10 ^3/uL (0-0.2) Nucleated Red Blood Cells 0.0 % Platelet Estimate Adequate Large Platelets Few Hypochromasia (manual) Slight Poikilocytosis (manual) Slight Microcytosis Slight Ovalocytes Few Tiffany Cells Few Reticulocyte Count (auto) 1.19 % (0.5-1.5) Sodium Level 135 mmol/L (136-145) Potassium Level 4.5 mmol/L (3.5-5.1) Chloride Level 99 mmol/L (98-107) Carbon Dioxide Level 27 mmol/L (20-31) Anion Gap 9 (5-15) Blood Urea Nitrogen 14 mg/dL (9-23) Creatinine 1.05 mg/dL (0.550-1.02) Glomerular Filtration Rate Calc 66 mL/min (>90) BUN/Creatinine Ratio 13.3 (10.0-20.0) Serum Glucose 184 mg/dL (74-106) Hemoglobin A1c 6.1 % A1C (<5.7) Calcium Level 10.9 mg/dL (8.7-10.4) Phosphorus Level 3.0 mg/dL (2.4-5.1) Magnesium Level 1.9 mg/dL (1.6-2.6) Iron Level 43 ug/dL (50-170) Total Iron Binding Capacity 407 ug/dL (250-425) Percent Iron Saturation 10.6 % (15-50) Ferritin 4.7 ng/mL (10-291) Triglycerides Level 63 mg/dL (< 150) Cholesterol Level 222 mg/dL (< 200) LDL Cholesterol 166 mg/dL (< 100) HDL Cholesterol 52 mg/dL (40-59) Vitamin B12 Level 642 pg/mL (211-911) Vitamin D 25-Hydroxy 24.1 ng/mL (30.0-100) Folic Acid 10.07 ng/mL (>5.38) Thyroid Stimulating Hormone (TSH) 0.26 uIU/mL (0.55-4.78) Troponin I High Sensitivity < 3 ng/L (</=34) Urine Color Colorless (Yellow) Urine Clarity Clear (Clear) Urine pH 7.0 (5.0-9.0) Urine Specific [place] 1.014 (1.001-1.035) Urine Protein Negative (Negative) Urine Ketones Negative (Negative) Urine Blood Negative /uL (Negative) Urine Nitrite Negative (Negative) Urine Bilirubin Negative (Negative) Urine Urobilinogen Normal mg/dL (Negative) Urine Leukocyte Esterase 1+ /uL (Negative) Urine RBC 1 /hpf (0 - 4) Urine Microscopic WBC 2 /HPF (0-5) Urine Squamous Epithelial Cells Few /hpf (<5) Urine Bacteria None seen /hpf (None Seen) Urine Glucose Normal mg/dL (Normal) Urine Opiates Screen Neg (NEGATIVE) Urine Fentanyl Screen Neg (NEGATIVE) Urine Barbiturates Screen Neg (NEGATIVE) Urine Phencyclidine Screen Neg (NEGATIVE) Urine Amphetamines Screen Neg (NEGATIVE) Urine Benzodiazepines Screen Neg (NEGATIVE) Urine Cocaine Screen Neg (NEGATIVE) Urine Cannabinoids Screen Neg (NEGATIVE) Test 03/10/25 18:09 Prothrombin Time 10.5 sec (9.3-11.8) Prothrombin Time INR 0.99 (0.9-1.15) Activated Partial Thromboplast Time 25.9 SEC (24.5-34.5) Lactic Acid Level 0.6 mmol/L (0.4-2.0) Total Bilirubin 0.3 mg/dL (0.2-1.0) Aspartate Amino Transferase (AST) 21 U/L (13-40) Alanine Aminotransferase (ALT) 27 U/L (7-40) Alkaline Phosphatase 114 U/L (46-116) B-Type Natriuretic Peptide 11.59 pg/mL (0-100) Total Protein 7.2 g/dL (5.7-8.2) Albumin 4.3 g/dL (3.2-4.8) Lipase 32 U/L (12-53) Other Laboratory Tests 03/11/25 15:55 03/11/25 05:45 Brief Hx & Hospital Course: H&P:Elma Grace is a 45-year-old female patient who presents to the ED with chief complaint of painless hematochezia with normal bowel movements which started today, preceded by abdominal pain and nausea for two days before her admission. During her weight in the ED she presented right-sided facial numbness associated with high blood pressure. Patient reports history of craniotomy due to brain tumor with sequela of left facial droop. Denies fever, chills, syncope, palpitation, chest pain, dyspnea, dysuria, recent travel, sick contacts, previous history of endoscopies, diarrhea and other motor or sensory deficits. 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 Pancreatitis. Surgical history: Bilateral tubal ligation 2007, hysterectomy on 11/2024, craniectomy with tumor resection 2010 in 2011 Family history: Noncontributory Social history: Lives in [place] with father, (he is next of kin) and children. Denies current tobacco, alcohol and other drug abuse. Allergies: Lisinopril Home medication: Atorvastatin 40 mg p.o. daily, ibuprofen p.r.n., docusate p.r.n., ferrous sulfate, amlodipine 5 mg p.o. daily Hospital course: Patient underwent MRI brain with contrast Scattered T2 hyperintensities in the right occipital lobe most likely old infarct.Post surgical changes from an occipital craniectomy with encephalomalacia of the bilateral right > left cerebellum. Trace amount of contrast enhancement at the craniectomy site is most likely granulation tissue.. Neurologic consultation was done. Patient was given aspirin, statin, patient was given 1 dose of IV dexamethasone by Neurology for intractable headache, patient found to residual left-sided facial weakness. Patient was continue given home dose Keppra 5 mg p.o. b.i.d. given patient did not have any active GI bleed, no bowel movement, stable hemoglobin hematocrit, patient advised to follow up with primary care physician and patient will need to GI follow up for colonoscopy. Condition at Discharge: Stable Final Diagnosis/Problems List Acute on chronic right occipital lobe CVA Residual left-sided numbness/paresthesia Right-sided headache ?Medication overdose, she takes [id number] ibuprofen as needed. History of ependymoma, status post surgical resection ?Lower GI bleed symptomatic by hematochezia Mild microcytic anemia, likely iron-deficiency anemia. UTI Hypertension Dyslipidemia History of steroid induced diabetes History of CVA History of uterine fibroids status post hysterectomy History of constipation Discharge Disposition: Home Discharge Instruct/Medications Diet: Regular Activity: No Restrictions, As Tolerated Follow Up/Referral: -follow up with PCP in 1 week Medications: see prescription Discharge Statement: "Patient was advised to return to the ER or call 911 if any headaches, dizziness, shortness of breath, chest pain, abdominal pain, bleeding, fevers, or worsening of medical condition. Patient was counseled about treatment plan, medications, possible side effects, patientverbalized understanding. All questions were answered to the best of my ability. This discharge took greater then 30 minutes in planning, reviewing documentation, counseling the patient, and discussing with other team members." ASSESSMENT ASSESSMENT Assessment Acute on chronic right occipital lobe CVA Residual left-sided numbness/paresthesia Right-sided headache ?Medication overdose, she takes [id number] ibuprofen as needed. History of ependymoma, status post surgical resection ?Lower GI bleed symptomatic by hematochezia Mild microcytic anemia, likely iron-deficiency anemia. UTI Hypertension Dyslipidemia History of steroid induced diabetes History of CVA History of uterine fibroids status post hysterectomy History of constipation Date of Service: Mar 11, 2025 Billing Provider: MIRI SHAHID MD Common Visit Codes: 85618-RNC/OBS DISCH DAY >30min LJ TUBBS RESIDENT Mar 11, 2025 17:20 MIRI SHAHID MD Mar 12, 2025 18:56
[2025-03-11 18:39] VITALS: BP 128/75; PULSE 88; RESP 18; TEMP 98; O2SAT 100
[2025-03-11] MEDS ORDERED: ATORVASTATIN 20 MG TAB PO SCH (22:00)
[2025-03-11] MEDS ORDERED: levETIRAcetam 500 MG TAB PO SCH (22:00)
[2025-03-12] MEDS ORDERED: cefTRIAXone 1GM/50ML D5W 50 ML IV SCH (09:00)
[2025-03-12] MEDS ORDERED: ASPirin-EC 81 mg tab PO SCH (10:00)
[2025-03-12] MEDS ORDERED: DexAMETHasone INJECTION 10 MG in D5W 5% 50 ML IV SCH (10:00)
== END 2025-03-11 18:40 | disposition home or self-care (01) | DRG 917 ==
LOC: ER 17:31 → OVERFLOW 03-11 02:04
PROVIDERS: ADMIT Internal Medicine; ATTEND Internal Medicine
DX: T39.311A Poisoning by propionic acid derivatives, accidental (unintentional), initial encounter (principal); I63.9 Cerebral infarction, unspecified; K92.2 Gastrointestinal hemorrhage, unspecified; N39.0 Urinary tract infection, site not specified; D50.9 Iron deficiency anemia, unspecified; I10 Essential (primary) hypertension; E78.5 Hyperlipidemia, unspecified; G89.4 Chronic pain syndrome; G93.89 Other specified disorders of brain; G40.909 Epilepsy, unspecified, not intractable, without status epilepticus; E11.9 Type 2 diabetes mellitus without complications; T50.995A Adverse effect of other drugs, medicaments and biological substances, initial encounter; G44.40 Drug-induced headache, not elsewhere classified, not intractable; K59.00 Constipation, unspecified; Z90.710 Acquired absence of both cervix and uterus; Z98.51 Tubal ligation status; Z79.899 Other long term (current) drug therapy; Z79.82 Long term (current) use of aspirin; Y92.89 Other specified places as the place of occurrence of the external cause; Z86.73 Personal history of transient ischemic attack (TIA), and cerebral infarction without residual deficits; Z82.5 Family history of asthma and other chronic lower respiratory diseases
CPT/HCPCS: 36415; 70450; 70496; 70498; 70553; 71045; 74176; 80048; 80053; 80061; 80307; 81001; 82306; 82607; 82728; 82746; 83036; 83540; 83550; 83605; 83690; 83735; 83880; 84100; 84443; 84484; 85014; 85018; 85025; 85045; 85610; 85730; 87086; 99291; G0378; J1100; J2470; J7060

== ENCOUNTER 2025-05-05 11:10 | Outpatient (CLI) | payer OTHER ==
[~2025-05-05 11:10] MED LIST changes: -AUG875T PO; -LEVO500T91 PO; -METR-344 PO; +PANT40TA2 PO
[2025-05-05 11:41] LABS: Basophils # (auto) 0 10 ^3/uL (0-0.2); Basophils % (auto) 0.8 % (0.0-2.0); Eosinophils # (auto) 0.1 10 ^3/uL (0-0.8); Eosinophils % (auto) 2.7 % (0.0-7.0); Hematocrit 34.9 % (36.0-46.0); Hemoglobin 11.8 g/dL (12.2-16.2); Lymphocytes # (auto) 1.8 10 ^3/uL (0.4-5.4); Lymphocytes % (auto) 32.5 % (10.0-50.0); Mean Corpuscular Hgb Conc. 33.7 g/dL (32.0-36.0); Mean Corpuscular Volume 77.4 fL (80.0-100.0); Monocytes # (auto) 0.4 10 ^3/uL (0-1.3); Monocytes % (auto) 8.2 % (0.0-12.0); Neutrophils % (auto) 55.8 % (37.0-80.0); Nucleated Red Blood Cells % 0.2 %; Platelet Count (auto) 333 10^3/uL (140-450); Red Blood Cells 4.51 10^6/uL (4.0-5.20); Red Cell Distribution Width 17.9 % (11.8-14.3); Urine Bacteria FEW /hpf (None Seen); Urine Blood Negative /uL (Negative); Urine Clarity Ex.Turbid (Clear); Urine Color Light-Orange (Yellow); Urine Mucus FEW (None Seen); Urine Protein, UAD 1+ (Negative); Urine Specific Gravity 1.029 (1.001-1.035); Urine Squamous Epithelial Cell MANY /hpf (<5); Urine Urobilinogen Normal (Negative); Urine WBC 18 /HPF (0-5); Urine pH 5.5 (5.0-9.0); White Blood Cell 5.4 10^3/uL (4.4-10.8)
[2025-05-05 12:16] LABS: Alanine Aminotransferase 15 U/L (7-40); Albumin 4.1 g/dL (3.2-4.8); Alkaline Phosphatase 108 U/L (46-116); Anion Gap 9 (5-15); Aspartate Aminotransferase 10 U/L (13-40); BUN/Creatinine Ratio 13.5 (10.0-20.0); Bilirubin, Total 0.4 mg/dL (0.2-1.0); Blood Urea Nitrogen 12 mg/dL (9-23); Calcium 9.6 mg/dL (8.7-10.4); Carbon Dioxide 28 mmol/L (20-31); Chloride 105 mmol/L (98-107); Cholesterol 170 mg/dL (< 200); Glucose 136 mg/dL (74-106); HDL Cholesterol 31 mg/dL (40-59); LDL Cholesterol 129 mg/dL (< 100); Potassium 3.8 mmol/L (3.5-5.1); Sodium 142 mmol/L (136-145); Total Protein 6.8 g/dL (5.7-8.2); Triglycerides 90 mg/dL (< 150)
== END 2025-05-05 17:00 | disposition home or self-care (01) ==
LOC: LAB 11:10
PROVIDERS: ATTEND Internal Medicine
DX: I12.9 Hypertensive chronic kidney disease with stage 1 through stage 4 chronic kidney disease, or unspecified chronic kidney disease (principal); N18.2 Chronic kidney disease, stage 2 (mild); E78.5 Hyperlipidemia, unspecified; E66.01 Morbid (severe) obesity due to excess calories; E55.9 Vitamin D deficiency, unspecified; R35.89 Other polyuria; D50.9 Iron deficiency anemia, unspecified; R63.1 Polydipsia; R73.03 Prediabetes; Z00.01 Encounter for general adult medical examination with abnormal findings; Z13.1 Encounter for screening for diabetes mellitus
CPT/HCPCS: 36415; 80053; 80061; 81001; 82306; 83036; 84439; 84443; 85025

== ENCOUNTER 2025-05-08 13:19 | Emergency (ER) | payer OTHER ==
[~2025-05-08] VITALS: Ht 165.1 cm; Wt 106.7 kg
--- NOTE | 2025-05-08 13:34 | ED.PDOC ---
History of Present Illness HPI Comments 45-year-old female presents with a chief complaint of headache and photophobia. Patient reports that she had a craniotomy before in the past and had a tumor resected. Patient mentions that she is unsure if the tumor is completely gone. Patient reports that she has been using Ibuprofen, but has had no relief of symptoms. Patient also is experiencing light sensitivity. Time Seen by MD: 13:26 Primary Care Provider: unknown Reviewed Notes: Medications, Allergies Allergies: Coded Allergies: Lisinopril (Unverified Allergy, Severe, facial edema, 08/25/24) Home Meds Active Scripts Pantoprazole Sodium Sesquihydr (Protonix) 40 Mg Tab, 40 MG PO DAILY for 25 Days, #25 TAB Prov:LJ TUBBS RESIDENT 03/11/25 Docusate Sodium (Colace) 100 Mg Cap, 1 CAP PO BID, #30 CAP Prov:CHARLIE RANDLE DO 11/17/24 Ferrous Sulfate (Ferrous Sulfate) 325 Mg Tab, 325 MG PO TID, #60 TAB Prov:CHARLIE RANDLE DO 11/14/24 Ibuprofen Micronized (Ibuprofen) 800 Mg Tab, 800 MG PO Q8HP PRN, #40 TAB Prov:CHARLIE RANDLE DO 11/14/24 Hydrocodone-Acetaminophen (Hydrocodone Bitartrate/AC 10-325 mg) 1 Tab Tab, 1 TAB PO Q6HP PRN for 5 Days, #20 TAB Prov:CHARLIE RANDLE DO 11/14/24 Reported Medications Amlodipine Besylate (Amlodipine Besylate) 10 Mg Tab, 10 MG PO DAILY, TAB 08/25/24 Atorvastatin Calcium (Lipitor) 40 Mg Tab, 40 MG PO DAILY, TAB 08/25/24 Information Source: Patient Mode of Arrival: Ambulatory Severity: Moderate Timing: Days Duration: Since onset Prehospital treatment: None Past Medical History PAST MEDICAL HISTORY: CVA, DM, High Lipids, HTN, Seizures Surgical History: Hysterectomy, Tubal Ligation INSPECTOR PACKAGER History: No Pertinent INSPECTOR PACKAGER History Family History Family History: Reviewed,noncontributory to illness Social History Smoker: Non-Smoker Alcohol: Occasionally Drugs: Denies Drug Use Lives In: Home Constitutional: denies: chills, diaphoresis, fatigue, fever, malaise, sweats, weakness, others EENTM: reports: photophobia; denies: blurred vision, double vision, ear bleeding, ear discharge, ear drainage, ear pain, ear ringing, eye pain, eye redness, hearing loss, mouth pain, mouth swelling, nasal discharge, nose bleeding, nose congestion, nose pain, tearing, throat pain, throat swelling, voice changes, others Respiratory: denies: cough, hemoptysis, orthopnea, SOB at rest, shortness of breath, SOB with excertion, stridor, wheezing, others Cardiovascular: denies: chest pain, dizzy spells, diaphoresis, Dyspnea on exertion, edema, irregular heart beat, left arm pain, lightheadedness, palpitations, PND, syncope, others Gastrointestinal: denies: abdomen distended, abdominal pain, blood streaked bowels, constipated, diarrhea, dysphagia, difficulty swallowing, hematemesis, melena, nausea, poor appetite, poor fluid intake, rectal bleeding, rectal pain, vomiting, others Genitourinary: denies: abnormal vagina bleeding, burning, dyspareunia, dysuria, flank pain, frequency, hematuria, incontinence, pain, , vagina discharge, urgency, others Neurological: reports: headache; denies: dizziness, fainting, left sided numbness, left sided weakness, numbness, paresthesia, pre-existing deficit, right sided numbness, right sided weakness, seizure, speech problems, tingling, tremors, weakness, others Musculoskeletal: denies: back pain, gout, joint pain, joint swelling, muscle pain, muscle stiffness, neck pain, others Integumetry: denies: bruises, change in color, change in hair/nails, dryness, laceration, lesions, lumps, rash, wounds, others Allergic/Immunocompromised: denies: Difficulty Healing, Frequent Infections, Hives, Itching, others Hematologic/Lymphatic: denies: anemia, blood clots, easy bleeding, easy bruising, swollen glands, others Endocrine: denies: excessive hunger, excessive sweating, excessive thirst, excessive urination, flushing, intolerance to cold, intolerance to heat, unexplained weight gain, unexplained weight loss, others Psychiatric: denies: anxiety, bipolar disorder, depression, hopeless, panic disorder, schizophrenia, sleepless, suicidal, others All Other Systems: Reviewed and Negative Physical Exam General Appearance: No Apparent Distress, Normal HEENT: Normal ENT Inspection, Pharynx Normal, TMs Normal Neck: Full Range of Motion, Non-Tender, Normal, Normal Inspection Respiratory: Chest Non-Tender, Lungs Clear, No Accessory Muscle Use, No Respiratory Distress, Normal Breath Sounds Cardiovascular: No Edema, No JVD, No Murmur, No Gallop, Normal Peripheral Pulses, Regular Rate/Rhythm Breast Exam: Deferred Gastrointestinal: No Organomegaly, Non Tender, No Pulsatile Mass, Normal Bowel Sounds, Soft Genitalia: Deferred Pelvic: Deferred Rectal: Deferred Extremities: No calf tenderness, Normal capillary refill, Normal inspection, Normal range of motion, Non-tender, No pedal edema Musculoskeletal : Apperance: Normal Neurologic: Alert, canal equipment mechanic II-XII nml as Tested, No Motor Deficits, Normal Affect, Normal Mood, No Sensory Deficits Cerebellar Function: Normal Reflexes: Normal Skin: Dry, Normal Color, Warm Lymphatic: No Adenopathy Was a procedure done? Was a procedure done?: No Differential Dx Considerations may include: intracranial mass, intracranial bleed, cephalgia, meningitis X-Ray, Labs, Meds, VS Vital Signs Date Time Temp Pulse Resp B/P (MAP) Pulse Ox O2 Delivery O2 Flow Rate FiO2 05/08/25 14:00 84 18 95 Room Air* 0 21 05/08/25 14:00 98.4 84 18 154/98 (116) 95 98.4 05/08/25 13:55 154/98 05/08/25 13:32 97.8 88 18 157/107 (124) 95 97.8 Lab Test 05/08/25 13:41 Range/Units White Blood Count 5.6 4.4-10.8 10^3/uL Red Blood Count 4.78 4.0-5.20 10^6/uL Hemoglobin 12.3 12.2-16.2 g/dL Hematocrit 37.3 36.0-46.0 % Mean Corpuscular Volume 78.0 L 80.0-100.0 fL Mean Corpuscular Hemoglobin 25.8 L 28.0-32.0 pg Mean Corpuscular Hemoglobin Concent 33.1 32.0-36.0 g/dL Red Cell Distribution Width 17.8 H 11.8-14.3 % Platelet Count 380 140-450 10^3/uL Mean Platelet Volume 8.7 6.9-10.8 fL Neutrophils (%) (Auto) 61.0 37.0-80.0 % Lymphocytes (%) (Auto) 29.2 10.0-50.0 % Monocytes (%) (Auto) 6.8 0.0-12.0 % Eosinophils (%) (Auto) 2.2 0.0-7.0 % Basophils (%) (Auto) 0.8 0.0-2.0 % Neutrophils # (Auto) 3.4 1.6-8.6 10 ^3/uL Lymphocytes # (Auto) 1.6 0.4-5.4 10 ^3/uL Monocytes # (Auto) 0.4 0-1.3 10 ^3/uL Eosinophils # (Auto) 0.1 0-0.8 10 ^3/uL Basophils # (Auto) 0 0-0.2 10 ^3/uL Nucleated Red Blood Cells 0.1 % Sodium Level 141 136-145 mmol/L Potassium Level 3.8 3.5-5.1 mmol/L Chloride Level 105 98-107 mmol/L Carbon Dioxide Level 30 20-31 mmol/L Anion Gap 6 5-15 Blood Urea Nitrogen 13 9-23 mg/dL Creatinine 0.93 0.550-1.02 mg/dL Glomerular Filtration Rate Calc 76 >90 mL/min BUN/Creatinine Ratio 14.0 10.0-20.0 Serum Glucose 146 H 74-106 mg/dL Calcium Level 9.9 8.7-10.4 mg/dL Current Medications Medications (Trade) Dose Ordered Sig/Axel Route Start Time Stop Time Status Last Admin Fentanyl Citrate 12.5 mcg ONCE ONCE IV 05/08/25 13:30 05/08/25 13:31 DC 05/08/25 13:55 Time of 1ST Reevaluation: 13:56 Reevaluation 1ST: Unchanged Time of 2ND Reevaluation: 14:37 Reevaluation 2ND: Resolved Patient Education/Counseling: Diagnosis, Treatment, Prognosis, Need For Follow Up Family Education/Counseling: No Family Present Comments pt is totally pain free. her workup is unremarkable. pt is stable for discharge Departure 1 Departure Time of Disposition: 14:38 Impression: Primary Impression: HEADACHE Disposition: 01 HOME / SELF CARE / HOMELESS Condition: Good Discharged With: Self Critical Care Note Critical Care Time?: Yes (55 min-critical care time only) Critical care comment: due to concerns for deterioration of patient's condition, the care required my highest level of attention and readiness. i assessed the patient's condition, reviewed relevant documents, communicated with medical personnel, ordered the proper tests and treatments, reassessed for results and response to treatments, spoke to family and consultants and formulated a plan of care Stability Stability form required: No Heart Score Heart Score: Heart Score Response (Comments) Value History N/A 0 EKG N/A 0 Age N/A 0 Risk Factors N/A 0 Troponin N/A 0 Total 0 I personally scribed for NEHEMIAS MCINTOSH MD ([email or web address]) on 05/08/25 at 13:34. Electronically submitted by Tam Hudson ([email or web address]). NEHEMIAS MCINTOSH MD May 08, 2025 13:34
[2025-05-08] MEDS: fentaNYL CITRATE 100 MCG/2 ML VL IV ONE (13:55)
--- NOTE | 2025-05-08 13:58 | DVH ---
EXAM: CT HEAD WITHOUT CONTRAST INDICATION: worsened headache TECHNIQUE: CT of the head without intravenous contrast. Radiation Dose : 1. Head: CT Dose: CTDI volume is 57.36 mGy. Dose-length product is 1015.51 mGy*cm The dose indicators for CT are the volume Computed Tomography (CT) Dose Index (CTDIvol) and the Dose Length Product (DLP), and are measured in units of mGy and mGy-cm, respectively. These indicators are not patient dose, but values generated from the CT scanner acquisition factors. The report includes radiation exposure data for exposures received during this examination. COMPARISON: CT STROKE CTH on DOS: 03/10/25 FINDINGS: There is no evidence of acute intracranial hemorrhage, extra-axial collection, mass effect, midline s hift, herniation or hydrocephalus. Right cerebellar encephalomalacia. The ventricles, sulci and cisterns are age appropriate. The bautista-white differentiation is intact. Patchy periventricular and subcortical white matter hypoattenuation is nonspecific but may be related to small vessel ischemic disease. The visualized paranasal sinuses and mastoid air cells are clear. Suboccipital craniotomy. IMPRESSION: No acute intracranial abnormality. Radiation optimization: All CT scans at this facility use at least one of these dose optimization jeimy hniques: automated exposure control mA and/or kV adjustment per patient size (includes targeted exam s where dose is matched to clinical indication) or iterative reconstruction.
[2025-05-08 13:59] LABS: Eosinophils # (auto) 0.1 10 ^3/uL (0-0.8); Mean Corpuscular Hgb Conc. 33.1 g/dL (32.0-36.0); Monocytes # (auto) 0.4 10 ^3/uL (0-1.3); Red Cell Distribution Width 17.8 % (11.8-14.3)
[2025-05-08 14:00] VITALS: PULSE 84; RESP 18; O2SAT 95
[2025-05-08 14:01] LABS: Basophils # (auto) 0 10 ^3/uL (0-0.2); Basophils % (auto) 0.8 % (0.0-2.0); Eosinophils % (auto) 2.2 % (0.0-7.0); Hematocrit 37.3 % (36.0-46.0); Hemoglobin 12.3 g/dL (12.2-16.2); Lymphocytes # (auto) 1.6 10 ^3/uL (0.4-5.4); Lymphocytes % (auto) 29.2 % (10.0-50.0); Mean Corpuscular Hemoglobin 25.8 pg (28.0-32.0); Monocytes % (auto) 6.8 % (0.0-12.0); Neutrophils # (auto) 3.4 10 ^3/uL (1.6-8.6); Nucleated Red Blood Cells % 0.1 %; Platelet Count (auto) 380 10^3/uL (140-450); Red Blood Cells 4.78 10^6/uL (4.0-5.20); White Blood Cell 5.6 10^3/uL (4.4-10.8)
[2025-05-08 14:09] LABS: Chloride 105 mmol/L (98-107); Potassium 3.8 mmol/L (3.5-5.1); Sodium 141 mmol/L (136-145)
[2025-05-08 14:10] LABS: Anion Gap 6 (5-15); Calcium 9.9 mg/dL (8.7-10.4); Carbon Dioxide 30 mmol/L (20-31)
[2025-05-08 14:15] LABS: Blood Urea Nitrogen 13 mg/dL (9-23)
[2025-05-08 14:16] LABS: Glucose 146 mg/dL (74-106)
[2025-05-08 14:54] VITALS: BP 138/91; PULSE 68; RESP 16; TEMP 98; O2SAT 95
== END 2025-05-08 14:55 | disposition home or self-care (01) ==
LOC: ER 13:19
DX: R51.9 Headache, unspecified (principal); H53.149 Visual discomfort, unspecified; I10 Essential (primary) hypertension; E11.9 Type 2 diabetes mellitus without complications; E78.5 Hyperlipidemia, unspecified; Z86.73 Personal history of transient ischemic attack (TIA), and cerebral infarction without residual deficits; Z90.710 Acquired absence of both cervix and uterus; Z98.51 Tubal ligation status; Z79.899 Other long term (current) drug therapy; Z88.8 Allergy status to other drugs, medicaments and biological substances
CPT/HCPCS: 36415; 70450; 80048; 85025; 96374; 99285; J3010

== ENCOUNTER 2025-05-23 10:01 | Emergency (ER) | payer OTHER ==
[~2025-05-23] VITALS: Ht 165.1 cm; Wt 106.8 kg
--- NOTE | 2025-05-23 10:33 | ECG ---
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
--- NOTE | 2025-05-23 10:35 | ED.PDOC ---
SOB-HPI HPI Comments 45y F who presents to the ED for chief complaint of cough. - pt states she has been having cough since yesterday - pt states she has noticed soreness across her chest when she attempts to take a deep breath - pt states the cough is dry and no associated mucus - pt denies any associated chest pain, fever, chills, nausea, vomiting or associated symptoms - pt denies any recent sick contacts - pt otherwise has noted stable vitals in the ED with noted 02 sat of 96% on room air, temp 98.1F, BP 117/76 and RR 16 past medical history: HTN, HLD, seizures, past surgical history: denies allergies: lisinopril medications: amlodipine, keppra, atorvastatin social history: denies tobacco use, endorses ETOH use, denies drug use HPI: Poor Historian. Past Medical History: Past Surgical History: REVIEW OF SYSTEMS: CONSTITUTIONAL: Denies acute: fever, diaphoresis, chills, generalized weakness. HEAD: Denies acute: headache, photophobia Eyes: Denies acute: Double vision, vision loss, eye pain, eye discharge. EARS: Denies acute: tinnitus, hearing loss, ear discharge, ear pain, THROAT: Denies acute: sore throat, swelling, difficulty swallowing , pain with swallowing, change in voice. NECK: Denies acute: neck pain, neck swelling, stiff neck. HEART: Denies acute : chest pain, palpitations, LUNGS: Denies acute: SOB, wheezing, hemoptysis ABDOMEN: Denies acute: abdominal pain, Nausea, Vomiting, diarrhea, melena , hematemesis, hematochezia SKIN: Denies acute: rash, redness, lesions, itchiness. EXTREMITIES: Denies acute: calf pain, numbness, tingling, weakness, denies pain in extremity. Denies acute: Low back pain. Neuro: Denies acute: focal neurological deficit, motor or sensory focal neurological deficit, tremors, seizure like activity, confusion, dizziness, change in mental status, loss of bowel or bladder function, cauda equina like symptoms. : Denies acute: dysuria, hematuria, flank pain, increase in urinary frequency. PSYCH: Denies acute: hallucination, suicidal ideation, homicidal ideation. FEMALE: Denies acute: abnormal vaginal bleeding, foul odor, unusual discharge. PHYSICAL EXAM: General: ----no----acute distress, awake and alert. Head: normocephalic, atraumatic. Neck: supple, trachea is midline, no swelling. Throat: Normal phonation. Eyes:, no erythema, no purulent discharge, no proptosis, no icterus. Heart: regular rate, regular rhythm, no significant murmur appreciated. Lungs: no apparent respiratory distress, Able to speak in full sentences. No wheezing, no rhonchi, no crackles. No stridors Clear to auscultation bilaterally. Abdomen: non tender to palpation, non distended, soft, no guarding, no rebound, + bowel sounds. Neuro: Awake, Alert, oriented to name, self, situation, follows commands GCS=15. Speech is normal. Skin: no petechia, no purpura, no cyanosis, non-pale, not jaundice. Lower extremities: --no - Pitting edema no deformity, no focal swelling, no calf TTP. Makes eye contact. moves all four extremities. Face: no apparent facial droop. Ambulating in the ED independently. ED COURSE: DISCLAIMER: This medical document was created using an electronic medical record system with voice recognition software and computerized dictation system. Although this document has been carefully reviewed, there might still be some phonetic and typographical errors. Occasional wrong-word or "sound-alike" substitutions may have occurred due to the inherent limitations of voice recognition software. These areas are purely typographical due to imperfections of the software programs and do not reflect any compromise in the patient's medical care. Please read the chart carefully and recognize, using context, where these substitutions have occurred. Chief Complaint: Cough Time Seen by MD: 10:30 Primary Care Provider: unknown Reviewed notes: Medications, Allergies Information Source: Patient Mode of Arrival: Ambulatory Past Medical History PAST MEDICAL HISTORY: CVA, DM, High Lipids, HTN, Seizures Surgical History: Hysterectomy, Tubal Ligation DELIVERY TECHNICIAN History: No Pertinent DELIVERY TECHNICIAN History Family History Family History: Reviewed,noncontributory to illness Social History Smoker: Non-Smoker Alcohol: Occasionally Drugs: Denies Drug Use Lives In: Home Was a procedure done? Was a procedure done?: No X-Ray, Labs, Meds, VS Vital Signs Date Time Temp Pulse Resp B/P (MAP) Pulse Ox O2 Delivery O2 Flow Rate FiO2 05/23/25 13:23 98.1 78 18 139/94 (109) 95 98.1 05/23/25 13:23 78 18 95 Room Air 05/23/25 11:44 97.6 78 18 127/74 (91) 97 97.6 05/23/25 10:30 81 05/23/25 10:11 98.1 78 16 117/76 (90) 96 98.1 Lab Test 05/23/25 12:26 05/23/25 11:55 05/23/25 10:39 05/23/25 10:37 Range/Units Troponin I High Sensitivity < 3 L 7 </=34 ng/L White Blood Count 7.7 4.4-10.8 10^3/uL Red Blood Count 4.89 4.0-5.20 10^6/uL Hemoglobin 12.6 12.2-16.2 g/dL Hematocrit 38.5 36.0-46.0 % Mean Corpuscular Volume 78.8 L 80.0-100.0 fL Mean Corpuscular Hemoglobin 25.7 L 28.0-32.0 pg Mean Corpuscular Hemoglobin Concent 32.6 32.0-36.0 g/dL Red Cell Distribution Width 17.0 H 11.8-14.3 % Platelet Count 333 140-450 10^3/uL Mean Platelet Volume 9.0 6.9-10.8 fL Neutrophils (%) (Auto) 71.6 37.0-80.0 % Lymphocytes (%) (Auto) 14.6 10.0-50.0 % Monocytes (%) (Auto) 9.0 0.0-12.0 % Eosinophils (%) (Auto) 4.2 0.0-7.0 % Basophils (%) (Auto) 0.6 0.0-2.0 % Neutrophils # (Auto) 5.5 1.6-8.6 10 ^3/uL Lymphocytes # (Auto) 1.1 0.4-5.4 10 ^3/uL Monocytes # (Auto) 0.7 0-1.3 10 ^3/uL Eosinophils # (Auto) 0.3 0-0.8 10 ^3/uL Basophils # (Auto) 0 0-0.2 10 ^3/uL Nucleated Red Blood Cells 0.0 % Sodium Level 142 136-145 mmol/L Potassium Level 3.6 3.5-5.1 mmol/L Chloride Level 105 98-107 mmol/L Carbon Dioxide Level 30 20-31 mmol/L Anion Gap 7 5-15 Blood Urea Nitrogen 15 9-23 mg/dL Creatinine 0.92 0.550-1.02 mg/dL Glomerular Filtration Rate Calc 77 >90 mL/min BUN/Creatinine Ratio 16.3 10.0-20.0 Serum Glucose 95 74-106 mg/dL Calcium Level 10.0 8.7-10.4 mg/dL Total Bilirubin 0.8 0.2-1.0 mg/dL Aspartate Amino Transferase (AST) 16 <34 U/L Alanine Aminotransferase (ALT) 12 7-40 U/L Alkaline Phosphatase 129 H 46-116 U/L Total Protein 7.6 5.7-8.2 g/dL Albumin 4.6 3.2-4.8 g/dL Influenza Type A Antigen Negative Negative Influenza Type B Antigen Negative Negative SARS-CoV-2 Antigen (Rapid) Negative NEGATIVE [place] [id number] Ph: [phone] DIAGNOSTIC IMAGING Diagnostic Imaging Report : [id number] Signed PATIENT: RABIA KLINE JACCT: [id number] UNIT: [id number] : 1980 LOC: ER ROOM / BED: / AGE / SEX: 45 / F ADM STATUS: REG ER SERVICE 1026 ORDERING PHYSICIAN: JENNIFER AMARAL DO PROCEDURE(s): CXRP - CHEST PORTABLE REASON: cough/chest soar ORDER NUMBER(s): [id number], ACCESSION NUMBER(s): [id number] XY CHEST PORTABLE, HISTORY: cough/chest soar COMPARISON: XY CHEST XRAY 1 VIEW on DOS: 03/10/25, XY CHEST XRAY 1 VIEW on DOS: 11/16/24 XY CHEST XRAY 1 VIEW on DOS: 03/10/25, XY CHEST XRAY 1 VIEW on DOS: 11/16/24 TECHNICAL DATA: 1 view of the chest was obtained. FINDINGS: Lines and tubes: None Cardiomediastinal silhouette: normal Pulmonary vasculature: normal Lung expansion: normal Lung airspace: Lung interstitium: normal Pleura: normal Pneumothorax: no Bones: Unremarkable Other: no IMPRESSION: Left basilar subsegmental atelactasis. ATED BY: DEWEY ALMODOVAR MD DICTATED DATE/TIME: 05/23/25 1148 SIGNED BY: DEWEY ALMODOVAR MD SIGNED DATE/TIME: 05/23/25 1148 CC: Patient Education/Counseling: Diagnosis, Treatment Family Education/Counseling: No Family Present Departure 1 Departure Time of Disposition: 13:07 Impression: Primary Impression: Bronchitis Disposition: HOME / SELF CARE / HOMELESS Condition: Stable Additional Instructions: Additional instructions: You MUST follow-up with your primary care/family doctor in 1 to 2 days. If you are unable to see your primary care/family doctor, please return to our emergency room for re-assessment and re-evaluation in 1 to 2 days. Return to the emergency room here in our facility or to the nearest ER [facility] if your symptoms change or worsen. CONSULTATIONS: you MUST Follow-up for consultation as soon as possible with: --cardiology in 1-2 days. Please call for appointment. You MUST call the consultants office yourself to make an appointment. You may need to arrange that through your insurance and/or your primary/family doctor. If you are unable to see the gift consultant in 1 to 2 days, you must return to our emergency room (or any other ER of your choice) for re-assessment and re-nigel luation. Adequate fluid hydration. Below is a copy of your radiological report for follow up: [place] [id number] Ph: [phone] DIAGNOSTIC IMAGING Diagnostic Imaging Report : [id number] Signed PATIENT: RABIA KLINE ACCT: [id number] UNIT: [id number] : 1980 LOC: ER ROOM / BED: / AGE / SEX: 45 / F ADM STATUS: REG ER SERVICE 1026 ORDERING PHYSICIAN: JENNIFER AMARAL DO PROCEDURE(s): CXRP - CHEST PORTABLE REASON: cough/chest soar ORDER NUMBER(s): [id number], ACCESSION NUMBER(s): [id number] XY CHEST PORTABLE, HISTORY: cough/chest soar COMPARISON: XY CHEST XRAY 1 VIEW on DOS: 03/10/25, XY CHEST XRAY 1 VIEW on DOS: 11/16/24 XY CHEST XRAY 1 VIEW on DOS: 03/10/25, XY CHEST XRAY 1 VIEW on DOS: 11/16/24 TECHNICAL DATA: 1 view of the chest was obtained. FINDINGS: Lines and tubes: None Cardiomediastinal silhouette: normal Pulmonary vasculature: normal Lung expansion: normal Lung airspace: Lung interstitium: normal Pleura: normal Pneumothorax: no Bones: Unremarkable Other: no IMPRESSION: Left basilar subsegmental atelactasis. ATED BY: DEWEY ALMODOVAR MD DICTATED DATE/TIME: 05/23/25 1148 SIGNED BY: DEWEY ALMODOVAR MD SIGNED DATE/TIME: 05/23/25 1148 CC: e-Prescriptions Azithromycin (Zithromax Tri-Syed) 500 Mg Tab 500 MG PO DAILY for 6 Days, #6 TAB Prov: JENNIFER AMARAL DO 05/23/25 Discharged With: Self Critical Care Note Critical Care Time?: No Heart Score Heart Score: Heart Score Response (Comments) Value History Slightly Suspicious 0 EKG Normal 0 Age 45-64 1 Risk Factors 1 or 2 risk factors 1 Troponin Normal limit 0 Total 2 I personally scribed for JENNIFER AMARAL DO ([email or web address]) on 05/23/25 at 10:35. Electronically submitted by Ramona Sims ([employer]). I personally scribed for JENNIFER AMARAL DO ([email or web address]) on 05/23/25 at 10:53. Electronically submitted by Ramona Sims ([employer]). I personally scribed for JENNIFER AMARAL DO ([email or web address]) on 05/23/25 at 14:29. Electronically submitted by Ramona Sims ([employer]). JENNIFER AMARAL DO May 23, 2025 10:35
[2025-05-23 11:01] LABS: Rapid Influenza A Negative (Negative); Rapid Influenza B Negative (Negative)
[2025-05-23 11:02] LABS: COVID19 ANTIGEN SOFIA FIA NEGATIVE (NEGATIVE)
[2025-05-23 11:20] LABS: Basophils # (auto) 0 10 ^3/uL (0-0.2); Basophils % (auto) 0.6 % (0.0-2.0); Eosinophils # (auto) 0.3 10 ^3/uL (0-0.8); Eosinophils % (auto) 4.2 % (0.0-7.0); Hematocrit 38.5 % (36.0-46.0); Hemoglobin 12.6 g/dL (12.2-16.2); Lymphocytes # (auto) 1.1 10 ^3/uL (0.4-5.4); Lymphocytes % (auto) 14.6 % (10.0-50.0); Mean Corpuscular Hemoglobin 25.7 pg (28.0-32.0); Mean Corpuscular Hgb Conc. 32.6 g/dL (32.0-36.0); Mean Corpuscular Volume 78.8 fL (80.0-100.0); Monocytes # (auto) 0.7 10 ^3/uL (0-1.3); Neutrophils # (auto) 5.5 10 ^3/uL (1.6-8.6); Neutrophils % (auto) 71.6 % (37.0-80.0); Platelet Count (auto) 333 10^3/uL (140-450); Red Blood Cells 4.89 10^6/uL (4.0-5.20); White Blood Cell 7.7 10^3/uL (4.4-10.8)
[2025-05-23 11:44] LABS: Alanine Aminotransferase 12 U/L (7-40); Albumin 4.6 g/dL (3.2-4.8); Anion Gap 7 (5-15); Aspartate Aminotransferase 16 U/L (<34); BUN/Creatinine Ratio 16.3 (10.0-20.0); Bilirubin, Total 0.8 mg/dL (0.2-1.0); Blood Urea Nitrogen 15 mg/dL (9-23); Carbon Dioxide 30 mmol/L (20-31); Chloride 105 mmol/L (98-107); Glucose 95 mg/dL (74-106); Potassium 3.6 mmol/L (3.5-5.1); Sodium 142 mmol/L (136-145); Total Protein 7.6 g/dL (5.7-8.2)
[2025-05-23 11:51] LABS: Alkaline Phosphatase 129 U/L (46-116)
--- NOTE | 2025-05-23 11:51 | DVH ---
XY CHEST PORTABLE, HISTORY: cough/chest soar COMPARISON: XY CHEST XRAY 1 VIEW on DOS: 03/10/25, XY CHEST XRAY 1 VIEW on DOS: 11/16/24 XY CHEST XRAY 1 VIEW on DOS: 03/10/25, XY CHEST XRAY 1 VIEW on DOS: 11/16/24 TECHNICAL DATA: 1 view of the chest was obtained. FINDINGS: Lines and tubes: None Cardiomediastinal silhouette: normal Pulmonary vasculature: normal Lung expansion: normal Lung airspace: Lung interstitium: normal Pleura: normal Pneumothorax: no Bones: Unremarkable Other: no IMPRESSION: Left basilar subsegmental atelactasis.
[2025-05-23] MEDS ORDERED: AZITTAB2 PO (13:09)
[2025-05-23 13:23] VITALS: BP 139/94; PULSE 78; RESP 18; TEMP 98.1; O2SAT 95
== END 2025-05-23 13:26 | disposition home or self-care (01) ==
LOC: ER 10:01
DX: J40 Bronchitis, not specified as acute or chronic (principal); E11.9 Type 2 diabetes mellitus without complications; E78.5 Hyperlipidemia, unspecified; I10 Essential (primary) hypertension; Z79.899 Other long term (current) drug therapy; Z86.73 Personal history of transient ischemic attack (TIA), and cerebral infarction without residual deficits; Z90.710 Acquired absence of both cervix and uterus; Z20.822 Contact with and (suspected) exposure to COVID-19
CPT/HCPCS: 36415; 71045; 80053; 84484; 85025; 87426; 87804; 93005

== ENCOUNTER 2025-07-18 21:30 | Emergency (ER) | payer MEDICAID, OTHER ==
[~2025-07-18] VITALS: Ht 165.1 cm; Wt 104.5 kg
[~2025-07-18 21:30] MED LIST changes: +AZITTAB2 PO
--- NOTE | 2025-07-18 22:19 | ED.PDOC ---
Musculoskeletal HPI Comments 38-year-old female came to ER for bilateral lower extremity swelling. Patient has history of hypertension, recently changed her medications to amlodipine. For the past 3 days noted worsening bilateral lower extremity swelling. Denies any edema. Denies any orthopnea, denies any chest pains or shortness a breath. Chief Complaint: Lower Extremity Time Seen by MD: 22:18 Primary Care Provider: unknown Reviewed Notes: Nurses Notes Allergies: Coded Allergies: Lisinopril (Unverified Allergy, Severe, facial edema, 08/25/24) Home Meds Active Scripts Azithromycin (Zithromax Tri-Syed) 500 Mg Tab, 500 MG PO DAILY for 6 Days, #6 TAB Prov:JENNIFER AMARAL DO 05/23/25 Pantoprazole Sodium Sesquihydr (Protonix) 40 Mg Tab, 40 MG PO DAILY for 25 Days, #25 TAB Prov:LJ TUBBS RESIDENT 03/11/25 Docusate Sodium (Colace) 100 Mg Cap, 1 CAP PO BID, #30 CAP Prov:CHARLIE RANDLE DO 11/17/24 Ferrous Sulfate (Ferrous Sulfate) 325 Mg Tab, 325 MG PO TID, #60 TAB Prov:CHARLIE RANDLE DO 11/14/24 Ibuprofen Micronized (Ibuprofen) 800 Mg Tab, 800 MG PO Q8HP PRN, #40 TAB Prov:CHARLIE RANDLE DO 11/14/24 Hydrocodone-Acetaminophen (Hydrocodone Bitartrate/AC 10-325 mg) 1 Tab Tab, 1 TAB PO Q6HP PRN for 5 Days, #20 TAB Prov:CHARLIE RANDLE DO 11/14/24 Reported Medications Amlodipine Besylate (Amlodipine Besylate) 10 Mg Tab, 10 MG PO DAILY, TAB 08/25/24 Atorvastatin Calcium (Lipitor) 40 Mg Tab, 40 MG PO DAILY, TAB 08/25/24 Information Source: Patient Mode of Arrival: Wheelchair Location: Bilateral Extremity Location: Leg Timing: Days Severity: Moderate Mechanism: Spontaneous Circumstances: Spontaneous Onset of Symptoms: Spontaneous Symptoms: Swelling Past Medical History PAST MEDICAL HISTORY: CVA, DM, High Lipids, HTN, Seizures Surgical History: Hysterectomy, Tubal Ligation JAVA WEB ARCHITECT History: No Pertinent JAVA WEB ARCHITECT History Family History Family History: Reviewed,noncontributory to illness Social History Smoker: Non-Smoker Alcohol: Occasionally Drugs: Denies Drug Use Lives In: Home Constitutional: denies: chills, diaphoresis, fatigue, fever, malaise, sweats, weakness, others EENTM: denies: blurred vision, double vision, ear bleeding, ear discharge, ear drainage, ear pain, ear ringing, eye pain, eye redness, hearing loss, mouth pain, mouth swelling, nasal discharge, nose bleeding, nose congestion, nose pain, photophobia, tearing, throat pain, throat swelling, voice changes, others Respiratory: denies: cough, hemoptysis, orthopnea, SOB at rest, shortness of breath, SOB with excertion, stridor, wheezing, others Cardiovascular: denies: chest pain, dizzy spells, diaphoresis, Dyspnea on exertion, edema, irregular heart beat, left arm pain, lightheadedness, palpitations, PND, syncope, others Gastrointestinal: denies: abdomen distended, abdominal pain, blood streaked bowels, constipated, diarrhea, dysphagia, difficulty swallowing, hematemesis, melena, nausea, poor appetite, poor fluid intake, rectal bleeding, rectal pain, vomiting, others Genitourinary: denies: abnormal vagina bleeding, burning, dyspareunia, dysuria, flank pain, frequency, hematuria, incontinence, pain, , vagina discharge, urgency, others Neurological: denies: dizziness, fainting, headache, left sided numbness, left sided weakness, numbness, paresthesia, pre-existing deficit, right sided n umbness, right sided weakness, seizure, speech problems, tingling, tremors, weakness, others Musculoskeletal: reports: others (Bilateral leg swelling); denies: back pain, gout, joint pain, joint swelling, muscle pain, muscle stiffness, neck pain Integumetry: denies: bruises, change in color, change in hair/nails, dryness, laceration, lesions, lumps, rash, wounds, others Allergic/Immunocompromised: denies: Difficulty Healing, Frequent Infections, Hives, Itching, others Hematologic/Lymphatic: denies: anemia, blood clots, easy bleeding, easy bruising, swollen glands, others Endocrine: denies: excessive hunger, excessive sweating, excessive thirst, excessive urination, flushing, intolerance to cold, intolerance to heat, unexplained weight gain, unexplained weight loss, others Psychiatric: denies: anxiety, bipolar disorder, depression, hopeless, panic disorder, schizophrenia, sleepless, suicidal, others Physical Exam General Appearance: No Apparent Distress, Normal HEENT: Normal ENT Inspection, Pharynx Normal, TMs Normal Neck: Full Range of Motion, Non-Tender, Normal, Normal Inspection Respiratory: Chest Non-Tender, Lungs Clear, No Accessory Muscle Use, No Respiratory Distress, Normal Breath Sounds Cardiovascular: No Edema, No JVD, No Murmur, No Gallop, Normal Peripheral Pulses, Regular Rate/Rhythm Breast Exam: Deferred Gastrointestinal: No Organomegaly, Non Tender, No Pulsatile Mass, Normal Bowel Sounds, Soft Genitalia: Deferred Pelvic: Deferred Rectal: Deferred Extremities: No calf tenderness, Normal capillary refill, Normal inspection, Normal range of motion, Non-tender, No pedal edema, Swelling (Bilateral legs) Musculoskeletal : Apperance: Normal Neurologic: Alert, side piece coverer II-XII nml as Tested, No Motor Deficits, Normal Affect, Normal Mood, No Sensory Deficits Cerebellar Function: Normal Reflexes: Normal Skin: Dry, Normal Color, Warm Lymphatic: No Adenopathy Was a procedure done? Was a procedure done?: No Differential Diagnosis EXT Differential Diagnosis: Cellulitis, CHF, Deep Vein Thrombosis, Other (Medication side effects from same child the adriana) X-Ray, Labs, Meds, VS Vital Signs Date Time Temp Pulse Resp B/P (MAP) Pulse Ox O2 Delivery O2 Flow Rate FiO2 07/18/25 21:32 98.0 76 16 142/79 97 98.0 Lab Test 07/19/25 00:26 Range/Units Sodium Level 139 136-145 mmol/L Potassium Level 3.7 3.5-5.1 mmol/L Chloride Level 104 98-107 mmol/L Carbon Dioxide Level 28 20-31 mmol/L Anion Gap 7 5-15 Blood Urea Nitrogen 9 9-23 mg/dL Creatinine 0.83 0.550-1.02 mg/dL Glomerular Filtration Rate Calc 87 >90 mL/min BUN/Creatinine Ratio 10.8 10.0-20.0 Serum Glucose 93 74-106 mg/dL Calcium Level 8.7 8.7-10.4 mg/dL Time of 1ST Reevaluation: 22:15 Reevaluation 1ST: Unchanged Patient Education/Counseling: Diagnosis, Treatment Family Education/Counseling: No Family Present Comments Patient reports pretibial swelling and ankle swelling for few weeks. No calf tenderness no shortness of breath or chest pains. She was recently started on amlodipine. Patient does not have any signs of CHF nor DVTs. Her renal function is also normal. I feel this is most likely lead the result of the calcium channel adriana. Otherwise patient is stable she is safe to be discharged to be followed with her primary doctor. Departure 1 Departure Time of Disposition: 01:37 Impression: Primary Impression: Lower extremity edema Disposition: 01 HOME / SELF CARE / HOMELESS Condition: Good Additional Instructions: Elevate your legs when at rest. Follow up with her doctor to discuss about possible side effects of the Norvasc. Feel free to return to the emergency room for any concerns or worsening of conditions. Discharged With: Self Critical Care Note Critical Care Time?: No Stability Stability form required: No Heart Score Heart Score: Heart Score Response (Comments) Value History N/A 0 EKG N/A 0 Age N/A 0 Risk Factors N/A 0 Troponin N/A 0 Total 0 I personally scribed for NEHEMIAS MCINTOSH MD ([email or web address]) on 07/18/25 at 22:19. Electronically submitted by Jorge Emmanuel ([email or web address]). NEHEMIAS MCINTOSH MD Jul 18, 2025 22:19
[2025-07-19 00:41] LABS: Chloride 104 mmol/L (98-107); Potassium 3.7 mmol/L (3.5-5.1); Sodium 139 mmol/L (136-145)
[2025-07-19 00:42] LABS: Anion Gap 7 (5-15); Carbon Dioxide 28 mmol/L (20-31)
[2025-07-19 00:47] LABS: BUN/Creatinine Ratio 10.8 (10.0-20.0); Blood Urea Nitrogen 9 mg/dL (9-23); Glucose 93 mg/dL (74-106)
[2025-07-19 00:51] LABS: Calcium 8.7 mg/dL (8.7-10.4)
--- NOTE | 2025-07-19 01:18 | DVH ---
CHEST RADIOGRAPH Indication: edema Technique: 1 view Comparison: XY CHEST PORTABLE on DOS: 05/23/25, XY CHEST XRAY 1 VIEW on DOS: 03/10/25, XY CHEST XRAY 1 VIEW on DOS: 11/16/24 FINDINGS: Lines and Tubes: None Lungs: Similar left midlung opacity likely representing scarring/atelectasis. No evidence of acute c onsolidation. Interstitial markings appear within normal limits. Pleura: No effusion or pneumothorax. Cardiomediastinal contours: Heart size within normal limits for technique. Other: No acute osseous abnormality. IMPRESSION: 1. No acute cardiopulmonary abnormality or significant change from prior exam.
[2025-07-19 01:45] VITALS: BP 143/88; PULSE 65; RESP 18; TEMP 97.5; O2SAT 96
== END 2025-07-19 02:00 | disposition home or self-care (01) ==
LOC: ER 21:30
DX: R60.9 Edema, unspecified (principal); E11.9 Type 2 diabetes mellitus without complications; I10 Essential (primary) hypertension; Z86.73 Personal history of transient ischemic attack (TIA), and cerebral infarction without residual deficits; Z79.899 Other long term (current) drug therapy; Z90.710 Acquired absence of both cervix and uterus
CPT/HCPCS: 36415; 71045; 80048

== ENCOUNTER 2025-08-21 22:24 | Emergency (ER) | payer MEDICAID, OTHER ==
[~2025-08-21] VITALS: Ht 165.1 cm; Wt 113.6 kg
[2025-08-21 22:25] VITALS: BP 136/88; PULSE 89; RESP 18; TEMP 97.1; O2SAT 96
[2025-08-21] MEDS ORDERED: SODIUM CHLORIDE 0.9% 1,000 ML IV ONE (22:45)
[2025-08-21] MEDS ORDERED: KETOROLAC TROMETH 30 MG/ML 1ML VIAL IV ONE (22:45)
[2025-08-21] MEDS ORDERED: METOCLOPRAMIDE HCL 5MG/ml INJ 2ml VIAL IV ONE (22:45)
[2025-08-21] MEDS ORDERED: diphenhdrAMINE HCL 50 MG/1 ML VL IV ONE (22:45)
--- NOTE | 2025-08-21 23:02 | ED.PDOC ---
History of Present Illness HPI Comments 45-year-old female came to ER for headaches. History of hypertension, diabetes, brain tumor, status post resection/craniotomy 2011. Has been having occasional headaches since then. Few hours ago, worsening of frontal headaches prompting patient to come to the ER. Denies any nausea or vomiting or dizziness. REVIEW OF SYSTEMS: General: No fever, no chills, or fatigue HEENT: No sore throat, no earache, no congestion, no neck pain. Cardiac: No chest pain. No palpitations. Lungs: No shortness of breath, no cough. GI: No nausea, no vomiting, no diarrhea, no constipation, no abdominal pain : No dysuria, frequency, or urgency. No hematuria. Musculoskeletal: No joint pain , no joint swelling, no extremity edema. Skin: No rash, no itching. Neuro: (+) headache, no dizziness, no weakness EXAM: General: Awake, alert and oriented. No acute distress. Skin: Skin in warm, dry and intact. Appropriate color for ethnicity. HEENT: The head is normocephalic and atraumatic. Conjunctivae are clear without exudates or hemorrhage. Sclera is non-icteric. EOM are intact. No signs of nystagmus. Eyelids are normal in appearance without swelling or lesions. Oral mucosa is pink and moist Neck: The neck is supple with normal range of motion. No JVD. Cardiac: Heart rate and rhythm are normal. No murmurs, gallops, or rubs are auscultated. Respiratory: No signs of respiratory distress. Lung sounds are clear in all lobes bilaterally without rales, rhonchi, or wheezes. Abdominal: Abdomen is soft, non-tender without distention. Bowel sounds are present and normoactive in all four quadrants. Extremities: Upper and lower extremities are atraumatic in appearance without deformity or edema. Neurological: The patient is awake, alert and oriented to person, place, and time with normal speech. Speech is somewhat slurred. There is right facial droop. Patient states this is chronic. Right upper extremity ataxia which is chronic. Psychiatric: Appropriate mood and affect. Good judgement and insight Chief Complaint: Headache Time Seen by MD: 23:01 Primary Care Provider: unknown Reviewed Notes: Customer Management Specialist Notes Allergies: Coded Allergies: Lisinopril (Unverified Allergy, Severe, facial edema, 08/25/24) Amlodipine (Verified Allergy, Unknown, 08/21/25) Home Meds Active Scripts Azithromycin (Zithromax Tri-Syed) 500 Mg Tab, 500 MG PO DAILY for 6 Days, #6 TAB Prov:MUNIRJENNIFER Darian DO 05/23/25 Pantoprazole Sodium Sesquihydr (Protonix) 40 Mg Tab, 40 MG PO DAILY for 25 Days, #25 TAB Prov:LJ TUBBS RESIDENT 03/11/25 Docusate Sodium (Colace) 100 Mg Cap, 1 CAP PO BID, #30 CAP Prov:CHARLIE RANDLE DO 11/17/24 Ferrous Sulfate (Ferrous Sulfate) 325 Mg Tab, 325 MG PO TID, #60 TAB Prov:CHARLIE RANDLE DO 11/14/24 Ibuprofen Micronized (Ibuprofen) 800 Mg Tab, 800 MG PO Q8HP PRN, #40 TAB Prov:CHARLIE RANDLE DO 11/14/24 Hydrocodone-Acetaminophen (Hydrocodone Bitartrate/AC 10-325 mg) 1 Tab Tab, 1 TAB PO Q6HP PRN for 5 Days, #20 TAB Prov:CHARLIE RANDLE DO 11/14/24 Reported Medications Amlodipine Besylate (Amlodipine Besylate) 10 Mg Tab, 10 MG PO DAILY, TAB 08/25/24 Atorvastatin Calcium (Lipitor) 40 Mg Tab, 40 MG PO DAILY, TAB 08/25/24 Information Source: Patient, Emergency Med Personnel Mode of Arrival: EMS Past Medical History PAST MEDICAL HISTORY: CVA, DM, High Lipids, HTN, Seizures Past Medical History (Other): Brain tumor status post resection/craniotomy Surgical History: Hysterectomy, Tubal Ligation FIRE ALARM MECHANIC History: No Pertinent FIRE ALARM MECHANIC History Family History Family History: Reviewed,noncontributory to illness Social History Smoker: Non-Smoker Alcohol: Occasionally Drugs: Denies Drug Use Lives In: Home Was a procedure done? Was a procedure done?: No Differential Dx Considerations may include: Anemia, electrolyte imbalance, migraine headaches X-Ray, Labs, Meds, VS Vital Signs Date Time Temp Pulse Resp B/P (MAP) Pulse Ox O2 Delivery O2 Flow Rate FiO2 08/21/25 22:25 97.1 89 18 136/88 96 97.1 Lab Test 08/21/25 22:54 Range/Units White Blood Count 9.1 4.4-10.8 10^3/uL Red Blood Count 4.86 4.0-5.20 10^6/uL Hemoglobin 12.9 12.2-16.2 g/dL Hematocrit 38.7 36.0-46.0 % Mean Corpuscular Volume 79.6 L 80.0-100.0 fL Mean Corpuscular Hemoglobin 26.5 L 28.0-32.0 pg Mean Corpuscular Hemoglobin Concent 33.3 32.0-36.0 g/dL Red Cell Distribution Width 14.9 H 11.8-14.3 % Platelet Count 366 140-450 10^3/uL Mean Platelet Volume 8.6 6.9-10.8 fL Neutrophils (%) (Auto) 69.2 37.0-80.0 % Lymphocytes (%) (Auto) 19.8 10.0-50.0 % Monocytes (%) (Auto) 7.1 0.0-12.0 % Eosinophils (%) (Auto) 3.4 0.0-7.0 % Basophils (%) (Auto) 0.5 0.0-2.0 % Neutrophils # (Auto) 6.3 1.6-8.6 10 ^3/uL Lymphocytes # (Auto) 1.8 0.4-5.4 10 ^3/uL Monocytes # (Auto) 0.6 0-1.3 10 ^3/uL Eosinophils # (Auto) 0.3 0-0.8 10 ^3/uL Basophils # (Auto) 0 0-0.2 10 ^3/uL Nucleated Red Blood Cells 0.0 % Sodium Level 140 136-145 mmol/L Potassium Level 3.6 3.5-5.1 mmol/L Chloride Level 101 98-107 mmol/L Carbon Dioxide Level 31 20-31 mmol/L Anion Gap 8 5-15 Blood Urea Nitrogen 10 9-23 mg/dL Creatinine 0.87 0.550-1.02 mg/dL Glomerular Filtration Rate Calc 83 >90 mL/min BUN/Creatinine Ratio 11.5 10.0-20.0 Serum Glucose 101 74-106 mg/dL Calcium Level 9.5 8.7-10.4 mg/dL Magnesium Level 1.8 1.6-2.6 mg/dL ORDERING PHYSICIAN: KOBY SANCHEZ MD PROCEDURE(s): HWOCT - HEAD WITHOUT CONTRAST REASON: New onset headache, , worsening, history of brain tumor ORDER NUMBER(s): [id number], ACCESSION NUMBER(s): [id number] EXAM: HEAD WITHOUT CONTRAST INDICATION: New onset headache, , worsening, history of brain tumor TECHNIQUE: CT of the head without intravenous contrast. Radiation Dose Information: CT Dose: CTDI volume is 54.95 mGy. Dose-length product is 88.920 mGy*cm The dose indicators for CT are the volume Computed Tomography (CT) Dose Index (CTDIvol) and the Dose Length Product (DLP), and are measured in units of mGy and mGy-cm, respectively. These indicators are not patient dose, but values generated from the CT scanner acquisition factors. The report includes radiation exposure data for exposures received during this examination. COMPARISON: CT HEAD WITHOUT CONTRAST on DOS: 05/08/25, CT HEAD WITHOUT CONTRAST on DOS: 05/04/25, MRI BRAIN HEAD WO W CONTRAST on DOS: 03/11/25, CT STROKE CTH on DOS: 03/10/25, MRI BRAIN HEAD WO CONTRAST on DOS: 01/17/24 FINDINGS: There is no evidence of acute intracranial hemorrhage, extra-axial collection, mass effect, midline shift, herniation or hydrocephalus. The ventricles, sulci and cisterns are age appropriate. The bautista-white differentiation is intact. Remote infarct in the right cerebellar more than left cerebellar hemisphere. The visualized paranasal sinuses and mastoid air cells are clear. The surrounding soft tissues and osseous structures are unremarkable. IMPRESSION: No acute intracranial abnormality. Time of 1ST Reevaluation: 22:56 Reevaluation 1ST: Unchanged Patient Education/Counseling: Need For Follow Up Family Education/Counseling: No Family Present SEPSIS Sepsis Screen Physician Orders Head Without Contrast (08/21/25 22:45) Vital Signs Date Time Temp Pulse Resp B/P (MAP) Pulse Ox O2 Delivery O2 Flow Rate FiO2 08/21/25 22:25 97.1 89 18 136/88 96 97.1 Laboratory Tests Test 08/21/25 22:54 White Blood Count 9.1 10^3/uL (4.4-10.8) Departure 1 Departure Time of Disposition: 00:27 Impression: Primary Impression: HEADACHE Disposition: 01 HOME / SELF CARE / HOMELESS Condition: Stable Additional Instructions: ED DISCHARGE INSTRUCTIONS Instructions: Please read all instructions provided in this packet carefully. Although you have been discharged from the Emergency Department, this does not mean that you have a "clean bill of health". No definitive diagnosis for your symptoms has been made today. It is possible that you are in the process of developing a serious illness. This is why you must return to the ED without fail if any new or worsening symptoms (especially if your symptoms include chest pain, trouble breathing, abdominal pain, fever, headache, confusion, trouble seeing, or trouble walking) It is also very important that you see a primary care provider (PCP) within the next 3-5 days to follow up. If you are unable to get an appointment, return to the ED for re-evaluation. Overview Headaches have many possible causes. Most headaches aren't a sign of a more serious problem, and they will get better on their own. Home treatment may help you feel better faster. The doctor has checked you carefully, but problems can develop later. If you notice any problems or new symptoms, get medical treatment right away. Follow-up care is a rabago part of your treatment and safety. Be sure to make and go to all appointments, and call your doctor if you are having problems. It's also a good idea to know your test results and keep a list of the medicines you take. How can you care for yourself at home? Rest in a quiet, dark room until your headache is gone. Close your eyes and try to relax or go to sleep. Don't watch TV or read. Put a cold, moist cloth or cold pack on the painful area for 10 to 20 minutes at a time. Put a thin cloth between the cold pack and your skin. Use a warm, moist towel or a heating pad set on low to relax tight shoulder and neck muscles. Have someone gently massage your neck and shoulders. Take pain medicines exactly as directed. If the doctor gave you a prescription medicine for pain, take it as prescribed. If you are not taking a prescription pain medicine, ask your doctor if you can take an [id number] medicine. Do not ignore new symptoms that occur with a headache, such as a fever, weakness or numbness, vision changes, or confusion. These may be signs of a more serious problem. To prevent headaches Keep a headache diary so you can figure out what triggers your headaches. Avoiding triggers may help you prevent headaches. Record when each headache began, how long it lasted, and what the pain was like (throbbing, aching, stabbing, or dull). Write down any other symptoms you had with the headache, such as nausea, flashing lights or dark spots, or sensitivity to bright light or loud noise. Note if the headache occurred near your period. List anything that might have triggered the headache, such as certain foods (chocolate, cheese, wine) or odors, smoke, bright light, stress, or lack of sleep. Find healthy ways to deal with stress. Headaches are most common during or right after stressful times. Take time to relax before and after you do something that has caused a headache in the past. Try to keep your muscles relaxed by keeping good posture. Check your jaw, face, neck, and shoulder muscles for tension, and try relaxing them. When sitting at a desk, change positions often, and stretch for 30 seconds each hour. Get plenty of sleep and exercise. Eat regularly. Long periods without food can trigger a headache. Limit caffeine by not drinking too much coffee, tea, or soda. But don't quit caffeine suddenly, because that can also give you headaches. Reduce eyestrain from computers by blinking frequently and looking away from the computer screen every so often. Make sure you have proper eyewear and that your monitor is set up properly, about an arm's length away. When should you call for help? Call 911 anytime you think you may need emergency care. For example, call if: You have signs of a stroke. These may include: Sudden numbness, paralysis, or weakness in your face, arm, or leg, especially on only one side of your body. Sudden vision changes. Sudden trouble speaking. Sudden confusion or trouble understanding simple statements. Sudden problems with walking or balance. A sudden, severe headache that is different from past headaches. Call your doctor now or seek immediate medical care if: You have a fever and a stiff neck. You have new nausea and vomiting, or you cannot keep down food or fluids. Your headache gets much worse. Watch closely for changes in your health, and be sure to contact your doctor if: Your headaches get worse, happen more often, or change in some way. You have new symptoms. Your life is disrupted by your headaches. For example, you often miss work, school, or other activities. You do not get better as expected. Comments 45-year-old female presents with headache. No new focal neurological symptoms. Pt is nontoxic. VSS. Based on history, diagnostic studies and normal neurological exam I have low suspicion for intracranial tumor, intracranial bleed, meningitis, temporal arteritis, glaucoma, CO poisoning. Most likely patient has benign headache, recommend rest, hydration, and OTC pain control. Extensive evaluation was performed in attempt to identify or rule out: (See differential diagnosis section) The following tests were ordered, and results were reviewed by me and discussed with patient: (See diagnostic results section) Decision regarding hospitalization or escalation of hospital level of care: Risks and benefits of admission for further treatment of patient's condition was considered however due to patient's stable condition patient will be discharged to follow up closely or return to care for worsening of condition or inability to follow up. Critical Care Note Critical Care Time?: No Stability Stability form required: No Heart Score Heart Score: Heart Score Response (Comments) Value History N/A 0 EKG N/A 0 Age N/A 0 Risk Factors N/A 0 Troponin N/A 0 Total 0 I personally scribed for KOBY SANCHEZ MD ([email or web address]) on 08/21/25 at 23:01. Electronically submitted by Jorge Emmanuel ([facility]). KOBY SANCHEZ MD Aug 21, 2025 23:01
[2025-08-21 23:10] LABS: Hematocrit 38.7 % (36.0-46.0); Hemoglobin 12.9 g/dL (12.2-16.2); Mean Corpuscular Hemoglobin 26.5 pg (28.0-32.0); Mean Corpuscular Volume 79.6 fL (80.0-100.0); Nucleated Red Blood Cells % 0.0 %
[2025-08-21 23:19] LABS: Chloride 101 mmol/L (98-107); Potassium 3.6 mmol/L (3.5-5.1); Sodium 140 mmol/L (136-145)
[2025-08-21 23:20] LABS: Anion Gap 8 (5-15); Carbon Dioxide 31 mmol/L (20-31)
[2025-08-21 23:21] LABS: Calcium 9.5 mg/dL (8.7-10.4)
[2025-08-21 23:25] LABS: Glucose 101 mg/dL (74-106)
[2025-08-21 23:26] LABS: BUN/Creatinine Ratio 11.5 (10.0-20.0); Blood Urea Nitrogen 10 mg/dL (9-23); Magnesium 1.8 mg/dL (1.6-2.6)
--- NOTE | 2025-08-22 00:01 | DVH ---
EXAM: HEAD WITHOUT CONTRAST INDICATION: New onset headache, , worsening, history of brain tumor TECHNIQUE: CT of the head without intravenous contrast. Radiation Dose Information: CT Dose: CTDI volume is 54.95 mGy. Dose-length product is 88.920 mGy*cm The dose indicators for CT are the volume Computed Tomography (CT) Dose Index (CTDIvol) and the Dose Length Product (DLP), and are measured in units of mGy and mGy-cm, respectively. These indicators are not patient dose, but values generated from the CT scanner acquisition factors. The report includes radiation exposure data for exposures received during this examination. COMPARISON: CT HEAD WITHOUT CONTRAST on DOS: 05/08/25, CT HEAD WITHOUT CONTRAST on DOS: 05/04/25, MRI BR AIN HEAD WO W CONTRAST on DOS: 03/11/25, CT STROKE CTH on DOS: 03/10/25, MRI BRAIN HEAD WO CONTRAST on DOS: 01/17/24 FINDINGS: There is no evidence of acute intracranial hemorrhage, extra-axial collection, mass effect, midline s hift, herniation or hydrocephalus. The ventricles, sulci and cisterns are age appropriate. The bautista-white differentiation is intact. Remote infarct in the right cerebellar more than left cereb ellar hemisphere. The visualized paranasal sinuses and mastoid air cells are clear. The surrounding soft tissues and osseous structures are unremarkable. IMPRESSION: No acute intracranial abnormality.
== END 2025-08-22 03:33 | disposition home or self-care (01) ==
LOC: EDBD 22:24 → ER 22:24
DX: R51.9 Headache, unspecified (principal); I10 Essential (primary) hypertension; E11.9 Type 2 diabetes mellitus without complications; E78.5 Hyperlipidemia, unspecified; Z79.899 Other long term (current) drug therapy; Z86.73 Personal history of transient ischemic attack (TIA), and cerebral infarction without residual deficits; Z90.710 Acquired absence of both cervix and uterus; Z98.890 Other specified postprocedural states; Z88.8 Allergy status to other drugs, medicaments and biological substances
CPT/HCPCS: 36415; 70450; 80048; 83735; 85025